=== PATIENT | female | born 1985 | race Caucasian/White ===

== ENCOUNTER → 2021-10-26 | Outpatient (CLI) | payer OTHER, MEDICAID, SELFPAY ==
[2021-10-26 18:27] LABS: T4 Free Direct 1.04 ng/dL (0.76-1.46); Thyroid Stim Hormone (TSH) 1.01 uIU/mL (0.358-3.74)
[2021-10-28 10:44] LABS: Thyroid Peroxidase AB < 8 IU/mL (0-34)
== END | disposition home or self-care (01) ==
LOC: BIMLAB 15:58
PROVIDERS: Referring Provider Internal Medicine Endocrinology, Diabetes & Metabolism; Visit Provider Internal Medicine Endocrinology, Diabetes & Metabolism
DX: E04.9 Nontoxic goiter, unspecified (principal)
CPT/HCPCS: 36415; 84439; 84443; 86376

== ENCOUNTER 2022-05-10 08:11 | Day surgery (SDC) | payer OTHER, MEDICAID, SELFPAY ==
[2022-05-10] VITALS (8 sets, daily range): BP systolic 113–160; BP diastolic 64–98; PULSE 49–72; RESP 16; TEMP 36.1–36.6; O2SAT 95–100; BMI 34.2
[2022-05-10] MEDS: Lactated Ringers 1,000 ML 15 ML IV (08:45)
--- NOTE | 2022-05-10 09:50 | TUR_PTH ---
PATIENT: KONG COURTNEY LOC: [facility] U#:[id number] AGE/SX: 36/F ROOM: RE05/10/[address]: Dr. Dev Mesa MD : [id number] BED: DIS: 05/10/2022 SPEC #: [id number] RECD: 05/10/22 11:09 STATUS: JELLY ALONSO #: [id number] LAUREN: 05/10/22 09:[address]: Dev Mesa DEPT: SURGICAL PATHOLOGY RECD BY: Elaine Lara ENTERED: 05/10/22 11:28 SP TYPE: TURBINATES OTHR DR: No Primary Care Phys Tissues: Nasal turbinate, NOS Procedures: Decalcification bone/plaque Surgery Specimen Level IV HEADER OPERATION: Septoplasty, partial resection inferior turbinates PRE-OP DIAGNOSIS: Nasal congestion, hypertrophy nasal turbinates, deviated nasal septum TISSUE SUBMITTED: Bone, cartilage, turbinates MICROSCOPIC DIAGNOSIS Bone, cartilage and turbinate: Fragments of benign respiratory mucosa, blood and mucus. A fragment of benign squamous epithelium. A fragment of cartilage, clinically deviated nasal septum. SJ:isaac 05/13/2022 MICROSCOPIC DESCRIPTION Slides are reviewed. GROSS DESCRIPTION Received in fixative is one container labeled with the patient's name and designated bone and cartilage, turbinates. The specimen consists of multiple irregular fragments of pink-daily soft tissue that in aggregate measure 2.5 x 2 x 0.2 cm. Also present in the specimen container is an irregular fragment of daily-white gritty tissue measuring 1 x 0.2 x 0.2 cm. The specimen is totally submitted in two cassettes as follows: 1??soft tissue, 2 - gritty tissue after decalcification. / AM:isaac 05/10/2022 TC:[address] [facility]: [id number], [id number]
--- NOTE | 2022-05-10 09:52 | PCM.DC.SUM ---
Providers Primary Care Physician: No Primary Care Phys Reason For Visit: SEPTOPLASTY,PARTIAL RESECTION INFERIOR TURBINATES Medications at Discharge Home Medications loratadine 10 mg tablet (Claritin) 10 mg PO DAILY PRN PRN Allergy Symptoms 10/26/21 cyanocobalamin (B12)-cobamamide 5,000 mcg-100 mcg sublingual lozenge (B12) 1 duane sublingual DAILY 05/04/22 Weight / BMI Weight Weight: 87.5 kg Body Mass Index (BMI) 34.2 D/C Instructions Discharge Diet: No restrictions Additional Activity Instructions: No nose blowing. Start saline nasal spray on 05/11/22. [place] 3 squirts each nostril 3x/day. Please Follow Up With: Dev Mesa MD When: 8 days Meaningful Use Info Meaningful Use Diagnoses (Choose all that apply): None applicable Discharge Plan Admission Attending Provider: Dev Mesa Primary Care Provider: Care PhysicianLouise Primary Discharge Orders/Prescriptions Prescriptions: No Action loratadine [Claritin] 10 mg tablet 10 mg PO DAILY PRN PRN (Reason: Allergy Symptoms) B12 5,000-100 mcg Lozenge 1 duane SUBLINGUAL DAILY Referrals / Follow Up: Care Physician,No Primary [Primary Care Provider] - Disposition Disposition (needs filled in before D/C Order can be placed): Home, Self Care
[2022-05-10] MEDS: Oxymetazoline 0.05% 1 SPRAY SPRAY.BTL 15 SPRAY (10:02)
[2022-05-10] MEDS: Lidocaine 2% /Epi 1:100 (20ml) 20 ML VIAL OPERA.SITE (10:02)
[2022-05-10] MEDS: Mupirocin Ointment 22gm Tube 1 APPLIC (10:21)
--- NOTE | 2022-05-10 10:40 | PCM.OPRPT ---
Report of Operation Date of Procedure: 05/10/22 Pre-Operative Diagnosis: nasal airway obstruction; deviated septum; inferior turbinate hypertophy Post-Operative Diagnosis: same Surgery/Procedure Performed:: septoplasty bilateral submucous resection inferior turbinates Surgeon: Dev Mesa Type of Anesthesia: General Anesthesiologist: Clifford Gaston Estimated Blood Loss (mL): minimal Description of Procedure: The patient was taken to the operating room on 05/10/2022. He was placed in supine position on the operating table. He was given sufficient general endotracheal anesthesia. The table was elevated 30 degrees. The nose was draped sterilely. 2% lidocaine with epinephrine was injected into the septum nasal floor anterior aspect of the inferior turbinates bilaterally. Nasal hair was trimmed with the scissors and removed. A right hemitransfixion incision was made with a 15 blade. The mucoperichondrium was elevated off of the left-hand side of the septum with a [place] elevator. Dissection was carried back until no cartilage was visualized about midway back. She had clearly had cartilage removed from a previous surgery. I the quadrangular cartilage from the maxillary crest. I then removed deviated portions of the quadrangular cartilage inferiorly. I then scored the remaining cartilage with a 15 blade. Hemostasis was achieved with Afrin pledgets. Next, an incision was placed anterior aspect of the right inferior turbinate at the mucocutaneous junction. A submucous plane established with a caudal elevator. Submucous resection was carried out using a microdebrider where bone and tissue was removed. Afrin pledgets were used for hemostasis. The incision was then closed with 4-0 chromic. Then, an incision was placed at the anterior aspect of the left inferior turbinate at the mucocutaneous junction. A submucous plane established using a caudal elevator. Submucous resection was carried out using a microdebrider where bone and tissue were removed. The incision was then closed with 4-0 chromic. Afrin and Maritza were used for hemostasis. The hemitransfixion incision was closed with 4-0 chromic. Franco nasal splints were applied to each side of the septum and sewn through and through with 3-0 silk. The patient was then awoken and brought to the recovery room in stable condition. Blood loss minimal, replacement none. Sponge, needle count, sponge count, were correct at the end of this procedure.
[2022-05-10] MEDS: HYDROcodone Bitartrate/Apap 5/325 Tablet PO (12:38)
== END 2022-05-10 14:45 | disposition home or self-care (01) ==
LOC: SDC 08:14 → AC 08:17
PROVIDERS: Referring Provider Otolaryngology; Visit Provider Otolaryngology
PROC: (CPT 30520; principal; 2022-05-10 09:35)
DX: J34.2 Deviated nasal septum (principal); J34.89 Other specified disorders of nose and nasal sinuses; R09.81 Nasal congestion; J34.3 Hypertrophy of nasal turbinates; F41.9 Anxiety disorder, unspecified; Z87.891 Personal history of nicotine dependence
CPT/HCPCS: 30520; 30140; 00160; 88304; 88305; 88311; J7120; J2405

== ENCOUNTER → 2022-10-23 | Outpatient (CLI) | payer OTHER, MEDICAID, SELFPAY ==
--- NOTE | 2022-10-23 09:09 | CT_ITS ---
STUDY: CT MAXILLOFACIAL SINUSES REASON FOR EXAM: Female, 36 years old. SINUSITIS RADIATION DOSAGE (If Supplied By Facility): CTDIvol = ( 33.06 ) mGy, DLP = ( 742.94 ) mGycm TECHNIQUE: The patient was scanned in a multi detector CT scanner. High resolution axial imaging was performed without the administration of intravenous contrast material. Sagittal and coronal images were reconstructed. Individualized dose optimization techniques were used for this CT. COMPARISON: None. FINDINGS: FRONTAL SINUSES: Normal aeration, without mucosal inflammatory disease. ETHMOIDAL SINUSES: Normal aeration, without mucosal inflammatory disease. MAXILLARY SINUSES: Mucous retention cysts/polyps in the maxillary sinus bases SPHENOIDAL SINUSES: Normal aeration, without mucosal inflammatory disease. There is patency of the bilateral maxillary infundibuli with normal uncinate processes, ethmoid bullae, and hiatus semilunaris. Normal bilateral middle turbinates. Normal bilateral inferior turbinates. Normal midline nasal septum. There is patency of the bilateral nasal airways. The visualized osseous structures are normal. The visualized bilateral orbital contents are normal. CT/Sinus/Facial Bone IMPRESSION: Mucous retention cysts/polyps in the bases of both maxillary sinuses. Ostiomeatal complexes are widely patent No demonstrated fracture or suspicious osseous lesion Electronically Signed: Donovan Santillan MD at 13:56 EDT ,
== END | disposition home or self-care (01) ==
LOC: CT 09:07
PROVIDERS: PCP Registered Nurse; Visit Provider Otolaryngology
DX: J32.8 Other chronic sinusitis (principal)
CPT/HCPCS: 70486

== ENCOUNTER 2025-01-12 10:01 | Emergency (ER) | payer MEDICAID, SELFPAY ==
[2025-01-12 10:02] VITALS: BP 119/75; PULSE 58; RESP 16; TEMP 37; O2SAT 99; BMI 35.9
--- NOTE | 2025-01-12 10:26 | EKG12_ITS ---
Test Reason : CP/ABD PAIN Blood Pressure : */* mmHG Vent. Rate : 49 BPM Atrial Rate : 49 BPM P-R Int : 156 ms QRS Dur : 80 ms QT Int : 472 ms P-R-T Axes : 27 27 5 degrees QTcB Int : 426 ms Sinus bradycardia Otherwise normal ECG Confirmed by JILL BOYCE, HIRA ([id number]), editor school photograph RICHARD CERVANTES ([id number]) on 01/14/2025 11:30:37 AM Referred By: Confirmed By: HIRA MELCHOR MD
--- NOTE | 2025-01-12 10:27 | EX.ED.DYSGE1 ---
HPI History of Present Illness Chief Complaint: Chest Pain Detail of Chief Complaint: Chest and abdomen pain Informant: patient Narrative Narrative: Patient presents with chest and abdomen pain. She states she has been having abdominal pain for about a week. She was seen in the emergency department at [facility] 5 days ago and had an ultrasound of the gallbladder. She was called 2 days ago and told she had a gallstone in her bile duct. Patient has had prior cholecystectomy. She complains of upper abdomen pain that radiates to her right chest and into her back. Also complains of some inflammation in her throat. Today she was doing some gardening and developed some discomfort in her left chest. She does have history of anxiety. Currently rates her pain a 6 out of 10. She has had nausea. Vomited twice this week. Pain in her abdomen made worse by eating at times. [facility] Medical History (Updated 01/12/25 @ 12:[address] Jas Brown, ) FHx: cholecystectomy History of thyroid nodule Anxiety Migraine headache Heartburn Gastric reflux Former smoker History of edema Weight gain Nodular goiter Carpal tunnel syndrome Cholecystectomy planned Tonsillectomy planned Leaky heart valve GERD (gastroesophageal reflux disease) Pneumonia Headache Gastrointestinal problem Gallstone H/O emotional problems Carpal tunnel syndrome UTI (urinary tract infection) Asthma Anemia Home Medications ?Medication ?Instructions ?Recorded ?Last Taken ?Type cholecalciferol (vitamin D3) 25 25 mcg PO DAILY 01/12/25 Unknown History mcg (1,000 unit) capsule fluticasone propionate 50 1 - 2 spray intranasal DAILY 01/12/25 Unknown History mcg/actuation nasal spray,suspension hydrocodone-acetaminophen 5-325mg 1 tab PO Q4H PRN PRN Pain 2 days 01/12/25 Unknown Rx 5mg-325mg #10 TABLETS omeprazole 40 mg capsule,delayed 40 mg PO DAILY 01/12/25 01/12/25 History release ondansetron 4 mg disintegrating 4 mg PO Q8H 01/12/25 Unknown History tablet ondansetron 4 mg disintegrating 4 mg PO Q8H PRN PRN Nausea #10 tabs 01/12/25 Unknown Rx tablet Allergy/AdvReac Type Severity Reaction Status Date / Time bee venom protein (honey Allergy Swelling Verified 01/12/25 10:02 bee) (bees) morphine AdvReac Severe swelling Verified 01/12/25 10:02 Family History Other Alcohol abuse Anxiety Depression Hypertension Surgical History H/O rhinoplasty H/O total hysterectomy Previous section Social History Smoking Status: Former smoker alcohol intake: current alcohol intake frequency: holidays/special occasions only substance use type: does not use ROS ROS ED Review of Systems ROS Unobtainable: other Constitutional Constitutional ED: Reports lethargy; Denies chills, fever(s), sweats or weight loss Eyes Eyes: Denies blurry vision, change in vision or diplopia ENT ENT ED: Denies rhinorrhea or sore throat Cardiovascular Cardiovascular: Reports chest pain; Denies orthopnea or racing heartbeat Respiratory/Chest Respiratory/Chest: Reports dyspnea and dyspnea on exertion; Denies cough, orthopnea or sputum Gastrointestinal Gastrointestinal: Reports abdominal pain, nausea and vomiting; Denies diarrhea Genitourinary Genitourinary ED: Denies dysuria, hematuria or urinary frequency Musculoskeletal Musculoskeletal: Denies arthralgias, back pain, myalgias or neck pain Integumentary Denies abscess, Abrasions or rash Neurologic Neurologic: Denies headache(s) or weakness Psychiatric Psychiatric: Denies anxiety, depression or suicidal thoughts Endocrine Endocrinology: Denies polydipsia, polyphagia or polyuria Hematologic/Lymphatic Hematologic/Lymphatic: Denies easy bleeding, easy bruising or lymphadenopathy Allergic/Immunologic Allergic/Immunologic ED: Denies mouth swelling, tongue swelling or urticaria EXAM Physical Exam Const Vital Signs: 01/12/25 10:02 01/12/25 10:10 01/12/25 12:01 Temperature 98.6 F Temperature Source Oral Pulse Rate 58 L 44 L Respiratory Rate 16 18 Respiratory Effort Normal Blood Pressure 119/75 105/65 Blood Pressure Mean 89 78 Pulse Ox 99 100 Oxygen Delivery Method Room Air Room Air 01/12/25 12:23 Temperature 98.6 F Temperature Source Pulse Rate 44 L Respiratory Rate 18 Respiratory Effort Blood Pressure 105/65 Blood Pressure Mean 78 Pulse Ox 100 Oxygen Delivery Method Positive well nourished and well developed General Appearance ED: well developed and NAD HEENT Reports TM's clear and moist mucous membranes normocephalic and atraumatic; Negative for trauma or tenderness Tympanic Membrane ED: Yes TM's clear Eyes PERRL and EOMs intact bilaterally General Eye ED: Negative for pale conjunctiva or scleral icterus Neck no lymphadenopathy, supple and no JVD General: Negative for tenderness Chest Wall inspection of chest normal and palpation of chest normal Chest: Negative for tenderness Resp normal respiratory effort and clear to auscultation bilaterally Effort and Inspection: Negative for respiratory distress or pain with movement Auscultation: Negative for rhonchi, wheezes or diminished lung sounds Cardio regular rate, regular rhythm, S1 normal heart sound, S2 normal heart sound and no murmurs Peripheral Pulses: pulses 2+ throughout GI normal to inspection, nondistended, normoactive bowel sounds, soft to palpation, non-distended and no masses GI Narrative: Tenderness palpation over the right upper quadrant and epigastric region with some guarding. There is no rebound, rigidity, peritoneal signs. No mass palpated Back/Spine no CVA tenderness and no thoracic nor lumbar tenderness Extremity normal to inspection General Extremety ED: Negative for edema General Extremity: Negative for edema Neuro oriented x3, CN's II-XII intact bilaterally, no sensory deficits noted and gait normal Sensorium / Orientation: awake, alert, oriented to person, oriented to place and oriented to time Motor Exam: strength 5/5 throughout and strength abnormal Psych mental status grossly normal Skin no rashes or lesions noted and no wounds MDM MDM MDM Narrative Medical decision making narrative: Patient presents with abdominal pain for a week. Pain in the right upper abdomen and epigastric region. Had an ultrasound 5 days ago that showed possibility of a retained stone within the common bile duct that she has had prior cholecystectomy. Clinically she looks well on arrival. IV line established. She was medicated with Dilaudid and Zofran. CBC with differential white count 5.3 with hemoglobin 12.8 and platelet count of 233. Chemistries unremarkable. LFTs were normal. Lactate less than 1. EKG obtained on arrival showed sinus bradycardia with a rate of 49 bpm with no acute ST segment changes. Troponin was normal at less than 6. Lipase normal at 31. I did obtain a CT scan of the abdomen pelvis with IV contrast that showed no acute disease process. I was able to obtain results of ultrasound from [facility] which showed common bile duct measuring 6.5 mm which is considered normal postcholecystectomy. An echo genic density measuring 1.2 x 0.8 x 0.6 cm is visualized within the common bile duct which may represent a stone. Discussed case with general surgeon on-call Dr. Zhang. He felt patient could follow-up as an outpatient with GI versus transfer to another facility where they have GI coverage as he does not do ERCPs currently. I had conversation with patient and she does not want to be transferred at this time. She would like to go home and try to manage her diet. Will write her prescription for Zofran and hydrocodone for pain. Will refer to GI to follow-up as an outpatient as she may need EGD and possibly ERCP. Patient advised return if worsening pain, fever, vomiting, or condition should worsen in any way. Lab Data Attestation: I reviewed the patient's lab results. Labs: Laboratory Results - last 24 hr 01/12/25 01/12/25 10:18 10:35 WBC 5.3 RBC 4.35 Hgb 12.9 Hct 37.7 MCV 86.7 MCH 29.7 MCHC 34.2 RDW Std Deviation 40.4 RDW Coeff of Gay 13.0 Plt Count 233 MPV 10.3 Immature Gran % (Auto) 0.200 Neut % (Auto) 56.2 Lymph % (Auto) 29.8 Barry % (Auto) 9.4 Eos % (Auto) 3.8 Baso % (Auto) 0.6 Absolute Neuts (auto) 3.0 Absolute Lymphs (auto) 1.58 Nucleated RBC % 0 Sodium 137 Potassium 4.2 Chloride 104 Carbon Dioxide 22.7 Anion Gap 11 BUN 18 Creatinine 0.78 Estim Creat Clear Calc 102.30 Est GFR (MDRD) Non-Af 97 BUN/Creatinine Ratio 22.7 H Glucose 91 Lactic Acid < 1.0 Calcium 9.3 Total Bilirubin 0.30 AST 23 ALT 21 Alkaline Phosphatase 69 Troponin T High Sens < 6 Total Protein 7.2 Albumin 4.4 Globulin 2.8 Albumin/Globulin Ratio 1.6 Lipase 31 Radiography Diagnostic Testing: Clinical Impression(s) from Imaging Studies Abdomen/Pelvis CT 01/12/25 11:00 IMPRESSION: Unremarkable CT abdomen pelvis. Reading Location: [id number] EKG Initial EKG: Attestation: I personally reviewed and interpreted this EKG as follows: Comments: Sinus rhythm with ventricular rate of 49 bpm with no acute ST segment change Discharge Plan Triage Chief Complaint: Chest Pain ED Provider: Jas Brown Dx/Rx/DC Orders Clinical Impression: Abdominal pain Instructions: ED Abdominal Pain Unkn Cause Fem Prescriptions: New hydrocodone-acetaminophen 5-325 mg tablet 1 tab PO Q4H PRN PRN (Reason: Pain) 2 Days Qty: 10 0RF ondansetron 4 mg tablet,disintegrating 4 mg PO Q8H PRN PRN (Reason: Nausea) Qty: 10 0RF No Action fluticasone propionate 50 mcg/actuation spray,suspension 1 - 2 spray INTRANASAL DAILY omeprazole 40 mg capsule,delayed release(DR/EC) 40 mg PO DAILY ondansetron 4 mg tablet,disintegrating 4 mg PO Q8H cholecalciferol (vitamin D3) 25 mcg (1,000 unit) capsule 25 mcg PO DAILY Primary Care Provider: Anisa Vee NP Referrals: Lamin Herrera DO [Med Staff - Active Staff] - 3-5 Days Anisa Vee NP, DISPOSITION CLERK-C [Primary Care Provider] - Print Language: Estonian Disposition Disposition: Home, Self Care
[2025-01-12] MEDS: 0.9% Normal Saline (1000mL) 1,000 ML 125 ML IV (10:36)
[2025-01-12 10:43] LABS: Hematocrit 37.7 % (37-47); Hemoglobin 12.9 g/dL (12.0-15.0); Immature Granulocytes Count 0.010 X10^3/uL (0.0-0.0); Mean Corp Hgb Conc 34.2 g/dL (32-36); Mean Corpuscular Volume 86.7 fL (81-99); Mean Platelet Vol. 10.3 fl (6.2-12.0); NRBC Flagged by Analyzer 0 % (0-5); Platelet Count 233 K/mm3 (150-450); RBC Distribution Width CV 13.0 % (11.6-14.6); RBC Distribution Width SD 40.4 fl (35.1-43.9); Red Blood Count 4.35 M/mm3 (4.2-5.4); White Blood Count 5.3 K/mm3 (4.4-11.0)
[2025-01-12 10:57] LABS: AST(SGOT) 23 U/L (<=31); Alanine Aminotransfer ALT/SGPT 21 U/L (<=34); Albumin, Serum 4.4 g/dL (3.5-5.0); Alkaline Phosphatase 69 U/L (35-104); Anion Gap 11 (5-15); BUN 18 mg/dL (4-19); BUN/Creat Ratio 22.7 RATIO (10-20); Calcium,Total 9.3 mg/dL (7.6-11.0); Carbon Dioxide 22.7 mmol/L (21.0-32.0); Chloride 104 mmol/L (98-108); Estimated Creatinine Clearance 102.30 ml/min (50-250); Globulin 2.8 g/dL (2.2-4.2); Glucose 91 mg/dL (70-99); Lipase 31 U/L (13-75); Potassium 4.2 mmol/L (3.3-5.1)
[2025-01-12 10:58] LABS: Troponin T High Sensitivity < 6 ng/L (<=14)
--- NOTE | 2025-01-12 11:00 | CT_ITS ---
PROCEDURE: ABDOMEN/PELVIS W IV CONT ONLY 01/12/2025 REASON FOR EXAM: ABDOMINAL PAIN TECHNIQUE: ABDOMEN/PELVIS W IV CONT ONLY Coronal and Sagittal reconstruction series were provided. CONTRAST: Isovue 370 VOLUME: 100 mL One or more dose reduction techniques were used (e.g., Automated exposure control, adjustment of the mA and/or kV according to patient size, use of iterative reconstruction technique. RADIATION DOSE SUMMARY: DLP: 1200 mGycm COMPARISON: None. FINDINGS: Lung bases: Bibasilar atelectasis. Liver: The liver is normal in size without suspicious hepatic mass. The major portal veins are patent. Minimal biliary ductal dilation. Gallbladder: Surgically absent. Spleen: Normal in size. Pancreas: Unremarkable. Adrenals: No adrenal mass. Kidneys: No hydronephrosis or nephrolithiasis. Bladder: Distended and unremarkable. Reproductive Organs: Prior hysterectomy. Bowel: The bowel loops are nondilated. No ascites or pneumoperitoneum. Normal appendix. Lymph nodes: No suspicious lymph node enlargement. Vasculature: The abdominal aorta and IVC are normal. Bones: Unremarkable. CT/Abdomen/Pelvis W IV Cont ONLY IMPRESSION: Unremarkable CT abdomen pelvis. Reading Location: [id number]
--- OUTSIDE RECORDS SUMMARY | 2025-01-12 11:16 | XMS RPT_ITS | CCD ---
Author Organization [facility] Care Team Providers Care Construction Supervisor/Carpenter Name Role Phone MARILIN BOYCE, TEJAS Batista Primary Care Physician Dr. Conrad Jenkins Attending Provider [phone] JANESSA COLEMAN-MORIS, ANISA Stroud Primary Care Physi vivian Care Physician, No Primary Primary Care Unava ilable Dev Mesa Referring Unavailable Dev Mesa Attending Unavailable Conrad Jenkins Attending Unavailable Conrad Jenkins Referring Unavailable [place] Germain Attending Unavailalexa e Anisa Riddle Primary Care Unavailable Conrad Jenkins Attending Unavailable ANISA RIDDLE Primary Care Unavailable SUPPAN DPM, LEEROY Najera Attending Unavailable SUPPAN DPM, LEEROY Najera Attending Unavailable ANISA RIDDLE Primary Care Unavailable JANESSA, ANISA Primary Care Unavailable SUPPAN DPM, LEEROY Najera Attending Unavailable DONNIE RIDDLEBETH Primary Care Unavailable SUPPAN DPM, LEEROY Najera Attending Unavailable JANESSA, ANISA Primary Care Unavailable CELINE YEBOAH Attending Unavailable ANISA RIDDLE Primary Care Unavailable CELINE YEBOAH Attending Unavailable JANESSA COLEMAN-MORIS, ANISA Stroud Primary Care Un available VANESSA AVITIA DO Attending Unavailable VANESSA AVITIA DO Attending Unavailable ANISA PINA Primary Care Un available LY PAETL Attending Unava ilable JANESSA COLEMAN-MORIS, ANISA A Primary Care Un available Allergies Allergy Classification Reported Allergen(s) Allergy Type Date of Onset Reaction(s) Facility (14 sources) Bee/Wasp/Ant venom Allergy to substance Swelling [facility] (9 sources) Morphine; Translations: [morphine] Drug Allergy 2 Edema (finding) [facility] Comment on above: swelling of face and hands (1 source) Morphine Drug Allergy 2 [facility] Repository Medications Current Medications Medication Drug Class(es) Dates Sig (Normalized) Sig (Original) acetaminophen 650 mg oral tablet (3 sources) Start: 12-22-2020 Tylenol 8 Hour 650 mg oral tablet, extended release Dose : 1,300 mg = 2 tab(s), Oral, q8h, PRN as needed for pain, # 24 tab(s), 0 Refill(s) Start Date: 12/22/20 Status: Ordered albuterol 0.83 mg/ml inhalation solution (5 sources) beta2-Adrenergic Agonist Start: 05-10-2023 take 1 dose by inhalation every four hours as needed albuterol 2.5 mg/3 mL (0.083%) inhalation solution Dose : 2.5 mg = 3 mL, Inhalation, q4h, PRN for wheezing, # 60 EA, 0 Refill(s), Pharmacy: [facility] #[id number], Asthma, 159, cm, 05/10/23 13:16:00 EST, Height, kg, 05/10/23 13:16:00 EST, Dosing Weight Start Date: 05/10/23 Status: Ordered Quantity: 60.0 Unit: EA Repeat number: 1 Indications: Unspecified asthma, uncomplicated; albuterol MDI (90 mcg/inh) CFC free inhalation aerosol (7 sources) Start: 03-08-2024 take 1 puff(s) by inhalation every four hours as needed for wheezing albuterol MDI (90 mcg/inh) CFC free inhalation aerosol 1 puff(s), Inhalation, q4h, PRN as needed for wheezing, # 18 gram(s), 0 Refill(s), Pharmacy: [facility]/pharmacy #[id number], 162.6, cm, 03/08/24 9:58:00 EDT, Height, kg, 03/08/24 9:58:00 EDT, Dosing Weight Start Date: 03/08/24 Status: Ordered Quantity: 18.0 Unit: g Repeat number: 1 Start: 03-08-2024 take 1 puff(s) by in halation every four hours as needed for wheezing albuterol MDI (90 mcg/inh) CFC free inhalation aerosol 1 puff(s), Inhalation, q4h, PRN as needed for wheezing, # 18 gram(s), 0 Refill(s), Pharmacy: [facility]/pharmacy #[id number], 162.6, cm, 03/08/24 9:58:00 EDT, Height, kg, 03/08/24 9:58:00 EDT, Dosing Weight Start Date: 03/08/24 Status: Ordered Start: 01-25-2023 take 1 puff(s) by in halation every four hours as needed for wheezing albuterol MDI (90 mcg/inh) CFC free inhalation aerosol 1 puff(s), Inhalation, q4h, PRN as needed for wheezing, # 18 gram(s), 0 Refill(s), Pharmacy: [facility] #[id number], 163, cm, 01/25/23 15:58:00 EDT, Height, kg, 01/25/23 15:58:00 EDT, Dosing Weight Start Date: 01/25/23 Status: Ordered CLA (1 source) Start: 10-26-2021 CLA Active PO October 26, 2021 3:08pm cobamamide 0.1 mg / vitamin b12 5 mg sublingual tablet (1 source) Vitamin B12 Start: 05-04-2022 Cyanocobalamin-Cob amamide (B12) 5,000-100 mcg Lozenge Active 1 LOZENGE SL DAILY May 03, 2022 11:00pm diphenhydrAMINE hydrochloride 25 mg oral capsule (2 sources) Histamine-1 Receptor Antagonist Start: 06-05-2021 Benadryl 25 mg oral capsule Dose : 25 mg = 1 cap(s), Oral, qDay, PRN for allergy symptoms, 0 Refill(s) Start Date: 06/05/21 Status: Ordered esomeprazole 20 mg oral tablet (1 source) Proton Pump Inhibitor Start: 10-26-2021 take 20 mg by mouth once daily Esomeprazole Magnesium Active 20 MG PO DAILY October 26, 2021 3:06pm herbal/nutritional product (4 sources) Start: 02-16-2024 take 3 capsules by mouth twice daily herbal/nutritional product 3 cap, Oral, BID, 0 Refill(s) Start Date: 02/16/24 Status: Ordered Repeat number: 1 Start: 02-16-2024 take 3 capsules by m outh twice daily herbal/nutritional product 3 cap, Oral, BID, 0 Refill(s) Start Date: 02/16/24 Status: Ordered ibuprofen 200 mg oral tablet (3 sources) Nonsteroidal Anti-inflammatory Drug Start: 03-08-2024 take 1 mg by mouth every six hours as needed for pain ibuprofen 200 mg oral tablet mg = tab(s), Oral, q6hr, PRN as needed for pain, 0 Refill(s) Start Date: 03/08/24 Status: Ordered Repeat number: 1 loratadine 10 mg oral tablet (5 sources) Start: 10-26-2021 take 1 tablet by mouth once daily Loratadine (Claritin) 10 mg tablet Active 10 MG PO DAILY October 26, 2021 3:08pm Start: 06-02-2021 Claritin 10 mg oral tablet Dose : 10 mg = 1 tab(s), Oral, qDay, # 90 tab(s), 0 Refill(s) Start Date: 06/02/21 Status: Ordered Multivitamin preparation (1 source) Start: 10-09-2021 take 1 tablet by mouth once daily Multivitamin Dose = 1 tab(s), Oral, Daily, 0 Refill(s) Start Date: 10/09/21 Status: Ordered nitrofurantoin, macrocrystals 25 mg / nitrofurantoin, monohydrate 75 mg oral capsule (1 source) Nitrofuran Antibacterial Start: 10-24-2023 End: 10-31-2023 nitrofurantoin macrocrystals-monoh ydrate 100 mg oral capsule Dose : 100 mg = 1 cap(s), Oral, BID, Take with food, X 7 day(s), # 14 cap(s), 0 Refill(s), 10/31/23 11:24:00 AM EDT, Pharmacy: [facility] #[id number], UTI symptoms, 159, cm, 10/24/23 11:01:00 EDT, Height, 79.1, kg, 10/24/23 11:01:00 EDT, Dosing Weight Start Date: 10/24/23 Stop Date: 10/31/23 Status: Ordered omeprazole 40 mg delayed release oral capsule (7 sources) Proton Pump Inhibitor Start: 01-07-2025 omeprazole 40 mg oral delayed release capsule Dose : 40 mg = 1 cap(s), Oral, qDay, # 90 cap(s), 3 Refill(s), [id number], GERD (gastroesophageal reflux disease), 162.6, cm, 03/08/24 9:58:00 EDT, Height, kg, 01/07/25 9:50:00 EDT, Dosing Weight Start Date: 01/07/25 Status: Ordered Quantity: 90.0 Unit: cap(s) Repeat number: 4 Indications: Gastro-esophageal reflux disease without esophagitis; Start: 03-08-2024 omeprazole 20 mg oral delayed release capsule Dose : 20 mg = 1 cap(s), Oral, qDay, # 90 cap(s), 0 Refill(s), Pharmacy: [facility]/pharmacy #[id number], 162.6, cm, 03/08/24 9:58:00 EDT, Height, kg, 03/08/24 9:58:00 EDT, Dosing Weight Start Date: 03/08/24 Status: Ordered Start: 01-25-2023 omeprazole 40 mg oral delayed release capsule Dose : 40 mg = 1 cap(s), Oral, qDay, # 30 cap(s), 0 Refill(s), Pharmacy: [facility] #[id number], 163, cm, 01/25/23 15:58:00 EDT, Height, kg, 01/25/23 15:58:00 EDT, Dosing Weight Start Date: 01/25/23 Status: Ordered Start: 09-21-2022 omeprazole 40 mg oral delayed release capsule Dose : 40 mg = 1 cap(s), Oral, qDay, # 30 cap(s), 0 Refill(s), Pharmacy: [facility] #[id number], Dysphagia Chronic GERD, 162, cm, 09/21/22 9:34:00 EDT, Height Start Date: 09/21/22 Status: Ordered ondansetron 4 mg disintegrating oral tablet (2 sources) Serotonin-3 Receptor Antagonist Start: 01-07-2025 End: 01-17-2025 ondansetron 4 mg oral tablet, disintegrating Dose : 4 mg = 1 tab(s), Oral, q6h, X 10 day(s), # 30 tab(s), 0 Refill(s), 01/17/25 10:40:00 AM EDT, Pharmacy: [facility]/pharmacy #[id number], RUQ pain GERD (gastroesophageal reflux disease), 162.6, cm, 03/08/24 9:58:00 EDT, Height, kg, 01/07/25 9:50:00 EDT, Dosing Weight Start Date: 01/07/25 Stop Date: 01/17/25 Status: Ordered Quantity: 30.0 Unit: tab(s) Repeat number: 1 Indications: Gastro-esophageal reflux disease without esophagitis; Right upper quadrant pain; pantoprazole 40 mg delayed release oral tablet (1 source) Proton Pump Inhibitor Start: 10-09-2021 pantoprazole 40 mg o ral enteric coated tablet Dose : 40 mg = 1 tab(s), Oral, qDayAC, # 30 tab(s), 4 Refill(s), Pharmacy: [facility] 162.6, cm, 10/09/21 11:30:00 EDT, Height Start Date: 10/09/21 Status: Ordered Probiotic (3 sources) Start: 03-08-2024 Probiotic 0 Re fill(s) Start Date: 03/08/24 Status: Ordered Repeat number: 1 Start: 03-08-2024 Probiotic 0 Re fill(s) Start Date: 03/08/24 Status: Ordered sulfamethoxazole 800 mg / trimethoprim 160 mg oral tablet (1 source) Dihydrofolate Reductase Inhibitor Antibacterial, Sulfonamide Antimicrobial Start: 09-06-2022 End: 09-13-2022 take 1 tablet by mouth twice daily sulfamethoxazole-trimethoprim 800 mg-160 mg oral tablet Dose = 1 tab(s), Oral, BID, X 7 day(s), # 14 tab(s), 0 Refill(s), Pharmacy: [facility] #[id number], 162.5, cm, 09/06/22 9:50:00 EST, Height, 88.5 Start Date: 09/06/22 Stop Date: 09/13/22 Status: Ordered VITAMIN D HIGH POTENCY 25 MCG (1000 UT) CAPS (1 source) Start: 08-11-2023 VITAMIN D HIGH POTENCY 25 MC G (1000 UT) CAPS VITAMIN D HIGH POTENCY 25 MCG (1000 UT) CAPS, 0 Refill(s), 82.6 Start Date: 08/11/23 Status: Ordered Vitamin D3 25 mcg (1000 intl units) oral capsule (3 sources) Start: 03-08-2024 End: 03-03-2025 Vitamin D3 25 mcg (1000 intl units) oral capsule Dose : 25 mcg = 1 cap(s), Oral, qDay, # 90 cap(s), 3 Refill(s), [id number], 162.6, cm, 03/08/24 9:58:00 EDT, Height, kg, 03/08/24 9:58:00 EDT, Dosing Weight Start Date: 03/08/24 Stop Date: 03/03/25 Status: Ordered Quantity: 90.0 Unit: cap(s) Repeat number: 4 Start: 03-08-2024 End: 03-03-2025 Vitamin D3 25 mcg (1000 intl units) oral capsule Dose : 25 mcg = 1 cap(s), Oral, qDay, # 90 cap(s), 3 Refill(s), [id number], 162.6, cm, 03/08/24 9:58:00 EDT, Height, kg, 03/08/24 9:58:00 EDT, Dosing Weight Start Date: 03/08/24 Stop Date: 03/03/25 Status: Ordered Problems Active Problems Problem Classification Problem Date Documented Da te Episodic/Chronic Abdominal pain (4 sources) Epigastric pain; Translations: [Epigastric pain] Episodic Anxiety disorders (14 sources) Anxiety 04-23-2019 Chronic Asthma (14 sources) Asthma 02-12-2014 Chronic Esophageal disorders (20 sources) Gastroesophageal reflux disease 02-12-2014 Chronic Comment on above: with spicy foods Mood disorders (14 sources) Depressive disorder 04-23-2019 Chronic Other circulatory disease (9 sources) Easy bruising 09-21-2022 Episodic Other female genital disorders (4 sources) Vaginal irritation 01-25-2023 Episodic Other gastrointestinal disorders (3 sources) Irritable bowel syndrome 03-08-2024 Chronic Other gastrointestinal disorders (10 sources) Dysphagia 11-21-2020 Episodic Other gastrointestinal disorders (4 sources) Diarrhea; Translations: [Diarrhea, unspecified] Episodic Other gastrointestinal disorders (1 source) Constipation, unspecified; Translations: [Constipation, unspecified] Episodic Other gastrointestinal disorders (3 sources) Constipation 03-08-2024 Episodic Other nutritional; endocrine; and metabolic disorders (14 sources) Obesity 01-02-2021 Chronic Other nutritional; endocrine; and metabolic disorders (2 sources) Weight gain; Translations: [Abnormal weight gain] Episodic Other nutritional; endocrine; and metabolic disorders (1 source) Abnormal weight gain; Translations: [Abnormal weight gain] Episodic Other upper respiratory infections (11 sources) Acute upper respiratory infection; Translations: [Sore throat symptom] 09-06-2022 Episodic Thyroid disorders (16 sources) Goiter; Translations: [Nodular goiter ] Onset: 11-21-2020 Chronic Unclassified (14 sources) Exposure to 2018 novel coronavirus 06-04-2020 Unclassified (7 sources) Patient encounter status 01-25-2023 Past or Other Problems Problem Classification Problem Date Documented Date Episodic/Chronic Genitourinary symptoms and ill-defined conditions (9 sources) Increased frequency of urination; Translations: [Unspecified symptoms and signs involving the genitourinary system] Onset: 10-24-2023 09-06-2022 Episodic Other upper respiratory disease (1 source) Deviated nasal septum; Translations: [Deviated nasal septum] Onset: 05-18-2022 Episodic Results Test Name Value Interpretation Reference Range Facility US ABDOMEN LIMITED 025 US ABDOMEN LIMITED ORIGINAL EXAMINATION: RIGHT UPPER QUADRANT ULTRASOUND 01/09/2025 7:33 am TECHNIQUE: This report is based on interpretation of permanently recorded ultrasound images. COMPARISON: None. HISTORY: ORDERING SYSTEM PROVIDED HISTORY: Reason for Exam: RUQ abdominal pain, diarrhea FINDINGS: LIVER: The liver demonstrates normal echogenicity with a smooth contour without evidence of intrahepatic biliary ductal dilatation. Portal vein demonstrates antegrade flow. BILIARY SYSTEM: Gallbladder has been surgically removed. Common bile duct is measuring 6.5 mm which is considered normal post-cholecystectomy . An echogenic density measuring 1.2 x 0.8 x 0.6 cm is visualized within the common bile duct which may represent a stone. RIGHT KIDNEY: The right kidney is grossly unremarkable measuring 10.2 x 5.6 x 4.2 cm without evidence of hydronephrosis. PANCREAS: Visualized pancreas shows no focal lesion or mass. AORTA AND IVC: The portions visualized of the aorta and IVC are patent. Visualization is compromised due to obstructing gas. OTHER: No evidence of right upper quadrant ascites. IMPRESSION: Common bile duct measuring 6.5 mm which is considered normal post-cholecystectomy . Suspect common duct stone, consider MRCP or ERCP.. I have personally reviewed the images of this examination and agree with the resident's findings and interpretation. Interpreted by: Angela Napier MD Preliminary Report By: Sofie Sánchez Electronically signed By Angela Napier MD Dictated Date: 01/09/2025 9:03:45 AM Prelim Date: 01/09/2025 10:48:26 AM Sign Date: 01/09/2025 10:48:26 AM Ordering Provider: VANESSA AVITIA Interpreted by: Angela Napier MD Preliminary Report By: Sofie Sánchez Electronically signed By Angela Napier MD Dictated Date: 01/09/2025 9:03:45 AM Prelim Date: 01/09/2025 10:48:26 AM Sign Date: 01/09/2025 10:48:26 AM Ordering Provider: VANESSA AVITIA Normal [facility] .Auto Diffon 01-07-2025 Basophil, Absolute 0.0 10 3/mcL Normal 0.0-0.3 [facility] Comment on above: Performed By: #### C BC, ADIFF, ANEU, CMP, GFR, TSHR, LIP #### [address] [address] Basophils/100 WBC (Bld) 0.8 % Normal 0.0-2.5 [facility] Comment on above: Performed By: #### C BC, ADIFF, ANEU, CMP, GFR, TSHR, LIP #### [address] [address] Eosinophil, Absolute 0.3 10 3/mcL Normal 0.0-0.7 [facility] Comment on above: Performed By: #### C BC, ADIFF, ANEU, CMP, GFR, TSHR, LIP #### [address] [address] Eosinophils/100 WBC (Bld) 6.0 % Normal 0.0-6.0 [facility] Comment on above: Performed By: #### C BC, ADIFF, ANEU, CMP, GFR, TSHR, LIP #### [address] [address] Lymphocyte, Absolute 2.0 10 3/mcL Normal 0.9-4.3 [facility] Comment on above: Performed By: #### C BC, ADIFF, ANEU, CMP, GFR, TSHR, LIP #### [address] [address] Lymphocytes/100 WBC (Bld) 33.9 % Normal 20.0-40.0 [facility] Comment on above: Performed By: #### C BC, ADIFF, ANEU, CMP, GFR, TSHR, LIP #### [address] [address] Monocyte, Absolute 0.5 10 3/mcL Normal 0.1-1.4 [facility] Comment on above: Performed By: #### C BC, ADIFF, ANEU, CMP, GFR, TSHR, LIP #### [address] [address] Monocytes/100 WBC (Bld) 8.4 % Normal 2.0-13.0 [facility] Comment on above: Performed By: #### C BC, ADIFF, ANEU, CMP, GFR, TSHR, LIP #### [address] [address] Neutrophils/100 WBC (Bld) 50.9 % Normal 50.0-75.0 [facility] Comment on above: Performed By: #### C BC, ADIFF, ANEU, CMP, GFR, TSHR, LIP #### [address] [address] .GFRon 01-07-2025 Estimated Glomerular Filtration Rate 95 ml/min/1.73sqm Normal [facility] Comment on above: Result Comment: Stages of Chronic Kidney Disease (CKD) Stage Description eGFR(ml/min/1.73 sq.m.) CKD 1 Normal kidney function or >=90 normal kindney function with possible kidney damage (ex. Proteinuria) CKD 2 Kidney damage with mild loss 60-89 of kidney function CKD 3a Mild to moderate loss of kidney 45-59 function CKD 3b Moderate to severe loss of 30-44 of kindey function CKD 4 Severe loss of kidney function 15-29 CKD 5 Kidney failure <15 Note: (go live 2024) the eGFR calculation was updated to the 2020 CKD-EPI creatinine equation without a race factor to calculate the eGFR results. Performed By: #### C BC, ADIFF, ANEU, CMP, GFR, TSHR, LIP #### [place] [address] .NEUABSon 01-07-2025 Neutrophil, Absolute 3.0 10 3/mcL Normal 2.3-8.1 [facility] Comment on above: Performed By: #### C BC, ADIFF, ANEU, CMP, GFR, TSHR, LIP #### [place] [address] CBCon 01-07-2025 Erythrocyte distribution width (RBC) [Ratio] 13.5 % Normal 11.5-15.5 [facility] Comment on above: Performed By: #### C BC, ADIFF, ANEU, CMP, GFR, TSHR, LIP #### [place] [address] Hematocrit (Bld) [Volume fraction] 38.0 % Normal 34.0-46.0 [facility] Comment on above: Performed By: #### C BC, ADIFF, ANEU, CMP, GFR, TSHR, LIP #### [place] [address] Hgb 12.8 G/dL Normal 12.0-16.0 [facility] Comment on above: Performed By: #### C BC, ADIFF, ANEU, CMP, GFR, TSHR, LIP #### [place] [address] MCH (RBC) [Entitic mass] 29.7 pg Normal 27.0-33.0 [facility] Comment on above: Performed By: #### C BC, ADIFF, ANEU, CMP, GFR, TSHR, LIP #### [place] [address] MCHC 33.7 G/dL Normal 32.0-36.0 [facility] Comment on above: Performed By: #### C BC, ADIFF, ANEU, CMP, GFR, TSHR, LIP #### [place] [address] MCV (RBC) [Entitic vol] 88.1 fL Normal 80.0-99.0 [facility] Comment on above: Performed By: #### C BC, ADIFF, ANEU, CMP, GFR, TSHR, LIP #### [place] [address] Platelet 213 10 3/mcL Normal 150-450 [facility] Comment on above: Performed By: #### C BC, ADIFF, ANEU, CMP, GFR, TSHR, LIP #### [place] [address] Platelet mean volume (Bld) [Entitic vol] 8.4 fL Normal 6.6-10.5 [facility] Comment on above: Performed By: #### C BC, ADIFF, ANEU, CMP, GFR, TSHR, LIP #### [place] [address] RBC 4.31 10 6/mcL Normal 4.10-5.30 [facility] Comment on above: Performed By: #### C BC, ADIFF, ANEU, CMP, GFR, TSHR, LIP #### [place] [address] WBC 5.8 10 3/mcL Normal 4.5-10.8 [facility] Comment on above: Performed By: #### C BC, ADIFF, ANEU, CMP, GFR, TSHR, LIP #### [place] [address] CMPon 01-07-2025 Albumin Level 3.5 G/dL Normal 3.5-5.0 [facility] Comment on above: Performed By: #### C BC, ADIFF, ANEU, CMP, GFR, TSHR, LIP #### [place] [id number] Albumin/Globulin [Mass ratio] 1.0 {ratio} Low 1.1-2.5 [facility] Comment on above: Performed By: #### C BC, ADIFF, ANEU, CMP, GFR, TSHR, LIP #### [place] [address] ALP [Catalytic activity/Vol] 69 U/L Normal 40-135 [facility] Comment on above: Performed By: #### C BC, ADIFF, ANEU, CMP, GFR, TSHR, LIP #### [place] [address] ALT [Catalytic activity/Vol] 24 U/L Normal 14-59 [facility] Comment on above: Performed By: #### C BC, ADIFF, ANEU, CMP, GFR, TSHR, LIP #### [place] [address] AST [Catalytic activity/Vol] 15 U/L Normal 10-40 [facility] Comment on above: Performed By: #### C BC, ADIFF, ANEU, CMP, GFR, TSHR, LIP #### [place] [address] Bili Total 0.3 mg/dL Normal 0.2-1.0 [facility] Comment on above: Result Comment: Use of this assay is not recommended for patients undergoing treatment with eltrombopag due to the potential for falsely elevated results. Performed By: #### C BC, ADIFF, ANEU, CMP, GFR, TSHR, LIP #### [place] [address] BUN/Creatinine Ratio 20 ratio Normal 7-27 [facility] Comment on above: Performed By: #### C BC, ADIFF, ANEU, CMP, GFR, TSHR, LIP #### [place] [id number] Calcium [Mass/Vol] 8.9 mg/dL Normal 8.4-10.2 [facility] Comment on above: Performed By: #### C BC, ADIFF, ANEU, CMP, GFR, TSHR, LIP #### [place] [address] Chloride [Moles/Vol] 106 mmol/L Normal 98-107 [facility] Comment on above: Performed By: #### C BC, ADIFF, ANEU, CMP, GFR, TSHR, LIP #### [place] [address] CO2 [Moles/Vol] 27 mmol/L Normal 22-29 [facility] Comment on above: Performed By: #### C BC, ADIFF, ANEU, CMP, GFR, TSHR, LIP #### [place] [address] Creatinine [Mass/Vol] 0.80 mg/dL Normal 0.51-0.95 [facility] Comment on above: Performed By: #### C BC, ADIFF, ANEU, CMP, GFR, TSHR, LIP #### [place] [address] Electrolyte Balance 8.0 mEq/L Normal 4.0-15.0 [facility] Comment on above: Performed By: #### C BC, ADIFF, ANEU, CMP, GFR, TSHR, LIP #### [place] [address] Globulin 3.6 G/dL Normal 2.7-4.4 [facility] Comment on above: Performed By: #### C BC, ADIFF, ANEU, CMP, GFR, TSHR, LIP #### [place] [address] Glucose [Mass/Vol] 96 mg/dL Normal 70-105 [facility] Comment on above: Performed By: #### C BC, ADIFF, ANEU, CMP, GFR, TSHR, LIP #### [place] [address] Potassium [Moles/Vol] 4.2 mmol/L Normal 3.5-5.1 [facility] Comment on above: Performed By: #### C BC, ADIFF, ANEU, CMP, GFR, TSHR, LIP #### [place] [id number] [place], [place] [address] Sodium [Moles/Vol] 141 mmol/L Normal 136-145 [facility] Comment on above: Performed By: #### C BC, ADIFF, ANEU, CMP, GFR, TSHR, LIP #### [place] [id number] [place], [place] [address] Total Protein 7.1 G/dL Normal 6.4-8.2 [facility] Comment on above: Performed By: #### C BC, ADIFF, ANEU, CMP, GFR, TSHR, LIP #### [place] [id number] [place], [place] [address] Urea nitrogen [Mass/Vol] 16 mg/dL Normal 7-18 [facility] Comment on above: Performed By: #### C BC, ADIFF, ANEU, CMP, GFR, TSHR, LIP #### [place] [id number] [place], [place] [address] LABORATORYOrdered By: SYSTEM SYSTEM on 01-07-2025 Albumin BCP dye [Mass/Vol] 3.5 G/dL Normal 3.5 - 5.0 G/dL AO ADM SS Albumin/Globulin [Mass ratio] 1.0 {ratio} Low 1.1 - 2.5 ratio AO ADM SS ALP [Catalytic activity/Vol] 69 U/L Normal 40 - 135 U/L AO ADM SS ALT With P-5'-P [Catalytic activity/Vol] 24 U/L Normal 14 - 59 U/L AO ADM SS AST With P-5'-P [Catalytic activity/Vol] 15 U/L Normal 10 - 40 U/L AO ADM SS Basophils (Bld) [#/Vol] 0.0 103/mcL Normal 0.0 - 0.3 10^3/mcL AO Workflow SS Basophils/100 WBC (Bld) 0.8 % Normal 0.0 - 2.5 % AO Workflow SS Bilirubin [Mass/Vol] 0.3 mg/dL Normal 0.2 - 1 .0 mg/dL AO ADM SS Comment on above: Interpretive Data: U se of this assay is not recommended for patients undergoing treatment with eltrombopag due to the potential for falsely elevated results. Calcium [Mass/Vol] 8.9 mg/dL Normal 8.4 - 10. 2 mg/dL AO ADM SS Chloride [Moles/Vol] 106 mmol/L Normal 98 - 10 7 mmol/L AO ADM SS CO2 [Moles/Vol] 27 mmol/L Normal 22 - 29 mmol/L AO ADM SS Creatinine [Mass/Vol] 0.80 mg/dL Normal 0.51 - 0.95 mg/dL AO ADM SS Electrolyte Balance 8.0 mEq/L Normal 4.0 - 15 .0 mEq/L AO ADM SS Eosinophil, Absolute 0.3 103/mcL Normal 0.0 - 0 .7 10^3/mcL AO Workflow SS Eosinophils/100 WBC (Bld) 6.0 % Normal 0.0 - 6.0 % AO Workflow SS Erythrocyte distribution width (RBC) [Ratio] 13.5 % Normal 11.5 - 15.5 % AO Workflow SS Estimated Glomerular Filtration Rate 95 ml/min/1.73sqm Invalid Interpretation Code AO Chemistry S Comment on above: Interpretive Data: Stages of Chronic Kidney Disease (CKD) Stage Description eGFR(ml/min/1.73 sq.m.) CKD 1 Normal kidney function or >=90 normal kindney function with possible kidney damage (ex. Proteinuria) CKD 2 Kidney damage with mild loss 60-89 of kidney function CKD 3a Mild to moderate loss of kidney 45-59 function CKD 3b Moderate to severe loss of 30-44 of kindey function CKD 4 Severe loss of kidney function 15-29 CKD 5 Kidney failure <15 Note: (go live 2024) the eGFR calculation was updated to the 2020 CKD-EPI creatinine equation without a race factor to calculate the eGFR results. Globulin 3.6 G/dL Normal 2.7 - 4.4 G/dL AO ADM SS Glucose [Mass/Vol] 96 mg/dL Normal 70 - 105 mg/dL AO ADM SS Hematocrit (Bld) [Volume fraction] 38.0 % Normal 34.0 - 46.0 % AO Workflow SS Hemoglobin (Bld) [Mass/Vol] 12.8 G/dL Normal 12.0 - 16.0 G/dL AO Workflow SS Lipase [Catalytic activity/Vol] 31 U/L Normal 16 - 77 U/L AO ADM SS Lymphocytes (Bld) [#/Vol] 2.0 103/mcL Normal 0.9 - 4.3 10^3/mcL AO Workflow SS Lymphocytes/100 WBC (Bld) 33.9 % Normal 20.0 - 40.0 % AO Workflow SS MCH (RBC) [Entitic mass] 29.7 pg Normal 27.0 - 33.0 pg AO Workflow SS MCHC 33.7 G/dL Normal 32.0 - 36.0 G/dL AO Workflow SS MCV (RBC) [Entitic vol] 88.1 fL Normal 80.0 - 99.0 fL AO Workflow SS Monocytes (Bld) [#/Vol] 0.5 103/mcL Normal 0.1 - 1.4 10^3/mcL AO Workflow SS Monocytes/100 WBC (Bld) 8.4 % Normal 2.0 - 13.0 % AO Workflow SS Neutrophils (Bld) [#/Vol] 3.0 103/mcL Normal 2.3 - 8.1 10^3/mcL AO Workflow SS Neutrophils/100 WBC (Bld) 50.9 % Normal 50.0 - 75.0 % AO Workflow SS Platelet mean volume (Bld) [Entitic vol] 8.4 fL Normal 6.6 - 10.5 fL AO Workflow SS Platelets (Bld) [#/Vol] 213 103/mcL Normal 150 - 450 10^3/mcL AO Workflow SS Potassium [Moles/Vol] 4.2 mmol/L Normal 3.5 - 5.1 mmol/L AO ADM SS Protein [Mass/Vol] 7.1 G/dL Normal 6.4 - 8.2 G/dL AO ADM SS RBC (Bld) [#/Vol] 4.31 106/mcL Normal 4.10 - 5.3 0 10^6/mcL AO Workflow SS Sodium [Moles/Vol] 141 mmol/L Normal 136 - 145 mmol/L AO ADM SS TSH Qn 1.13 m[IU]/L Normal 0.36 - 3.74 mcIU/mL AO ADM SS Urea nitrogen [Mass/Vol] 16 mg/dL Normal 7 - 18 mg/dL AO ADM SS Urea nitrogen/Creatinine [Mass ratio] 20 ratio Normal 7 - 27 ratio AO ADM SS WBC (Bld) [#/Vol] 5.8 103/mcL Normal 4.5 - 10.8 10^3/mcL AO Workflow SS LIPon 01-07-2025 Lipase Level 31 U/L Normal 16-77 [facility] Comment on above: Performed By: #### C BC, ADIFF, ANEU, CMP, GFR, TSHR, LIP #### [place] [address] TSHRon 01-07-2025 TSH Qn 1.13 m[IU]/L Normal 0.36-3.74 [facility] Comment on above: Performed By: #### C BC, ADIFF, ANEU, CMP, GFR, TSHR, LIP #### [place] [address] CELPNLon 03-09-2024 Deam Gliad IgA Abs 12 units Normal 0-19 [facility] Comment on above: Result Comment: Nega tive 0 - 19 Weak Positive 20 - 30 Moderate to Strong Positive >30 Performed By: #### 1 [id number] #### [place] [address] Deam Gliad IgG Abs 11 units Normal 0-19 [facility] Comment on above: Result Comment: Nega tive 0 - 19 Weak Positive 20 - 30 Moderate to Strong Positive >30 Performed By: #### 1 [id number] #### [place] [address] Endomysial IgA Ab Negative Normal Negative [facility] Comment on above: Performed By: #### 1 [id number] #### [place] [address] IgA [Mass/Vol] 206 mg/dL Normal 87-352 [facility] Comment on above: Result Comment: Perf ormed At: [facility] [address] [id number] Luis Manuel Brink PhD Ph:[phone] Performed By: #### 1 [id number] #### [place] [address] tTG IgA <2 Normal 0-3 [facility] Comment on above: Result Comment: Nega tive 0 - 3 Weak Positive 4 - 10 Positive >10 Tissue Transglutaminase (tTG) has been identified as the endomysial antigen. Studies have demonstr- ated that endomysial IgA antibodies have over 99% specificity for gluten sensitive enteropathy. Performed By: #### 1 [id number] #### [place] [address] tTG IgG 4 units/ml Normal 0-5 [facility] Comment on above: Result Comment: Nega tive 0 - 5 Weak Positive 6 - 9 Positive >9 Performed By: #### 1 [id number] #### [place] [address] .Auto Diffon 03-08-2024 Basophil, Absolute 0.0 10 3/mcL Normal 0.0-0.2 [facility] ([place]) Comment on above: Performed By: #### T SH, ANEU, CBC, VIDH, GFR, CMP, ADIFF, LIPID #### [place] [address] #### WAQAS #### [address] [address] Basophils/100 WBC (Bld) 0.7 % Normal 0.0-2.5 [facility] ([place]) Comment on above: Performed By: #### T SH, ANEU, CBC, VIDH, GFR, CMP, ADIFF, LIPID #### [place] [address] #### WAQAS #### [address] [address] Eosinophil, Absolute 0.1 10 3/mcL Normal 0.0-0.4 [facility] ([place]) Comment on above: Performed By: #### T SH, ANEU, CBC, VIDH, GFR, CMP, ADIFF, LIPID #### [place] [address] #### WAQAS #### [address] [address] Eosinophils/100 WBC (Bld) 2.5 % Normal 0.0-7.0 [facility] ([place]) Comment on above: Performed By: #### T SH, ANEU, CBC, VIDH, GFR, CMP, ADIFF, LIPID #### [place] [address] #### WAQAS #### [address] [address] Lymphocyte, Absolute 1.8 10 3/mcL Normal 0.8-3.9 [facility] ([place]) Comment on above: Performed By: #### T SH, ANEU, CBC, VIDH, GFR, CMP, ADIFF, LIPID #### [address] [address] #### WAQAS #### [address] [address] Lymphocytes/100 WBC (Bld) 29.7 % Normal 10.0-50.0 [facility] ([place]) Comment on above: Performed By: #### T SH, ANEU, CBC, VIDH, GFR, CMP, ADIFF, LIPID #### [address] [address] #### WAQAS #### [address] [address] Monocyte, Absolute 0.5 10 3/mcL Normal 0.2-1.0 [facility] ([place]) Comment on above: Performed By: #### T SH, ANEU, CBC, VIDH, GFR, CMP, ADIFF, LIPID #### [address] [address] #### WAQAS #### [address] [address] Monocytes/100 WBC (Bld) 7.6 % Normal 1.7-13.0 [facility] ([place]) Comment on above: Performed By: #### T SH, ANEU, CBC, VIDH, GFR, CMP, ADIFF, LIPID #### [address] [address] #### WAQAS #### [address] [address] Neutrophils/100 WBC (Bld) 59.5 % Normal 37.0-80.0 [facility] ([place]) Comment on above: Performed By: #### T SH, ANEU, CBC, VIDH, GFR, CMP, ADIFF, LIPID #### [address] [address] #### WAQAS #### [place] [address] .NEUABSon 03-08-2024 Neutrophil, Absolute 3.6 10 3/mcL Normal 2.9-6.2 [facility] ([place]) Comment on above: Performed By: #### T SH, ANEU, CBC, VIDH, GFR, CMP, ADIFF, LIPID #### [place] [address] #### WAQAS #### [place] [address] CBCon 03-08-2024 Erythrocyte distribution width (RBC) [Ratio] 13.0 % Normal 11.5-14.5 [facility] ([place]) Comment on above: Performed By: #### T SH, ANEU, CBC, VIDH, GFR, CMP, ADIFF, LIPID #### [place] [address] #### WAQAS #### [place] [address] Hematocrit (Bld) [Volume fraction] 40.0 % Normal 37.0-47.0 [facility] ([place]) Comment on above: Performed By: #### T SH, ANEU, CBC, VIDH, GFR, CMP, ADIFF, LIPID #### [place] [address] #### WAQAS #### [place] [address] Hgb 13.6 G/dL Normal 12.0-16.0 [facility] ([place]) Comment on above: Performed By: #### T SH, ANEU, CBC, VIDH, GFR, CMP, ADIFF, LIPID #### [place] [address] #### WAQAS #### [place] [address] MCH (RBC) [Entitic mass] 31.1 pg Normal 27.0-31.2 [facility] ([place]) Comment on above: Performed By: #### T SH, ANEU, CBC, VIDH, GFR, CMP, ADIFF, LIPID #### [place] [address] #### WAQAS #### [place] [address] MCHC 34.1 G/dL Normal 33.0-37.0 [facility] ([place]) Comment on above: Performed By: #### T SH, ANEU, CBC, VIDH, GFR, CMP, ADIFF, LIPID #### [place] [address] #### WAQAS #### [place] [address] MCV (RBC) [Entitic vol] 91.3 fL Normal 80.0-94.0 [facility] ([place]) Comment on above: Performed By: #### T SH, ANEU, CBC, VIDH, GFR, CMP, ADIFF, LIPID #### [place] [address] #### WAQAS #### [place] [address] Platelet 240 10 3/mcL Normal 130-400 [facility] ([place]) Comment on above: Performed By: #### T SH, ANEU, CBC, VIDH, GFR, CMP, ADIFF, LIPID #### [place] [address] #### WAQAS #### [place] [address] Platelet mean volume (Bld) [Entitic vol] 8.6 fL Normal 7.4-10.4 [facility] ([place]) Comment on above: Performed By: #### T SH, ANEU, CBC, VIDH, GFR, CMP, ADIFF, LIPID #### [place] [address] #### WAQAS #### [place] [address] RBC 4.38 10 6/mcL Normal 4.20-5.40 [facility] ([place]) Comment on above: Performed By: #### T SH, ANEU, CBC, VIDH, GFR, CMP, ADIFF, LIPID #### [address] [address] #### WAQAS #### [address] [address] WBC 6.0 10 3/mcL Normal 4.6-10.8 [facility] ([place]) Comment on above: Performed By: #### T SH, ANEU, CBC, VIDH, GFR, CMP, ADIFF, LIPID #### [address] [address] #### WAQAS #### [address] [address] LABORATORYOrdered By: SYSTEM SYSTEM on 03-08-2024 Basophils (Bld) [#/Vol] 0.0 103/mcL Normal 0.0 - 0.2 10^3/mcL AO Workflow SS Basophils/100 WBC (Bld) 0.7 % Normal 0.0 - 2.5 % AO Workflow SS Eosinophil, Absolute 0.1 103/mcL Normal 0.0 - 0 .4 10^3/mcL AO Workflow SS Eosinophils/100 WBC (Bld) 2.5 % Normal 0.0 - 7.0 % AO Workflow SS Erythrocyte distribution width (RBC) [Ratio] 13.0 % Normal 11.5 - 14.5 % AO Workflow SS Hematocrit (Bld) [Volume fraction] 40.0 % Normal 37.0 - 47.0 % AO Workflow SS Hemoglobin (Bld) [Mass/Vol] 13.6 G/dL Normal 12.0 - 16.0 G/dL AO Workflow SS Lymphocytes (Bld) [#/Vol] 1.8 103/mcL Normal 0.8 - 3.9 10^3/mcL AO Workflow SS Lymphocytes/100 WBC (Bld) 29.7 % Normal 10.0 - 50.0 % AO Workflow SS MCH (RBC) [Entitic mass] 31.1 pg Normal 27.0 - 31.2 pg AO Workflow SS MCHC 34.1 G/dL Normal 33.0 - 37.0 G/dL AO Workflow SS MCV (RBC) [Entitic vol] 91.3 fL Normal 80.0 - 94.0 fL AO Workflow SS Monocytes (Bld) [#/Vol] 0.5 103/mcL Normal 0.2 - 1.0 10^3/mcL AO Workflow SS Monocytes/100 WBC (Bld) 7.6 % Normal 1.7 - 13.0 % AO Workflow SS Neutrophils (Bld) [#/Vol] 3.6 103/mcL Normal 2.9 - 6.2 10^3/mcL AO Workflow SS Neutrophils/100 WBC (Bld) 59.5 % Normal 37.0 - 80.0 % AO Workflow SS Platelet mean volume (Bld) [Entitic vol] 8.6 fL Normal 7.4 - 10.4 fL AO Workflow SS Platelets (Bld) [#/Vol] 240 103/mcL Normal 130 - 400 10^3/mcL AO Workflow SS RBC (Bld) [#/Vol] 4.38 106/mcL Normal 4.20 - 5.4 0 10^6/mcL AO Workflow SS TSH Qn 1.33 m[IU]/L Normal 0.36 - 3.74 mcIU/mL AO ADM SS WBC (Bld) [#/Vol] 6.0 103/mcL Normal 4.6 - 10.8 10^3/mcL AO Workflow SS TSHon 03-08-2024 TSH Qn 1.33 m[IU]/L Normal 0.36-3.74 [facility] Comment on above: Performed By: #### T SH #### [address] [address] No Panel Informationon 10-23 Culture Urine >100,000 cfu/ml Multiple bacterial morphotypes present. Probable Contamination. Suggest recollection if clinically indicated. [facility] .Auto Diffon 08-12-2023 Basophil, Absolute 0.0 10 3/mcL Normal 0.0-0.2 [facility] ([place]) Comment on above: Performed By: #### T SH, ANEU, CBC, VIDH, GFR, CMP, ADIFF, LIPID #### [place] [id number] [place], [place] [address] #### WAQAS #### [facility] [address] [place] [address] Basophils/100 WBC (Bld) 0.8 % Normal 0.0-2.5 [facility] ([place]) Comment on above: Performed By: #### T SH, ANEU, CBC, VIDH, GFR, CMP, ADIFF, LIPID #### [address] [address] #### WAQAS #### [address] [address] Eosinophil, Absolute 0.2 10 3/mcL Normal 0.0-0.4 [facility] ([place]) Comment on above: Performed By: #### T SH, ANEU, CBC, VIDH, GFR, CMP, ADIFF, LIPID #### [address] [address] #### WAQAS #### [address] [address] Eosinophils/100 WBC (Bld) 2.8 % Normal 0.0-7.0 [facility] ([place]) Comment on above: Performed By: #### T SH, ANEU, CBC, VIDH, GFR, CMP, ADIFF, LIPID #### [address] [address] #### WAQAS #### [address] [address] Lymphocyte, Absolute 1.8 10 3/mcL Normal 0.8-3.9 [facility] ([place]) Comment on above: Performed By: #### T SH, ANEU, CBC, VIDH, GFR, CMP, ADIFF, LIPID #### [address] [address] #### WAQAS #### [address] [address] Lymphocytes/100 WBC (Bld) 31.6 % Normal 10.0-50.0 [facility] ([place]) Comment on above: Performed By: #### T SH, ANEU, CBC, VIDH, GFR, CMP, ADIFF, LIPID #### [address] [address] #### WAQAS #### [address] [address] Monocyte, Absolute 0.5 10 3/mcL Normal 0.2-1.0 [facility] ([place]) Comment on above: Performed By: #### T SH, ANEU, CBC, VIDH, GFR, CMP, ADIFF, LIPID #### [address] [address] #### WAQAS #### [address] [address] Monocytes/100 WBC (Bld) 7.9 % Normal 1.7-13.0 [facility] ([place]) Comment on above: Performed By: #### T SH, ANEU, CBC, VIDH, GFR, CMP, ADIFF, LIPID #### [address] [address] #### WAQAS #### [address] [address] Neutrophils/100 WBC (Bld) 56.9 % Normal 37.0-80.0 [facility] ([place]) Comment on above: Performed By: #### T SH, ANEU, CBC, VIDH, GFR, CMP, ADIFF, LIPID #### [address] [address] #### WAQAS #### [address] [address] .GFRon 08-12-2023 GFR 94 ml/min/1.73sqm Normal [facility] ([place]) Comment on above: Result Comment: GFR Population mean for , Non- Americans Ages 20-29 = 116 mL/min/1.73 sq.m. Ages 30-39 = 107 mL/min/1.73 sq.m. Ages 40-49 = 99 mL/min/1.73 sq.m. Ages 50-59 = 93 mL/min/1.73 sq.m. Ages 60-69 = 85 mL/min/1.73 sq.m. Ages 70+ = 75 mL/min/1.73 sq.m. Chronic Kidney Disease: Less than 60 mL/min/1.73 square meters End Stage Renal Disease: Less than 15 mL/min/1.73 square meters Performed By: #### T SH, ANEU, CBC, VIDH, GFR, CMP, ADIFF, LIPID #### [address] [address] #### WAQAS #### [address] [address] GFR Non- 78 ml/min/1.73sqm Normal [facility] ([place]) Comment on above: Result Comment: GFR Population mean for , Non- Americans Ages 20-29 = 116 mL/min/1.73 sq.m. Ages 30-39 = 107 mL/min/1.73 sq.m. Ages 40-49 = 99 mL/min/1.73 sq.m. Ages 50-59 = 93 mL/min/1.73 sq.m. Ages 60-69 = 85 mL/min/1.73 sq.m. Ages 70+ = 75 mL/min/1.73 sq.m. Chronic Kidney Disease: Less than 60 mL/min/1.73 square meters End Stage Renal Disease: Less than 15 mL/min/1.73 square meters Performed By: #### T SH, ANEU, CBC, VIDH, GFR, CMP, ADIFF, LIPID #### [place] [address] #### WAQAS #### [address] [address] .NEUABSon 08-12-2023 Neutrophil, Absolute 3.3 10 3/mcL Normal 2.9-6.2 [facility] ([place]) Comment on above: Performed By: #### T SH, ANEU, CBC, VIDH, GFR, CMP, ADIFF, LIPID #### [place] [address] #### WAQAS #### [address] [address] CBCon 08-12-2023 Erythrocyte distribution width (RBC) [Ratio] 13.2 % Normal 11.5-14.5 [facility] ([place]) Comment on above: Performed By: #### T SH, ANEU, CBC, VIDH, GFR, CMP, ADIFF, LIPID #### [place] [address] #### WAQAS #### [address] [address] Hematocrit (Bld) [Volume fraction] 37.6 % Normal 37.0-47.0 [facility] ([place]) Comment on above: Performed By: #### T SH, ANEU, CBC, VIDH, GFR, CMP, ADIFF, LIPID #### [place] [address] #### WAQAS #### [place] [address] Hgb 12.9 G/dL Normal 12.0-16.0 [facility] ([place]) Comment on above: Performed By: #### T SH, ANEU, CBC, VIDH, GFR, CMP, ADIFF, LIPID #### [place] [address] #### WAQAS #### [place] [address] MCH (RBC) [Entitic mass] 30.8 pg Normal 27.0-31.2 [facility] ([place]) Comment on above: Performed By: #### T SH, ANEU, CBC, VIDH, GFR, CMP, ADIFF, LIPID #### [place] [address] #### WAQAS #### [place] [address] MCHC 34.4 G/dL Normal 33.0-37.0 [facility] ([place]) Comment on above: Performed By: #### T SH, ANEU, CBC, VIDH, GFR, CMP, ADIFF, LIPID #### [place] [address] #### WAQAS #### [place] [address] MCV (RBC) [Entitic vol] 89.6 fL Normal 80.0-94.0 [facility] ([place]) Comment on above: Performed By: #### T SH, ANEU, CBC, VIDH, GFR, CMP, ADIFF, LIPID #### [place] [address] #### WAQAS #### [place] [address] Platelet 235 10 3/mcL Normal 130-400 [facility] ([place]) Comment on above: Performed By: #### T SH, ANEU, CBC, VIDH, GFR, CMP, ADIFF, LIPID #### [address] [address] #### WAQAS #### [place] [address] Platelet mean volume (Bld) [Entitic vol] 8.5 fL Normal 7.4-10.4 [facility] ([place]) Comment on above: Performed By: #### T SH, ANEU, CBC, VIDH, GFR, CMP, ADIFF, LIPID #### [place] [address] #### WAQAS #### [place] [address] RBC 4.20 10 6/mcL Normal 4.20-5.40 [facility] ([place]) Comment on above: Performed By: #### T SH, ANEU, CBC, VIDH, GFR, CMP, ADIFF, LIPID #### [place] [address] #### WAQAS #### [place] [address] WBC 5.8 10 3/mcL Normal 4.6-10.8 [facility] ([place]) Comment on above: Performed By: #### T SH, ANEU, CBC, VIDH, GFR, CMP, ADIFF, LIPID #### [place] [address] #### WAQAS #### [place] [address] CMPon 08-12-2023 Albumin Level 3.9 G/dL Normal 3.5-5.0 [facility] ([place]) Comment on above: Performed By: #### T SH, ANEU, CBC, VIDH, GFR, CMP, ADIFF, LIPID #### [place] [address] #### WAQAS #### [place] [address] Albumin/Globulin [Mass ratio] 1.3 {ratio} Normal 1.1-2.5 [facility] ([place]) Comment on above: Performed By: #### T SH, ANEU, CBC, VIDH, GFR, CMP, ADIFF, LIPID #### [place] [address] #### WAQAS #### [place] [address] ALP [Catalytic activity/Vol] 64 U/L Normal 40-135 [facility] ([place]) Comment on above: Performed By: #### T SH, ANEU, CBC, VIDH, GFR, CMP, ADIFF, LIPID #### [place] [address] #### WAQAS #### [place] [address] ALT [Catalytic activity/Vol] 26 U/L Normal 14-59 [facility] ([place]) Comment on above: Performed By: #### T SH, ANEU, CBC, VIDH, GFR, CMP, ADIFF, LIPID #### [place] [address] #### WAQAS #### [place] [address] AST [Catalytic activity/Vol] 16 U/L Normal 10-40 [facility] ([place]) Comment on above: Performed By: #### T SH, ANEU, CBC, VIDH, GFR, CMP, ADIFF, LIPID #### [place] [address] #### WAQAS #### [place] [address] Bili Total 0.3 mg/dL Normal 0.2-1.0 [facility] ([place]) Comment on above: Result Comment: Use of this assay is not recommended for patients undergoing treatment with eltrombopag due to the potential for falsely elevated results. Performed By: #### T SH, ANEU, CBC, VIDH, GFR, CMP, ADIFF, LIPID #### [place] [address] #### WAQAS #### [address] [address] BUN/Creatinine Ratio 23 ratio Normal 7-27 [facility] ([place]) Comment on above: Performed By: #### T SH, ANEU, CBC, VIDH, GFR, CMP, ADIFF, LIPID #### [address] [address] #### WAQAS #### [address] [address] Calcium [Mass/Vol] 9.0 mg/dL Normal 8.4-10.2 [facility] ([place]) Comment on above: Performed By: #### T SH, ANEU, CBC, VIDH, GFR, CMP, ADIFF, LIPID #### [address] [address] #### WAQAS #### [address] [address] Chloride [Moles/Vol] 105 mmol/L Normal 98-107 [facility] ([place]) Comment on above: Performed By: #### T SH, ANEU, CBC, VIDH, GFR, CMP, ADIFF, LIPID #### [address] [address] #### WAQAS #### [address] [address] CO2 [Moles/Vol] 26 mmol/L Normal 22-29 [facility] ([place]) Comment on above: Performed By: #### T SH, ANEU, CBC, VIDH, GFR, CMP, ADIFF, LIPID #### [address] [address] #### WAQAS #### [address] [address] Creatinine [Mass/Vol] 0.82 mg/dL Normal 0.55-1.02 [facility] ([place]) Comment on above: Performed By: #### T SH, ANEU, CBC, VIDH, GFR, CMP, ADIFF, LIPID #### [address] [address] #### WAQAS #### [address] [address] Electrolyte Balance 10.0 mEq/L Normal 4.0-15.0 [facility] ([place]) Comment on above: Performed By: #### T SH, ANEU, CBC, VIDH, GFR, CMP, ADIFF, LIPID #### [address] [address] #### WAQAS #### [address] [address] Globulin 3.0 G/dL Normal [facility] ([place]) Comment on above: Performed By: #### T SH, ANEU, CBC, VIDH, GFR, CMP, ADIFF, LIPID #### [address] [address] #### WAQAS #### [address] [address] Glucose [Mass/Vol] 91 mg/dL Normal 70-105 [facility] ([place]) Comment on above: Performed By: #### T SH, ANEU, CBC, VIDH, GFR, CMP, ADIFF, LIPID #### [address] [address] #### WAQAS #### [address] [address] Potassium [Moles/Vol] 4.5 mmol/L Normal 3.5-5.1 [facility] ([place]) Comment on above: Performed By: #### T SH, ANEU, CBC, VIDH, GFR, CMP, ADIFF, LIPID #### [address] [address] #### WAQAS #### [address] [address] Sodium [Moles/Vol] 141 mmol/L Normal 136-145 [facility] ([place]) Comment on above: Performed By: #### T SH, ANEU, CBC, VIDH, GFR, CMP, ADIFF, LIPID #### [address] [address] #### WAQAS #### [address] [address] Total Protein 6.9 G/dL Normal 6.4-8.2 [facility] ([place]) Comment on above: Performed By: #### T SH, ANEU, CBC, VIDH, GFR, CMP, ADIFF, LIPID #### [address] [address] #### WAQAS #### [address] [address] Urea nitrogen [Mass/Vol] 19 mg/dL High 7-18 [facility] ([place]) Comment on above: Performed By: #### T SH, ANEU, CBC, VIDH, GFR, CMP, ADIFF, LIPID #### [address] [address] #### WAQAS #### [address] [address] CORTon 08-12-2023 Cortisol Level 13.0 mcg/dL Normal [facility] ([place]) Comment on above: Result Comment: Waqas isol AM Reference Range 6.5-26.0 mcg/dL Cortisol PM Reference Range 3.5-15.0 mcg/dL Performed By: #### T SH, ANEU, CBC, VIDH, GFR, CMP, ADIFF, LIPID #### [address] [address] #### WAQAS #### [address] [address] LIPIDon 08-12-2023 Cholesterol [Mass/Vol] 199 mg/dL Normal 0-200 [facility] ([place]) Comment on above: Result Comment: Chol esterol Reference Interval: Less than 200 Desirable 200-239 Borderline high risk 240 and above High risk Performed By: #### T SH, ANEU, CBC, VIDH, GFR, CMP, ADIFF, LIPID #### [address] [address] #### WAQAS #### [address] [address] Cholesterol in HDL [Mass/Vol] 79 mg/dL High 40-60 [facility] ([place]) Comment on above: Performed By: #### T SH, ANEU, CBC, VIDH, GFR, CMP, ADIFF, LIPID #### [address] [address] #### WAQAS #### [address] [address] Cholesterol in LDL [Mass/Vol] 109 mg/dL Normal 0-130 [facility] ([place]) Comment on above: Performed By: #### T SH, ANEU, CBC, VIDH, GFR, CMP, ADIFF, LIPID #### [place] [address] #### WAQAS #### [place] [address] Triglyceride [Mass/Vol] 53 mg/dL Normal 0-150 [facility] ([place]) Comment on above: Result Comment: Trig lyceride Reference Interval: Less than 150 Normal 150-199 Borderline high risk 200-499 High risk 500 or higher Very high risk Performed By: #### T SH, ANEU, CBC, VIDH, GFR, CMP, ADIFF, LIPID #### [place] [id number] #### WAQAS #### [place] [address] TSHon 08-12-2023 TSH Qn 0.64 m[IU]/L Normal 0.36-3.74 [facility] ([place]) Comment on above: Performed By: #### T SH, ANEU, CBC, VIDH, GFR, CMP, ADIFF, LIPID #### [place] [id number] #### WAQAS #### [place] [address] VIDHon 08-12-2023 Vit. D 25-Hydroxy 30.7 ng/mL Normal [facility] ([place]) Comment on above: Result Comment: Inte rpretive Values Based on Total 25(OH) Vitamin D: Deficient <20 ng/mL Insufficient 20 - <30 ng/mL Sufficient 30-100 ng/mL Performed By: #### T SH, ANEU, CBC, VIDH, GFR, CMP, ADIFF, LIPID #### [address] [place], [place] [address] #### WAQAS #### [facility] [address] [place] [id number] LABORATORYOrdered By: SYSTEM SYSTEM on 02-16-2023 Follitropin Qn 5.0 m[IU]/mL Invalid Interpretation Code AH ADM SS Comment on above: Interpretive Data: A dult Female FSH Reference Ranges (05/27/99): Follicular phase 2.5 - 10.2 mIU/mL Midcycle phase 3.4 - 33.4 mIU/mL Luteal phase 1.5 - 9.1 mIU/mL Post menopausal 23.0 -116.3 mIU/mL Adult Male: 1.4 - 18.1 mIU/mL No Panel InformationOrdered By: Rosy Garcia on 02-16-2023 Affirm Pathogens DNA Direct Probe Gardnerella vaginalis DNA Probe Negative Trichomonas vaginalis DNA Probe Negative Velvet species DNA Probe Negative [facility] Sinus/Facial Boneon 10-24-19 Sinus/Facial [facility] Imaging Services [address] [place] [id number] Sinus/Facial Bone MR#: [id number] Acct: [id number] Name: KONG COURTNEY Rep #: [id number] : 1985 F 36 From: Loy Santillan MD PCP: SHAISTA Wagoner Status: REG CLI Study: Sinus/Facial Bone Date of Exam: 10/23/22 Exam# [id number] Ordering Dr: Cleveland Germain MD STUDY: CT MAXILLOFACIAL SINUSES REASON FOR EXAM: Female, 36 years old. SINUSITIS RADIATION DOSAGE (If Supplied By Facility): CTDIvol = ( 33.06 ) mGy, DLP = ( 742.94 ) mGycm TECHNIQUE: The patient was scanned in a multi detector CT scanner. High resolution axial imaging was performed without the administration of intravenous contrast material. Sagittal and coronal images were reconstructed. Individualized dose optimization techniques were used for this CT. COMPARISON: None. FINDINGS: FRONTAL SINUSES: Normal aeration, without mucosal inflammatory disease. ETHMOIDAL SINUSES: Normal aeration, without mucosal inflammatory disease. MAXILLARY SINUSES: Mucous retention cysts/polyps in the maxillary sinus bases SPHENOIDAL SINUSES: Normal aeration, without mucosal inflammatory disease. There is patency of the bilateral maxillary infundibuli with normal uncinate processes, ethmoid bullae, and hiatus semilunaris. Normal bilateral middle turbinates. Normal bilateral inferior turbinates. Normal midline nasal septum. There is patency of the bilateral nasal airways. The visualized osseous structures are normal. The visualized bilateral orbital contents are normal. CT/Sinus/Facial Bone IMPRESSION: Mucous retention cysts/polyps in the bases of both maxillary sinuses. Ostiomeatal complexes are widely patent No demonstrated fracture or suspicious osseous lesion Electronically Signed: Donovan Santillan MD at 13:56 EDT , CC: SHAISTA Riddle; Dr. Cleveland Germain MD Teletypesetter Operator: Signed [facility] LABORATORYOrdered By: Selin Feliz on 09-21-2022 Basophil, Absolute 0.0 103/mcL Invalid Interpretation Code 0.0 - 0.2 10^3/mcL AO Workflow SS Basophils/100 WBC (Bld) 0.6 % Invalid Interpretation Code 0.0 - 2.5 % AO Workflow SS Eosinophil, Absolute 0.1 103/mcL Invalid Interpretation Code 0.0 - 0.4 10^3/mcL AO Workflow SS Eosinophils/100 WBC (Bld) 2.0 % Invalid Interpretation Code 0.0 - 7.0 % AO Workflow SS Erythrocyte distribution width (RBC) [Ratio] 13.1 % Invalid Interpretation Code 11.5 - 14.5 % AO Workflow SS Hematocrit (Bld) [Volume fraction] 40.0 % Invalid Interpretation Code 37.0 - 47.0 % AO Workflow SS Hemoglobin (Bld) [Mass/Vol] 13.6 G/dL Invalid Interpretation Code 12.0 - 16.0 G/dL AO Workflow SS Lymphocyte, Absolute 1.2 103/mcL Invalid Interpretation Code 0.8 - 3.9 10^3/mcL AO Workflow SS Lymphocytes/100 WBC (Bld) 19.8 % Invalid Interpretation Code 10.0 - 50.0 % AO Workflow SS MCH (RBC) [Entitic mass] 30.2 pg Invalid Interpretation Code 27.0 - 31.2 pg AO Workflow SS MCHC 34.2 G/dL Invalid Interpretation Code 33.0 - 37.0 G/dL AO Workflow SS MCV (RBC) [Entitic vol] 88.6 fL Invalid Interpretation Code 80.0 - 94.0 fL AO Workflow SS Monocyte, Absolute 0.5 103/mcL Invalid Interpretation Code 0.2 - 1.0 10^3/mcL AO Workflow SS Monocytes/100 WBC (Bld) 8.3 % Invalid Interpretation Code 1.7 - 13.0 % AO Workflow SS Neutrophil, Absolute 4.1 103/mcL Invalid Interpretation Code 2.9 - 6.2 10^3/mcL AO Workflow SS Neutrophils/100 WBC (Bld) 69.3 % Invalid Interpretation Code 37.0 - 80.0 % AO Workflow SS Platelet mean volume (Bld) [Entitic vol] 8.4 fL Invalid Interpretation Code 7.4 - 10.4 fL AO Workflow SS Platelets (Bld) [#/Vol] 247 103/mcL Invalid Interpretation Code 130 - 400 10^3/mcL AO Workflow SS RBC (Bld) [#/Vol] 4.51 106/mcL Invalid Interpretation Code 4.20 - 5.40 10^6/mcL AO Workflow SS WBC (Bld) [#/Vol] 5.9 103/mcL Invalid Interpretation Code 4.6 - 10.8 10^3/mcL AO Workflow SS LABORATORYOrdered By: SYSTEM SYSTEM on 09-21-2022 Free T3 [Mass/Vol] 2.97 pg/mL Invalid Interpretation Code 2.30 - 4.00 pg/mL AO ADM SS Free T4 [Mass/Vol] 0.92 ng/dL Invalid Interpretation Code 0.76 - 1.46 ng/dL AO ADM SS TSH Qn 0.77 m[IU]/L Invalid Interpretation Code 0.36 - 3.74 mcIU/mL AO ADM SS No Panel Informationon 09-06 Culture Urine 50,000 - 100,000 cfu/ml Multiple bacterial morphotypes present. Probable Contamination. Suggest recollection if clinically indicated. [facility] Decalcification bone/plaqueo n 05-10-2022 Decalcification bone/plaque Patient Age/Sex Location Account Attending Physician KONG OCURTNEY 36/F [facility] [id number] Dr. Dev Mesa MD Specimen: [id number] Received: 05/10/22 Status: JELLY Garcia Num: [id number] Spec Type: TURBINATES Subm Dr: Dr. Dev Mesa MD HEADER OPERATION: Septoplasty, partial resection inferior turbinates PRE-OP DIAGNOSIS: Nasal congestion, hypertrophy nasal turbinates, deviated nasal septum TISSUE SUBMITTED: Bone, cartilage, turbinates MICROSCOPIC DIAGNOSIS Bone, cartilage and turbinate: Fragments of benign respiratory mucosa, blood and mucus. A fragment of benign squamous epithelium. A fragment of cartilage, clinically deviated nasal septum. SJ:isaac 05/13/2022 MICROSCOPIC DESCRIPTION Slides are reviewed. GROSS DESCRIPTION Received in fixative is one container labeled with the patient's name and designated bone and cartilage, turbinates. The specimen consists of multiple irregular fragments of pink-daily soft tissue that in aggregate measure 2.5 x 2 x 0.2 cm. Also present in the specimen container is an irregular fragment of daily-white gritty tissue measuring 1 x 0.2 x 0.2 cm. The specimen is totally submitted in two cassettes as follows: 1?soft tissue, 2 - gritty tissue after decalcification. / AM:isaac 05/10/2022 TC:5 CPT: 02802, 93522 Patient Age/Sex Location Account Attending Physician KONG COURNTEY 36/F [facility] [id number] Dr. Dev Mesa MD Signed (signature on file) Dr. Torrey Rush MD 05/13/22 1147 Normal [facility] Comment on above: Performed By: #### P DEC #### [facility] [address] [facility] [place], [address] Operative Reporton 2 Operative Report [facility] Medical Records Department [address] [place] [address] Operative Report 05/10/22 1040 MR#: [id number] Acct: [id number] Name: KONG COURTNEY Rep #: [id number] : 1985 36 From: Dev Mesa MD PCP: Care Physician,No Primary Status:[facility] Location: [place] [address] Report of Operation Date of Procedure: 05/10/22 Pre-Operative Diagnosis: nasal airway obstruction; deviated septum; inferior turbinate hypertophy Post-Operative Diagnosis: same Surgery/Procedure Performed:: septoplasty bilateral submucous resection inferior turbinates Surgeon: Dev Mesa Type of Anesthesia: General Anesthesiologist: Clifford Gaston Estimated Blood Loss (mL): minimal Description of Procedure: The patient was taken to the operating room on 05/10/2022. He was placed in supine position on the operating table. He was given sufficient general endotracheal anesthesia. The table was elevated 30 degrees. The nose was draped sterilely. 2% lidocaine with epinephrine was injected into the septum nasal floor anterior aspect of the inferior turbinates bilaterally. Nasal hair was trimmed with the scissors and removed. A right hemitransfixion incision was made with a 15 blade. The mucoperichondrium was elevated off of the left-hand side of the septum with a [place] elevator. Dissection was carried back until no cartilage was visualized about midway back. She had clearly had cartilage removed from a previous surgery. I the quadrangular cartilage from the maxillary crest. I then removed deviated portions of the quadrangular cartilage inferiorly. I then scored the remaining cartilage with a 15 blade. Hemostasis was achieved with Afrin pledgets. Next, an incision was placed anterior aspect of the right inferior turbinate at the mucocutaneous junction. A submucous plane established with a caudal elevator. Submucous resection was carried out using a microdebrider where bone and tissue was removed. Afrin pledgets were used for hemostasis. The incision was then closed with 4-0 chromic. Then, an incision was placed at the anterior aspect of the left inferior turbinate at the mucocutaneous junction. A submucous plane established using a caudal elevator. Submucous resection was carried out using a microdebrider where bone and tissue were removed. The incision was then closed with 4-0 chromic. Afrin and Maritza were used for hemostasis. The hemitransfixion incision was closed with 4-0 chromic. Franco nasal splints were applied to each side of the septum and sewn through and through with 3-0 silk. The patient was then awoken and brought to the recovery room in stable condition. Blood loss minimal, replacement none. Sponge, needle count, sponge count, were correct at the end of this procedure. 05/10/22 1044 Cosigner Signature (if applicable): CC: Dr. Dev Mesa MD; No Primary Care Physician Signed Normal [facility] Thyroid Peroxidase ABon 04-2 THYR PEROX AB < 8 Normal 0-34 [facility] Comment on above: Result Comment: Perf ormed at: CB - [facility] [address] [id number] Loader Technician: Cuba Issa PhD, Phone: [phone] Performed By: #### L 345.5404, K706.5766, D2923.6956 #### [facility] [address] [place], [address] Endocrinology Visit Reporton 10-26-2021 Endocrinology Visit Report [facility] 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 Conrad Jenkins MD) Anemia Asthma Carpal tunnel syndrome Carpal tunnel syndrome Cholecystectomy planned Gallstone Gastrointestinal problem GERD (gastroesophageal reflux disease) H/O emotional problems Headache Leaky heart valve Nodular goiter Pneumonia Tonsillectomy planned UTI (urinary tract infection) Weight gain Surgical History H/O rhinoplasty H/O total hysterectomy Previous section Family History Other Alcohol abuse Anxiety Depression Hypertension Social History Smoking Status: Former smoker alcohol intake: current alcohol intake frequency: holidays/special occasions only substance use type: does not use HPI HPI Details: KONG COURTNEY, is a 35 F who presents to the office today for evaluation and management of nodular goiter. The patient presented in the summer of 2020 with an enlarged thyroid. Thyroid ultrasound was done: RIGHT: 57 x 16 x 16 mm NODULE 1: right lower lobe 13 x 9 x 8 mm exophytic points TR5 LEFT: 48 x 14 x 16 mm NODULE 2: Left mid 10 x 9 x 6 mm TR3 Several other subcm, nonsuspicious nodules. She had FNA performed and cytology was benign nodule. TSH Nov, 2020 - 0.84 She is here today because she has gained weight and she is wondering if it is from her thyroid. Exam Const General: cooperative, healthy appearing, comfortable, no acute distress, well developed and not cushingoid Nutritional Appearance: well nourished Orientation: alert, awake and oriented x3 HENMT Head: normal to inspection Ears: hearing grossly normal bilaterally Nose: external nose normal Mouth: oral mucosae normal Eyes General: appearance normal, both eyes and all related structures Alignment and Position: alignment normal Periorbital: periorbital findings normal Eyelids: eyelids normal Conjunctivae: conjunctivae normal Neck Neck: normal visual inspection Neck mass: No Thyroid: diffusely enlarged Carotids: no bruits Lymphatic: no lymphadenopathy noted Chest Chest palpation inspection: normal inspection of the chest Resp Effort Inspection: normal respiratory effort, able to speak in complete sentences, symmetric chest movement, no audible wheezes and no cough Auscultation: Bilateral: Clear to Auscultation Cardio Rate: regular rate Rhythm: regular rhythm GI Inspection: normal to inspection Palpation: soft Skin General: no rashes or lesions noted Neuro General: patient alert, patient awake and patient oriented x3 Cranial Nerves: CN's II-XI intact bilaterally Cognition: normal cognition Speech: speech normal Gait: normal gait Motor: muscle tone normal throughout Extrem General: no edema Psych Appearance: grossly normal Mental Status: mental status grossly normal Mood: congruent mood Affect: normal affect Speech and Movement: speech and movement normal Attitude: cooperative Thought Process: normal Thought Content: normal Judgment: judgment good Coding Level of Care Code Off vis,new,level 4 Diagnoses Nodular goiter E04.9 Weight gain R63.5 Assessment and Plan Assessment and Plan (1) Nodular goiter: Status: Acute Orders: Orders: T4 Free Direct Today Thyroid Stim Hormone (TSH) Today Thyroid Peroxidase AB Today Plan - Dr. Conrad Jenkins MD: Recheck labs today. I suggest repeating ultrasound to check for growth in nodule 1 and stability of nodule 2. She wants to do this in [facility] through PCP, I will interpret. Check thyroid antibodies. Check yearly TSH. (2) Weight gain: Status: Acute Plan - Dr. Conrad Jenkins MD: WEight is unlikely to be related to her thyroid condition. I suggested reading Bright Line Eating by Joyce Alvares for information regarding food choices with low glycemic index and for w (more content not included)... Normal [facility] - Chemistry and C hemistry - challengeon 10-26-2021 Free T4 [Mass/Vol] 1.04 ng/dL 0.76-1.46 [facility] Work Phone: No Panel Informationon 10-26 Thyroid Stimulating Hormone (TSH) 1.01 uIU/mL 0.358-3.74 [facility] Work Phone: Serum or plasma thyroperoxid ase antibody assay (units/volume)on 10-26-2021 TPO Ab Qn [IU]/mL [facility] Work Phone: Comment on above: Performed at: [address] [id number] Director: Cuba Issa PhD, Phone: [phone] T4 Free Directon 10-26-2021 T4 FREE DIRECT 1.04 ng/dL Normal 0.76-1.46 [facility] Comment on above: Performed By: #### L 506.0400, L501.9520, L3621.8150 #### [facility] [address] [facility] [place], [address] Thyroid Stim Hormone (TSH)on 10-26-2021 TSH 1.01 uIU/mL Normal 0.358-3.74 [facility] Comment on above: Performed By: #### L 506.0400, L501.9520, L3300.6900 #### [facility] [address] [facility] [place], [address] LABORATORYOrdered By: Michelle Brown on 06-02-2021 Basophil, Absolute 0.10 103/mcL Invalid Interpretation Code 0.00 - 0.19 10^3/mcL AO Auto Heme SS Basophils/100 WBC (Bld) 0.9 % Invalid Interpretation Code 0.0 - 2.5 % AO Auto Heme SS Eosinophil, Absolute 0.60 103/mcL Invalid Interpretation Code 0.00 - 0.40 10^3/mcL AO Auto Heme SS Eosinophils/100 WBC (Bld) 8.3 % Invalid Interpretation Code 0.0 - 7.0 % AO Auto Heme SS Erythrocyte distribution width (RBC) [Ratio] 12.9 % Invalid Interpretation Code 11.5 - 14.5 % AO Auto Heme SS Hematocrit (Bld) [Volume fraction] 37.5 % Invalid Interpretation Code 37.0 - 47.0 % AO Auto Heme SS Hemoglobin (Bld) [Mass/Vol] 12.9 G/dL Invalid Interpretation Code 12.0 - 16.0 G/dL AO Auto Heme SS Lymphocyte, Absolute 1.70 103/mcL Invalid Interpretation Code 0.77 - 3.85 10^3/mcL AO Auto Heme SS Lymphocytes/100 WBC (Bld) 24.6 % Invalid Interpretation Code 10.0 - 50.0 % AO Auto Heme SS MCH (RBC) [Entitic mass] 30.7 pg Invalid Interpretation Code 27.0 - 31.2 pg AO Auto Heme SS MCHC (RBC) [Mass/Vol] 34.5 G/dL Invalid Interpretation Code 33.0 - 37.0 G/dL AO Auto Heme SS MCV (RBC) [Entitic vol] 89.1 fL Invalid Interpretation Code 80.0 - 94.0 fL AO Auto Heme SS Monocyte, Absolute 0.40 103/mcL Invalid Interpretation Code 0.15 - 1.00 10^3/mcL AO Auto Heme SS Monocytes/100 WBC (Bld) 5.6 % Invalid Interpretation Code 1.7 - 13.0 % AO Auto Heme SS Neutrophil, Absolute 4.30 103/mcL Invalid Interpretation Code 2.85 - 6.16 10^3/mcL AO Auto Heme SS Neutrophils/100 WBC (Bld) 60.6 % Invalid Interpretation Code 37.0 - 80.0 % AO Auto Heme SS Platelet mean volume (Bld) [Entitic vol] 8.0 fL Invalid Interpretation Code 7.4 - 10.4 fL AO Auto Heme SS Platelets (Bld) [#/Vol] 237 103/mcL Invalid Interpretation Code 130 - 400 10^3/mcL AO Auto Heme SS RBC (Bld) [#/Vol] 4.21 106/mcL Invalid Interpretation Code 4.20 - 5.40 10^6/mcL AO Auto Heme SS WBC (Bld) [#/Vol] 7.10 103/mcL Invalid Interpretation Code 4.60 - 10.80 10^3/mcL AO Auto Heme SS LABORATORYOrdered By: Heather Cruz on 06-02-2021 Calcium [Mass/Vol] 8.8 mg/dL Invalid Interpretation Code 8.4 - 10.2 mg/dL AO ADM SS Chloride [Moles/Vol] 104 mmol/L Invalid Interpretation Code 98 - 107 mmol/L AO ADM SS CO2 [Moles/Vol] 26 mmol/L Invalid Interpretation Code 22 - 29 mmol/L AO ADM SS Creatinine [Mass/Vol] 0.72 mg/dL Invalid Interpretation Code 0.55 - 1.02 mg/dL AO ADM SS Electrolyte Balance 10.0 mEq/L Invalid Interpretation Code AO ADM SS Glucose [Mass/Vol] 94 mg/dL Invalid Interpretation Code 70 - 105 mg/dL AO ADM SS Potassium [Moles/Vol] 4.5 mmol/L Invalid Interpretation Code 3.5 - 5.1 mmol/L AO ADM SS Sodium [Moles/Vol] 140 mmol/L Invalid Interpretation Code 136 - 145 mmol/L AO ADM SS Urea nitrogen [Mass/Vol] 13 mg/dL Invalid Interpretation Code 7 - 18 mg/dL AO ADM SS Urea nitrogen/Creatinine [Mass ratio] 18 ratio Invalid Interpretation Code 7 - 27 ratio AO ADM SS LABORATORYOrdered By: SYSTEM SYSTEM on 06-02-2021 GFR 110 ml/min/1.73sqm Invalid Interpretation Code AO Chemistry S GFR Non- 91 ml/min/1.73sqm Invalid Interpretation Code AO Chemistry S Vital Signs Date Time Vital Sign Value Performing Clinician Facility 02-24-2024 09:40-0400 Diastolic Blood Pressure Non-Invasive 62 mm[Hg] LEEROY CELESTE DPM [facility] 02-24-2024 09:40-0400 Heart rate 46 /min LEEROY CELESTE DPM [facility] 02-24-2024 09:40-0400 Systolic Blood Pressure Non-Invasive 105 mm[Hg] LEEROY CELESTE DPM [facility] 02-24-2024 09:34-0400 Diastolic Blood Pressure Non-Invasive 62 mm[Hg] LEEROY CELESTE DPM [facility] 02-24-2024 09:34-0400 Heart rate 50 /min LEEROY SUPPAN DPM [facility] 02-24-2024 09:34-0400 Systolic Blood Pressure Non-Invasive 112 mm[Hg] LEEROY SUPPAN DPM [facility] 02-24-2024 09:24-0400 Diastolic Blood Pressure Non-Invasive 59 mm[Hg] LEEROY SUPPAN DPM [facility] 02-24-2024 09:24-0400 Heart rate 52 /min LEEROY SUPPAN DPM [facility] 02-24-2024 09:24-0400 Systolic Blood Pressure Non-Invasive 89 mm[Hg] LEEROY SUPPAN DPM [facility] 02-24-2024 09:18-0400 Body temperature 96.98 [degF] LEEROY SUPPAN DPM [facility] 02-24-2024 09:18-0400 Respiratory rate 14 /min LEEROY SUPPAN DPM [facility] 02-24-2024 09:15-0400 Respiratory Rate - Anes 12 br/min LEEROY SUPPAN DPM [facility] 02-24-2024 09:10-0400 Respiratory Rate - Anes 11 br/min LEEROY SUPPAN DPM [facility] 02-24-2024 09:05-0400 Respiratory Rate - Anes 10 br/min LEEROY SUPPAN DPM [facility] 02-24-2024 08:05-0400 Body height 163 cm LEEROY SUPPAN DPM [facility] 02-24-2024 08:05-0400 Body weight 79.5 kg LEREOY CELESTE DPM [facility] 02-24-2024 08:00-0400 Body temperature 97.52 [degF] LEEROY CELESTE DPM [facility] 05-10-2022 14:38-0500 Body temperature 98 [degF] [facility] Work Phone: 05-10-2022 14:38-0500 Diastolic blood pressure 68 mm[Hg] [facility] Work Phone: 05-10-2022 14:38-0500 Heart rate 72 /min [facility] Work Phone: 05-10-2022 14:38-0500 Respiratory rate 16 /min [facility] Work Phone: 05-10-2022 14:38-0500 SaO2% (BldA) [Mass fraction] 97 % [facility] Work Phone: 05-10-2022 14:38-0500 Systolic blood pressure 129 mm[Hg] [facility] Work Phone: 05-10-2022 11:00-0500 Inhaled oxygen flow rate 4 L/min [facility] Work Phone: 05-10-2022 08:40-0500 Body height 160.02 cm [facility] Work Phone: 05-10-2022 08:40-0500 Body mass index (BMI) [Ratio] 34.2 kg/m2 [facility] Work Phone: 05-10-2022 08:40-0500 Body weight 87.5 kg [facility] Work Phone: 10-26-2021 15:09-0400 Body height 161.[address] Conrad Jenkins Work Phone: [facility] Work Phone: 10-26-2021 15:09-0400 Body mass index (BMI) [Ratio] 35.1 kg/m2 Dr. Conrad Jenkins Work Phone: [facility] Work Phone: 10-26-2021 15:09-0400 Body temperature 97.1 [degF] Dr. Conrad Jenkins Work Phone: [facility] Work Phone: 10-26-2021 15:09-0400 Body weight 91.[address] Conrad Jenkins Work Phone: [facility] Work Phone: 10-26-2021 15:09-0400 Diastolic blood pressure 80 mm[Hg] Dr. Conrad Jenkins Work Phone: [facility] Work Phone: 10-26-2021 15:09-0400 Heart rate 70 /min Dr. Conrad Jenkins Work Phone: [facility] Work Phone: 10-26-2021 15:09-0400 Respiratory rate 18 /min Dr. Conrad Jenkins Work Phone: [facility] Work Phone: 10-26-2021 15:09-0400 SaO2% (BldA) [Mass fraction] 100 % Dr. oCnrad Jenkins Work Phone: [facility] Work Phone: 10-26-2021 15:09-0400 Systolic blood pressure 120 mm[Hg] Dr. Conrad Jenkins Work Phone: [facility] Work Phone: 06-09-2021 17:52-0500 Body height 162.6 cm LUIS STEPHEN MD [facility] 06-09-2021 17:52-0500 Body temperature 98.24 [degF] LUIS STEPHEN MD [facility] 06-09-2021 17:52-0500 Body weight 86.5 kg LUIS STEPHEN MD [facility] 06-09-2021 17:52-0500 Diastolic blood pressure 85 mm[Hg] LUIS STEPHEN MD [facility] 06-09-2021 17:52-0500 Heart rate 67 /min LUIS STEPHEN MD [facility] 06-09-2021 17:52-0500 Systolic blood pressure 136 mm[Hg] LUIS STEPHEN MD [facility] 06-05-2021 13:45-0500 Diastolic Blood Pressure NBP [address] TORO MONTEMAYOR MD [facility] 06-05-2021 13:45-0500 Heart rate 66 /min DR TORO MONTEMAYOR MD [facility] 06-05-2021 13:45-0500 Systolic Blood Pressure NBP [address] TORO MONTEMAYOR MD [facility] 06-05-2021 13:27-0500 Diastolic Blood Pressure NBP [address] TORO MONTEMAYOR MD [facility] 06-05-2021 13:27-0500 Heart rate 65 /min DR TORO MONTEMAYOR MD [facility] 06-05-2021 13:27-0500 Systolic Blood Pressure NBP [address] TORO MONTEMAYOR MD [facility] 06-05-2021 12:53-0500 Diastolic Blood Pressure NBP [address] TORO MONTEMAYOR MD [facility] 06-05-2021 12:53-0500 Heart rate 64 /min DR TORO MONTEMAYOR MD [facility] 06-05-2021 12:53-0500 Systolic Blood Pressure NBP [address] TORO MONTEMAYOR MD [facility] 06-05-2021 11:15-0500 Respiratory rate 17 /min DR TORO MONTEMAYOR MD [facility] 06-05-2021 11:08-0500 Respiratory rate 16 /min DR TORO MONTEMAYOR MD [facility] 06-05-2021 10:59-0500 Respiratory rate 14 /min DR TORO MONTEMAYOR MD [facility] 06-05-2021 09:53-0500 Body temperature 96.62 [degF] DR TORO MONTEMAYOR MD [facility] 06-05-2021 08:01-0500 Body height [address] TORO MONTEMAYOR MD [facility] 06-05-2021 08:01-0500 Body temperature 98.42 [degF] DR TORO MONTEMAYOR MD [facility] 06-05-2021 08:01-0500 Body weight 86.[address] TORO MONTEMAYOR MD [facility] 06-05-2021 08:01-0500 Heart rate 70 /min DR TORO MONTEMAYOR MD [facility] 06-02-2021 10:16-0500 Body height [address] TORO MONTEMAYOR MD [facility] 06-02-2021 10:16-0500 Body weight 86.[address] TORO MONTEMAYOR MD [facility] 06-02-2021 10:16-0500 Body weight 33.75 kg/m2 DR TORO MONTEMAYOR MD [facility] 06-02-2021 10:16-0500 diastolic 82 mm[Hg] DR TORO MONTEMAYOR MD [facility] 06-02-2021 10:16-0500 Heart rate 71 /min DR TORO MONTEMAYOR MD [facility] 06-02-2021 10:16-0500 Respiratory rate 20 /min DR TORO MONTEMAYOR MD [facility] 06-02-2021 10:16-0500 systolic 122 mm[Hg] DR TORO MONTEMAYOR MD [facility] Encounters Encounter Date Encounter Type Care Provider Facility Start: 01-09-2025 End: 01-09-2025 ambulatory ANISA RIDDLE USED CAR MANAGER-ATTORNEY RECRUITER Facility:[facility] Start: 01-09-2025 End: 01-09-2025 Patient encounter procedure VANESSA Neva AVITIA DO [facility] Start: 01-07-2025 End: 01-07-2025 ambulatory VANESSA AVITIA DO Facility:[facility] Start: 01-07-2025 End: 01-07-2025 Patient encounter procedure VANESSA Neva AVITIA DO [facility] Start: 03-08-2024 End: 03-08-2024 ambulatory LY SERRANO USED CAR MANAGER-ATTORNEY RECRUITER Facility:[facility] Start: 03-08-2024 End: 03-08-2024 Patient encounter procedure LY SERRANO USED CAR MANAGER-ATTORNEY RECRUITER [facility] Start: 02-24-2024 End: 02-24-2024 ambulatory ANISA RIDDLE Facility:[facility] Start: 02-24-2024 End: 02-24-2024 SAME DAY STAY LEEROY CELESTE DPM [facility] Start: 02-16-2024 End: 02-16-2024 ambulatory LEEROY CELESTE DPM Facility:[facility] Start: 01-13-2024 ambulatory ANISA RIDDLE Facil ity:[facility] Start: 10-24-2023 End: 10-28-2023 ambulatory ANISA RIDDLE [facility] Start: 10-24-2023 End: 10-28-2023 Outreach Lab CEILNE Martinez YEBOAH USED CAR MANAGER-ATTORNEY RECRUITER [facility] Start: 08-12-2023 End: 08-12-2023 ambulatory ANISA RIDDLE [facility] Start: 02-16-2023 End: 02-20-2023 Outreach Lab LY RUBIN USED CAR MANAGER-CNM [facility] Start: 02-16-2023 End: 02-16-2023 Patient encounter procedure LY Zhang JONGJAVADCALLIE USED CAR MANAGER-CNM [facility] Start: 12-22-2022 End: 12-22-2022 Patient encounter procedure MARIEL MAST USED CAR MANAGER-ATTORNEY RECRUITER [facility] Start: 10-23-2022 [facility] Start: 09-21-2022 End: 09-21-2022 Patient encounter procedure MARIEL MAST USED CAR MANAGER-ATTORNEY RECRUITER [facility] Start: 09-06-2022 End: 09-10-2022 Outreach Lab TEJAS GASTON MD [facility] Start: 05-10-2022 End: 05-10-2022 ambulatory No Primary Care Physician Facility:[facility] Start: 05-10-2022 End: 05-10-2022 Admission to same day surgery center [facility] Start: 05-10-2022 End: 05-10-2022 ambulatory [facility] Work Phone: Start: 12-18-2021 End: 12-18-2021 Patient encounter procedure NICOLAS FU DO [facility] Start: 10-26-2021 End: 10-26-[address] Conrad Jenkins Work Phone: [facility] Start: 10-26-2021 End: 10-26-[address] Conrad Jenkins Work Phone: [facility] Start: 10-26-2021 End: 10-26-2021 ambulatory Conradrohith Jenkins Facility:[facility] Start: 06-09-2021 End: 06-09-2021 Emergency department patient visit LUIS STEPHEN MD [facility] Start: 06-05-2021 End: 06-05-[address] TORO MONTEMAYOR MD [facility] Start: 06-02-2021 End: 06-02-[address] TORO MONTEMAYOR MD [facility] Procedures Date Procedure Procedure Detail Performing Clinician Start: 02-02-2024 Foot structure (body structure) LY SERRANO USED CAR MANAGER-ATTORNEY RECRUITER Comment on above: left, Dr Celeste Start: 05-10-2022 Nasal septoplasty Start: 01-20-2021 Decompression of med luna nerve DR TORO MONTEMAYOR MD Comment on above: RIGHT Start: 01-20-2021 Transposition of uln ar nerve at elbow DR TORO MONTEMAYOR MD Comment on above: RIGHT Start: 07-04-[address] TORO MONTEMAYOR MD Start: 07-04-[address] PAULINE MONTEMAYOR MD section DR TORO LAMB MD Comment on above: x7 Decompression of med luna nerve LEEROY MICHOACANO DPM Comment on above: bilateral Fractured nasal sept um (disorder) LEEROY SUPPAN DPM H/O: hysterectomy History of hysterectomy LY RUBIN USED CAR MANAGER-CNM Nasal septoplasty DR TORO MONTEMAYOR MD Vaginal hysterectomy DR PAULINE MONTEMAYOR MD Plan of Treatment Date Care Activity Detail Author Start: 05-10-2022 Ambulation without limitation [facility] Work Phone: Start: 05-10-2022 Elevation of head of bed [facility] Work Phone: Start: 05-10-2022 Medical regimen orde rs management [facility] Work Phone: Start: 05-10-2022 Patient discharge [facility] Work Phone: Start: 05-10-2022 Procedure discontinued [facility] Work Phone: Start: 05-10-2022 Taking patient vital signs [facility] Work Phone: Start: 05-10-2022 Vital signs measurements [facility] Work Phone: Start: 05-10-2022 Medication education [facility] Work Phone: Patient referral [facility] Work Phone: Immunizations Immunization Date Immunization Notes Care Provider Amanda dickson 03-17-2015 influenza virus vacc ine, unspecified formulation NICOLAS FU DO [facility] 07-30-2014 influenza, seasonal, injectable DR TORO MONTEMAYOR MD [facility] 07-30-2014 pneumococcal polysaccharide vaccine, [address] TORO MONTEMAYOR MD [facility] 04-02-2013 influenza virus vacc ine, unspecified formulation NICOLAS FU DO [facility] 04-02-2013 tetanus toxoid, redu grace diphtheria toxoid, and acellular pertussis vaccine, adsorbed NICOLAS FU DO [facility] 07-25-2010 tetanus toxoid, redu grace diphtheria toxoid, and acellular pertussis vaccine, adsorbed DR TORO MONTEMAYOR MD [facility] Payers Date Payer Category Payer Unknown [id number] 2021 Unknown [id number] 2020 Self-pay [id number] 2020 Medicaid [id number] 1985 Unknown [id number] 2.16.8 [id number] 1983 Unknown [id number] 2.16.8 [id number] 1983 Unknown [id number] 2.16.8 [id number] 1983 Unknown [id number] 2.16.8 [id number] 1983 Unknown [id number] 2.16.8 [id number] 1983 Unknown [id number] 2.16.8 [id number] 1983 Unknown [id number] 2.16. [id number] 1983 Unknown [id number] 2.16. [id number] 1983 Unknown [id number] 2.16.8 [id number] Unknown [id number] 2.16.8 [id number] Unknown [id number] 2.16.8 [id number] Unknown [id number] 2.16.8 [id number] Unknown [id number] 2.16.8 [id number] Social History Date Type Detail Facility Start: 06-02-2021 End: 02-16-2024 Ex-smoker (finding) [facility] Start: 1985 Sex Assigned At Female A [facility] Start: 10-26-2021 End: 05-04-2022 Tobacco smoking status KSIS Unknown if ever smoked [facility] Work Phone: [facility] Start: 12-27-2018 Sex Female (finding) [facility] Goals Date Patient Goal Desired Activity /State Functional Status Date Assessment Result Facility 02-24-2024 Functional Status ice chips and sips take n [facility] 02-24-2024 Functional Status [facility] Status Date Assessment Result Facility 02-24-2024 Mental Status Orientation Oriented x 4 [facility] 02-24-2024 Mental Status [facility] 05-10-2022 Cognitive function Voice/Name [facility] Work Phone: 05-10-2022 Cognitive function Patient Kamila montgomery Person;Place;Time [facility] Work Phone: Clinical Notes 06-05-2021 to 01-09-2025 Note Date & Type Note Facility 01-09-2025 Note Exam Date Time Procedure Performing Provider Status 01/09/25 7:28 AM US Abdomen Limited ANGELA NAPIER MD; Au th (Verified) [id number] ORIGINAL EXAMINATION: RIGHT UPPER QUADRANT ULTRASOUND 01/09/2025 7:33 am TECHNIQUE: This report is based on interpretation of permanently recorded ultrasound images. COMPARISON: None. HISTORY: ORDERING SYSTEM PROVIDED HISTORY: Reason for Exam: RUQ abdominal pain, diarrhea FINDINGS: LIVER: The liver demonstrates normal echogenicity with a smooth contour without evidence of intrahepatic biliary ductal dilatation. Portal vein demonstrates antegrade flow. BILIARY SYSTEM: Gallbladder has been surgically removed. Common bile duct is measuring 6.5 mm which is considered normal post-cholecystectomy. An echogenic density measuring 1.2 x 0.8 x 0.6 cm is visualized within the common bile duct which may represent a stone. RIGHT KIDNEY: The right kidney is grossly unremarkable measuring 10.2 x 5.6 x 4.2 cm without evidence of hydronephrosis. PANCREAS: Visualized pancreas shows no focal lesion or mass. AORTA AND IVC: The portions visualized of the aorta and IVC are patent. Visualization is compromised due to obstructing gas. OTHER: No evidence of right upper quadrant ascites. IMPRESSION: Common bile duct measuring 6.5 mm which is considered normal post-cholecystectomy. Suspect common duct stone, consider MRCP or ERCP.. I have personally reviewed the images of this examination and agree with the resident's findings and interpretation. Interpreted by: Angela Napier MD Preliminary Report By: Sofie Sánchez Electronically signed By Angela Napier MD Dictated Date: 01/09/2025 9:03:45 AM Prelim Date: 01/09/2025 10:48:26 AM Sign Date: 01/09/2025 10:48:26 AM Ordering Provider: VANESSA AVITIA Interpreted by: Angela Napier MD Preliminary Report By: Sofie Sánchez Electronically signed By Angela Napier MD Dictated Date: 01/09/2025 9:03:45 AM Prelim Date: 01/09/2025 10:48:26 AM Sign Date: 01/09/2025 10:48:26 AM Ordering Provider: VANESSA AVITIA [facility] Evaluation + Plan note Diagnostic Tests Pending * Celiac Disease Comprehensive 03/08/24 Future Scheduled Tests Laboratory* H. pylori Stool Ag, EIA 03/08/24 * Calprotectin, Fecal 03/08/24 [facility] 09-05-2024 Evaluation + Plan note Future Scheduled Tests Laboratory* H. pylori Stool Ag, EIA 03/08/24 * Calprotectin, Fecal 03/08/24 Radiology* US Abdomen Limited 01/07/25 [facility] 09-05-2024 Evaluation + Plan note Future Scheduled Tests Laboratory* H. pylori Stool Ag, EIA 03/08/24 * Calprotectin, Fecal 03/08/24 [facility] 08-23-2024 Hospital Discharge instructions Patient Education 02/24/2024 09:24:44 Moderate Conscious Sedation, Adult, Care After Moderate Conscious Sedation, Adult, Care After These instructions provide you with information about caring for yourself after your procedure. Your health care provider may also give you more specific instructions. Your treatment has been plannedaccording to current medical practices, but problems sometimes occur. Call your health care provider if you have any problems or questions after your procedure. What can I expect after the procedure? After your procedure, it is common: To feel sleepy for several hours. To feel clumsy and have poor balance for several hours. To have poor judgment for several hours. To vomit if you eat too soon. Follow these instructions at home: For at least 24 hours after the procedure: Do not: ?Participate in activities where you could fall or become injured. ?Drive. ?Use heavy machinery. ?Drink alcohol. ?Take sleeping pills or medicines that cause drowsiness. ?Make important decisions or sign legal documents. ?Take care of children on your own. Rest. Eating and drinking Follow the diet recommended by your health care provider. If you vomit: ?Drink water, juice, or soup when you can drink without vomiting. ?Make sure you have little or no nausea before eating solid foods. General instructions Have a responsible adult stay with you until you are awake and alert. Take drqr-oby-humqjzc and prescription medicines only as told by your health care provider. If you smoke, do not smoke without supervision. Keep all follow-up visits as told by your health care provider. This is important. Contact a health care provider if: You keep feeling nauseous or you keep vomiting. You feel light-headed. You develop a rash. You have a fever. Get help right away if: You have trouble breathing. This information is not intended to replace advice given to you by your health care provider. Make sure you discuss any questions you have with your health care provider. Document Released: 04/10/2014 Document Revised: 06/02/2018 Document Reviewed: 10/09/2016 [employer] Patient Education 2020 [employer]. 02/24/2024 09:24:44 Endoscopic Plantar Fasciotomy, Care After Endoscopic Plantar Fasciotomy, Care After This sheet gives you information about how to care for yourself after your procedure. Your health care provider may also give you more specific instructions. If you have problems or questions, contact your health care provider. What can I expect after the procedure? After the procedure, it is common to have: Foot pain and stiffness. Swelling in the incision area. Follow these instructions at home: If you have a boot or protective shoe: Wear it as told by your health care provider. Remove it only as told by your health care provider. Loosen it if your toes tingle, become numb, or turn cold and blue. Keep it clean. If it is not waterproof: ?Do not let it get wet. ?Cover it with a watertight covering when you take a bath or shower. Bathing Do not take baths, swim, or use a hot tub until your health care provider approves. Ask your healthcare provider if you may take showers. You may only be allowed to take sponge baths. Keep the dressing dry until your health care provider says it can be removed. Incision care Follow instructions from your health care provider about how to take care of your incision. Make sure you: ?Wash your hands with soap and water before and after you change your bandage (dressing). If soap and water are not available, use hand newspaper illustrator. ?Change your dressing as told by your health care provider. ?Leave stitches (sutures), skin glue, or adhesive strips in place. These skin closures may need to stay in place for 2 weeks or longer. If adhesive strip edges start to loosen and curl up, you may trim the loose edges. Do not remove adhesive strips completely unless your health care provider tells you to do that. Check your incision area every day for signs of infection. Check for: ?More swelling or pain. ?Redness. ?Warmth. ?Fluid or blood. ?Pus or a bad smell. Managing pain, stiffness, and swelling If directed, put ice on the affected area. ?Put ice in a plastic bag. ?Place a towel between your skin and the bag. ?Leave the ice on for 20 minutes, 2 3 times a day. Move your toes often to reduce stiffness and swelling. Raise (elevate) the affected area above the level of your heart while you are sitting or lying down. Driving Do not drive for 24 hours if you were given a sedative during your procedure. Ask your health care provider: ?If the medicine prescribed to you requires you to avoid driving or using heavy machinery. ?When it is safe to drive if you have been given a boot or protective shoe to wear on your foot. Activity Do not use the affected foot to support (bear) your body weight until your health care provider says that you can. Use crutches as told by your health care provider. Return to your normal activities as told by your health care provider. Ask your health care provider what activities are safe for you. General instructions Take jfwf-ser-qoilpke and prescription medicines only as told by your health care provider. Keep all follow-up visits as told by your health care provider. This is important. Contact a health care provider if: You have a loss of feeling (numbness) in your foot. You have more swelling or pain at the site of your incision. You have redness at the site of your incision. Your incision feels warm to the touch. You have fluid or blood coming from your incision. You have pus or a bad smell coming from your incision. You have a fever or chills. The dressing is too tight. Get help right away if: You have difficulty moving your foot. You have swelling in your leg or calf. Summary After the procedure, it is common to have foot pain and stiffness. If directed, put ice on the affected area 2 3 times a day. If you have crutches, use them to keep weight off your foot as told by your health care provider. Keep all follow-up visits as told by your health care provider. This is important. This information is not intended to replace advice given to you by your health care provider. Make sure you discuss any questions you have with your health care provider. Document Released: 05/31/2016 Document Revised: 10/11/2019 Document Reviewed: 06/18/2019 [employer] Patient Education 2020 [employer]. Follow Up Care 02/08/2024 09:49:18 With:LEEROY CELESTE Address: Real Castellanos, Ethel [address] [facility] [place] [address]- Business (1) When:03/01/2024 16:00:00 Comments:Follow-up as scheduled [facility] 08-23-2024 Summary of episode note Discharge Instructions Thank you for allowing [facility] to assist you with your healthcare needs. The following is importantdischarge information regarding your hospital visit. Your Care Team ANISA RIDDLE APRN-MORIS What to do next Follow Up Appointments Follow Up with LEEROY CELESTE When:03/01/2024 04:00 PM EDT [facility] [address] [facility] [place] [address]- Business (1) Additional Information: Follow-up as scheduled The Following Activity and Diet Have Been Ordered for You Discharge Activity - Ordered -- Other, Follow the post-operative/post-procedure activity instructions provided by your physician's office., 02/24/24 9:22:00 EDT No qualifying data available. The Following Equipment Has Been Ordered for You Discharge Home Equipment Discharge Home Equipment - Ordered -- Crutches, 99 month(s), 02/24/24 9:46:00 EDT Discharge Wound Care - Ordered -- Follow the post-operative/post-procedure wound care instructions provided by your physician's office., 02/24/24 9:22:00 EDT The Following Treatments Have Been Ordered for You Discharge Labs No qualifying data available. Discharge Radiology No qualifying data available. Other Therapies No qualifying data available. Post Acute Orders No qualifying data available. Someone Will Contact You Regarding These Home Health Referrals No home referrals have been ordered for you. No one will call you. Allergies Bee Stings Swelling morphine Edema Medications Please ask your primary doctor or pharmacist before taking any other medication not listed, including over the counter drugs, herbal medications, vitamins and or supplements as they may interact withyour home medications. What How Much When Why Instructions Last Dose Unchanged albuterol (albuterol MDI (90 mcg/ inh) CFC free inhalation aerosol) 1 puff(s) by inhalation Every 4 hours as needed for as needed for wheezing Unchanged albuterol (albuterol 2.5 mg/ 3 mL (0.083%) inhalation solution) 3 Milliliter by inhalation Every 4 hours as needed for for wheezing Asthma Unchanged herbal/ nutritional product 3 cap by mouth Two (2) times a day Please take this list to your next doctor s visit. Bring all medications you take, including over the counter medications, herbals and other supplements with you to your doctor s visit. Patients and families are reminded to discard old lists and to update any records with all medication providers or retail pharmacies. Medication Leaflets acetaminophen and oxycodone (a SEET a MIN oh fen and OX i KOE done) Endocet 10/325, Endocet 2.5/325, Endocet 5/325, Endocet 7.5/325, Nalocet, Percocet, Prolate What is the most important information I should know about acetaminophen and oxycodone? MISUSE OF OPIOID MEDICINE CAN CAUSE ADDICTION, OVERDOSE, OR . Keep the medication in a place where others cannot get to it. Taking opioid medicine during may cause life-threatening withdrawal symptoms in the . Fatal side effects can occur if you use opioid medicine with alcohol, or with other drugs that cause drowsiness or slow your breathing. Stop taking this medicine and call your doctor right away if you have skin redness or a rash that spreads and causes blistering and peeling. What is acetaminophen and oxycodone? Acetaminophen and oxycodone is a combination medicine used to relieve moderate to severe pain. Acetaminophen and oxycodone contains an opioide medicine and may be habit-forming. Acetaminophen and oxycodone may also be used for purposes not listed in this medication guide. What should I discuss with my healthcare provider before taking acetaminophen and oxycodone? You should not use this medicine if you are allergic to acetaminophen or oxycodone, or if you have: severe asthma or breathing problems; or a blockage in your stomach or intestines. Tell your doctor if you have ever had: breathing problems, sleep apnea; liver disease; a drug or alcohol addiction; kidney disease; a head injury or seizures; urination problems; or problems with your thyroid, pancreas, or gallbladder. If you use opioid medicine while you are , your baby could become dependent on the drug. This can cause life-threatening withdrawal symptoms in the baby after it is born. Babies born dependent on opioids may need medical treatment for several weeks. Ask a doctor before using opioid medicine if you are . Tell your doctor if you notice severe drowsiness or slow breathing in the nursing baby. How should I take acetaminophen and oxycodone? Follow all directions on your prescription label. Never take this medicine in larger amounts, or for longer than prescribed. An overdose can damage your liver or cause . Tell your doctor if you feel an increased urge to use more of this medicine. Never share opioid medicine with another person, especially someone with a history of drug abuse oraddiction. MISUSE CAN CAUSE ADDICTION, OVERDOSE, OR . Keep the medicine in a place where others cannot get to it. Selling or giving away opioid medicine is against the law. Measure liquid medicine carefully. Use the dosing syringe provided, or use a medicine dose-measuring device (not a kitchen spoon). If you need surgery or medical tests, tell the doctor ahead of time that you are using this medicine. You should not stop using this medicine suddenly. Follow your doctor's instructions about tapering your dose. Store at room temperature away from moisture and heat. Keep track of your medicine. You should be aware if anyone is using it improperly or without a prescription. Do not keep leftover opioid medication. Just one dose can cause in someone using this medicine accidentally or improperly. Ask your pharmacist where to locate a drug take-back disposal program.If there is no take-back program, flush the unused medicine down the toilet. What happens if I miss a dose? Since this medicine is used for pain, you are not likely to miss a dose. Skip any missed dose if itis almost time for your next dose. Do not use two doses at one time. What happens if I overdose? Seek emergency medical attention or call the Poison Help line at . An overdose of this medicine can be fatal, especially in a child or other person using the medicine without a prescription. Overdose symptoms may include nausea, vomiting, sweating, severe drowsiness, pinpoint pupils, slow breathing, or no breathing. Your doctor may recommend you get naloxone (a medicine to reverse an opioid overdose) and keep it with you at all times. A person caring for you can give the naloxone if you stop breathing or don't wake up. Your caregiver must still get emergency medical help and may need to perform CPR (cardiopulmonary resuscitation) on you while waiting for help to arrive. Anyone can buy naloxone from a pharmacy or local health department. Make sure any person caring foryou knows where you keep naloxone and how to use it. What should I avoid while taking acetaminophen and oxycodone? Avoid driving or operating machinery until you know how this medicine will affect you. Dizziness ordrowsiness can cause falls, accidents, or severe injuries. Do not drink alcohol. Dangerous side effects or could occur. Ask a doctor or pharmacist before using any other medicine that may contain acetaminophen (sometimes abbreviated as APAP). Taking certain medications together can lead to a fatal overdose. What are the possible side effects of acetaminophen and oxycodone? Get emergency medical help if you have signs of an allergic reaction: hives; difficulty breathing; swelling of your face, lips, tongue, or throat. Opioid medicine can slow or stop your breathing, and may occur. A person caring for you should give naloxone and/or seek emergency medical attention if you have slow breathing with long pauses,blue colored lips, or if you are hard to wake up. In rare cases, acetaminophen may cause a severe skin reaction that can be fatal. This could occur even if you have taken acetaminophen in the past and had no reaction. Stop taking this medicine and call your doctor right away if you have skin redness or a rash that spreads and causes blistering andpeeling. Call your doctor at once if you have: noisy breathing, sighing, shallow breathing, breathing that stops; a light-headed feeling, like you might pass out; weakness, tiredness, fever, unusual bruising or bleeding; confusion, unusual thoughts or behavior; problems with urination; liver problems--nausea, upper stomach pain, tiredness, loss of appetite, dark urine, tiffany-colored stools, jaundice (yellowing of the skin or eyes); low cortisol levels-- nausea, vomiting, loss of appetite, dizziness, worsening tiredness or weakness; or high levels of serotonin in the body--agitation, hallucinations, fever, sweating, shivering, fast heart rate, muscle stiffness, twitching, loss of coordination, nausea, vomiting, diarrhea. Serious breathing problems may be more likely in older adults and in those who are debilitated or have wasting syndrome or chronic breathing disorders. Common side effects include: dizziness, drowsiness, feeling tired; feelings of extreme happiness or sadness; nausea, vomiting, stomach pain; constipation; or headache. This is not a complete list of side effects and others may occur. Call your doctor for medical advice about side effects. You may report side effects to FDA at 3-163-XFQ-7594. What other drugs will affect acetaminophen and oxycodone? You may have breathing problems or withdrawal symptoms if you start or stop taking certain other medicines. Tell your doctor if you also use an antibiotic, antifungal medication, heart or blood pressure medication, seizure medication, or medicine to treat HIV or hepatitis C. Opioid medication can interact with many other drugs and cause dangerous side effects or . Be sure your doctor knows if you also use: cold or allergy medicines, bronchodilator asthma/COPD medication, or a diuretic ('water pill'); medicines for motion sickness, irritable bowel syndrome, or overactive bladder; other opioids--opioid pain medicine or prescription cough medicine; a sedative like Valium--diazepam, alprazolam, lorazepam, Xanax, Klonopin, Versed, and others; drugs that make you sleepy or slow your breathing--a sleeping pill, muscle relaxer, medicine to treat mood disorders or mental illness; drugs that affect serotonin levels in your body--a stimulant, or medicine for depression, Parkinson's disease, migraine headaches, serious infections, or nausea and vomiting. This list is not complete. Other drugs may affect acetaminophen and oxycodone, including prescription and kfyz-kyg-mdhmdvu medicines, vitamins, and herbal products. Not all possible interactions are listed here. Where can I get more information? Your doctor or pharmacist can provide more information about acetaminophen and oxycodone. Remember, keep this and all other medicines out of the reach of children, never share your medicines with others, and use this medication only for the indication prescribed. Every effort has been made to ensure that the information provided by [employer]. ('[employer]') is accurate, up-to-date, and complete, but no guarantee is made to that effect. Drug information contained herein may be time sensitive. [employer] information has been compiled for use by healthcare practitioners and consumers in the [place] and therefore [employer] does not warrant that uses outside of the [place] are appropriate, unless specifically indicated otherwise. [employer] drug information does not endorse drugs, diagnose patients or recommend therapy. [employer] drug information isan informational resource designed to assist licensed healthcare practitioners in caring for their p atients and/or to serve consumers viewing this service as a supplement to, and not a substitute for, the expertise, skill, knowledge and judgment of healthcare practitioners. The absence of a warningfor a given drug or drug combination in no way should be construed to indicate that the drug or drug combination is safe, effective or appropriate for any given patient. [employer] does not assume any responsibility for any aspect of healthcare administered with the aid of information [employer] provides. The information contained herein is not intended to cover all possible uses, directions, precautions, warnings, drug interactions, allergic reactions, or adverse effects. If you have questions about the drugs you are taking, check with your doctor, nurse or pharmacist. Copyright 1085-6677 [employer]. Version: 22.. Revision Date: 02/03/2023. Education Materials Moderate Conscious Sedation, Adult, Care After These instructions provide you with information about caring for yourself after your procedure. Your health care provider may also give you more specific instructions. Your treatment has been plannedaccording to current medical practices, but problems sometimes occur. Call your health care provider if you have any problems or questions after your procedure. What can I expect after the procedure? After your procedure, it is common: To feel sleepy for several hours. To feel clumsy and have poor balance for several hours. To have poor judgment for several hours. To vomit if you eat too soon. Follow these instructions at home: For at least 24 hours after the procedure: Do not: ? Participate in activities where you could fall or become injured. ? Drive. ? Use heavy machinery. ? Drink alcohol. ? Take sleeping pills or medicines that cause drowsiness. ? Make important decisions or sign legal documents. ? Take care of children on your own. Rest. Eating and drinking Follow the diet recommended by your health care provider. If you vomit: ? Drink water, juice, or soup when you can drink without vomiting. ? Make sure you have little or no nausea before eating solid foods. General instructions Have a responsible adult stay with you until you are awake and alert. Take suzm-lzv-rxajmrr and prescription medicines only as told by your health care provider. If you smoke, do not smoke without supervision. Keep all follow-up visits as told by your health care provider. This is important. Contact a health care provider if: You keep feeling nauseous or you keep vomiting. You feel light-headed. You develop a rash. You have a fever. Get help right away if: You have trouble breathing. This information is not intended to replace advice given to you by your health care provider. Make sure you discuss any questions you have with your health care provider. Document Released: 04/10/2014 Document Revised: 06/02/2018 Document Reviewed: 10/09/2016 [employer] Patient Education 2020 [employer] Endoscopic Plantar Fasciotomy, Care After This sheet gives you information about how to care for yourself after your procedure. Your health care provider may also give you more specific instructions. If you have problems or questions, contact your health care provider. What can I expect after the procedure? After the procedure, it is common to have: Foot pain and stiffness. Swelling in the incision area. Follow these instructions at home: If you have a boot or protective shoe: Wear it as told by your health care provider. Remove it only as told by your health care provider. Loosen it if your toes tingle, become numb, or turn cold and blue. Keep it clean. If it is not waterproof: ? Do not let it get wet. ? Cover it with a watertight covering when you take a bath or shower. Bathing Do not take baths, swim, or use a hot tub until your health care provider approves. Ask your healthcare provider if you may take showers. You may only be allowed to take sponge baths. Keep the dressing dry until your health care provider says it can be removed. Incision care Follow instructions from your health care provider about how to take care of your incision. Make sure you: ? Wash your hands with soap and water before and after you change your bandage (dressing). If soap and water are not available, use hand newspaper illustrator. ? Change your dressing as told by your health care provider. ? Leave stitches (sutures), skin glue, or adhesive strips in place. These skin closures may need to stay in place for 2 weeks or longer. If adhesive strip edges start to loosen and curl up, you may trim the loose edges. Do not remove adhesive strips completely unless your health care provider tells you to do that. Check your incision area every day for signs of infection. Check for: ? More swelling or pain. ? Redness. ? Warmth. ? Fluid or blood. ? Pus or a bad smell. Managing pain, stiffness, and swelling If directed, put ice on the affected area. ? Put ice in a plastic bag. ? Place a towel between your skin and the bag. ? Leave the ice on for 20 minutes, 2 3 times a day. Move your toes often to reduce stiffness and swelling. Raise (elevate) the affected area above the level of your heart while you are sitting or lying down. Driving Do not drive for 24 hours if you were given a sedative during your procedure. Ask your health care provider: ? If the medicine prescribed to you requires you to avoid driving or using heavy machinery. ? When it is safe to drive if you have been given a boot or protective shoe to wear on your foot. Activity Do not use the affected foot to support (bear) your body weight until your health care provider says that you can. Use crutches as told by your health care provider. Return to your normal activities as told by your health care provider. Ask your health care provider what activities are safe for you. General instructions Take kaqk-cfn-pktymxy and prescription medicines only as told by your health care provider. Keep all follow-up visits as told by your health care provider. This is important. Contact a health care provider if: You have a loss of feeling (numbness) in your foot. You have more swelling or pain at the site of your incision. You have redness at the site of your incision. Your incision feels warm to the touch. You have fluid or blood coming from your incision. You have pus or a bad smell coming from your incision. You have a fever or chills. The dressing is too tight. Get help right away if: You have difficulty moving your foot. You have swelling in your leg or calf. Summary After the procedure, it is common to have foot pain and stiffness. If directed, put ice on the affected area 2 3 times a day. If you have crutches, use them to keep weight off your foot as told by your health care provider. Keep all follow-up visits as told by your health care provider. This is important. This information is not intended to replace advice given to you by your health care provider. Make sure you discuss any questions you have with your health care provider. Document Released: 05/31/2016 Document Revised: 10/11/2019 Document Reviewed: 06/18/2019 [employer] Patient Education 2020 [employer]. Additional Information VACCINATE! IT SAVES LIVES! Members of the community who have not yet received the COVID-19 vaccine and would like to receive it can visit one of [facility] vaccine clinics. There are many vaccine clinic locations within the [facility]. For locations and available times, please visit [email or web address].[place].gov/. It is important to note that some COVID mobile vaccine clinics are held outdoors and may be canceled in rainy or stormy conditions. To learn more about pediatric vaccinations (ages 5-11), we invite you to visit the [facility] webpage. [email or web address]/[email or web address] learn more about the COVID-19 vaccine, we invite you to visit the CDC website for a list of frequently asked questions.https://www.cdc.gov/coronavirus/2019-ncov/vaccines/faq.html [facility] Patient Portal Access Instructions: Stay connected with your healthcare team and access your personal medical information anytime with the [facility] Patient Portal. Please follow the directions below to create your [facility] account: 1.Access the email account you provided upon registration to the hospital/physician office.2.Look for an invitation email from [facility].3.Open the email and access the invitation link: [facility] to [facility].4.Fill in the required bundy to create your account. To access your account, visit [email or web address]. Click the blue button labeled Access Patient Portal and then log in with the username and password that you created in the steps above. You will be able to view your test results, lab results, a summary of your visits, upcoming appointments and more. There is also a convenient messaging option where you can send secure messages to your p rovider. In addition, you will have the ability to download any documents or summaries to your computer and/or send the information securely to a physician. Remember that your healthcare information is confidential, so carefully consider who you will allowto register on the [facility] [employer] Patient Portal for access to your information. You can also access the [facility] [employer] [facility] Patient Portal on the [facility] g[facility]ella. Simply click on Patient Portal and then log into your account. If you would like to receive a full copy of your medical records, please contact the [facility] Medical Records Department by calling [phone], Tuesday through Tuesday between 8 a.m. and 4:30 p.m. HOW TO SAFELY DISPOSE OF PRESCRIPTION MEDICATIONS Please use one of the following methods to safely dispose of your unused medications. 1.Use a drug disposal kit: the drug disposal pouch allows you to safely discard your old and unuseddrugs. Ask your nurse to give you one when you are discharged.2.Visit a local take-back location: Many local pharmacies and police departments have programs that collect old and unwanted prescriptiondrugs. Call your local pharmacy or go to http://bit.ly/7V7Pw0a to find one close to you.3.Make use of household items: Use cat litter or old coffee grounds to dispose medications if other options arenot available. Mix your drugs with these household products, seal them in an airtight container andthrow it into the garbage. Call [facility]: [phone] to be sure your drugs can be disposed of in this way. Some medicines may require a different approach.4.Never flush your medications down the toilet. IF YOU HAVE BEEN PRESCRIBED AN OPIOID FOR PAIN If you have been prescribed an opioid (such as hydrocodone, oxycodone or morphine), it is critical to understand the possible side effects and risks of opioid pain medications. Even when taken as directed, opioids can have several side effects including: Tolerance, meaning you might need to take more of a medication for the same pain relief. Nausea, vomiting and/or constipation. Sleepiness, dizziness, dry mouth, confusion, depression or itching. Physical dependence, meaning you have withdrawal symptoms when a medication is stopped, can develop within a few days. KNOW YOUR RESPONSIBILITIES It is important to know exactly how much and how often to take the opioid pain medications you are prescribed. Never take opioids in higher amounts or more often than prescribed. Do not combine opioids with alcohol or other drugs that cause drowsiness, such as benzodiazepines, also known as benzos, including diazepam and alprazolam, muscle relaxants or sleep aids. Never sell or share prescription opioids. This is illegal. Store opioids in a secure place and out of reach of others (including children, family, friends and visitors). The last page of this document has been signed and retained as a CHART COPY. Signatures Patient Education Materials Moderate Conscious Sedation, Adult, Care After Endoscopic Plantar Fasciotomy, Care After Medication Leaflets Percocet 5 mg-325 mg oral tablet My discharge plan and instructions have been reviewed and explained to me and ISHERWIN AMY M understand my current condition and have read and understand these discharge instructions. I have received a written copy of the plan/instructions. If I have questions, I am aware that I should contact my doctor. Patient/Diploma Pharmacy Technician Signature: Date/Time: Relationship to Patient: Witness Name/Signature: Date/Time: [facility]08-23-2024 Anesthesiology Consult note Patient: KONG COURTNEY Age: 38 years Sex: Female : 1985 Associated Diagnoses: None Author: LOBO BENTON Preoperative Information Anesthesia history Patient's history: negative. Family's history: negative. Health Status Allergies: Allergic Reactions (Selected) Severity Not Documented Bee Stings- Swelling. Morphine- Edema., Allergies (2) ActiveSeverityReaction morphineEdema Bee StingsSwelling Current medications: (Selected) Inpatient Medications Ordered LR 1000 mL: 125 mL/hr, Intravenous Prescriptions Prescribed albuterol MDI (90 mcg/inh) CFC free inhalation aerosol: 1 puff(s), Inhalation, q4h, PRN: as needed for wheezing, 18 gram(s), 0 Refill(s) albuterol 2.5 mg/3 mL (0.083%) inhalation solution: 2.5 mg, 3 mL, Inhalation, q4h, PRN: for wheezing, 60 EA, 0 Refill(s) Documented Medications Documented herbal/nutritional product: 3 cap, Oral, BID, 0 Refill(s), Medications (1) Active Scheduled: (0) Continuous: (1) Lactated Ringers Infusion 1000 mL 1,000 mL, Intravenous, 125 mL/hr PRN: (0) Problem list: Medical Acid reflux / SNOMED CT 534317942 / Confirmed Acute URI / SNOMED CT 77195278 / Confirmed Anxiety / SNOMED CT 48615382 / Confirmed Asthma / SNOMED CT [id number] / Confirmed Depressive disorder / SNOMED CT 42490562 / Confirmed Easy bruising / SNOMED CT 4553882099 / Confirmed Exposure to COVID-19 virus / SNOMED CT 7234203707 / Confirmed Chronic GERD / SNOMED CT 940886496 / Confirmed History of hysterectomy / SNOMED CT 362431050 / Confirmed Urinary frequency / SNOMED CT 639200244 / Confirmed Obesity / SNOMED CT 3702758886 / Confirmed Screening for STD (sexually transmitted disease) / SNOMED CT 768554577 / Confirmed Sore throat / SNOMED CT 479713794 / Confirmed Thyroid nodule / SNOMED CT 683002692 / Confirmed Vaginal irritation / SNOMED CT 709093041 / Confirmed, Active Problems (16) Acid reflux Acute URI Anxiety Asthma Carpal tunnel syndrome Chronic GERD Depressive disorder Easy bruising Exposure to COVID-19 virus History of hysterectomy Obesity Screening for STD (sexually transmitted disease) Sore throat Thyroid nodule Urinary frequency Vaginal irritation Histories Past Medical History: Active Asthma ([id number]) Acid reflux ([id number]) Comments: 02/12/2014 EDT 14:29 Lorraine Mckinney RN with spicy foods Family History: Thyroid disease Grandparent Asthma Daughter (Humble Olsen) Son (Vinicius Olsen) Hypertension Father (Zhen Lyle) Carcinoma of brain Grandparent Procedure history: Transposition of ulnar nerve at elbow (1283735) on 01/20/2021 at 35 Years. Comments: 01/20/2021 11:41 CONNIE - Beena Hill RN RIGHT Tonsillectomy ([id number]) in 2001 at 16 Years. Cholecystectomy (38119409) in 2000 at 15 Years. section (04741573). Comments: 02/12/2014 14:29 LISA MCKINNEY x7 Vaginal hysterectomy (603063084). Nasal septoplasty (10659437). Fractured nasal septum (046460065). CTR - carpal tunnel release (1308563688). Comments: 02/16/2024 14:11 Lorraine Mckinney RN bilateral Social History: Social & Psychosocial Habits Alcohol 02/16/2024 Use: Current Frequency: 1-2 times per month Employment/School 10/24/2023 Status: Employed Description: Trying to get hired in at [employer] Substance Abuse 02/16/2024 Use: Never Tobacco 02/16/2024 Tobacco Use: Former smoker, quit more Type: Cigarettes Number of years: 5 Stopped at age: 21 Years Exposure to Tobacco Smoke Lives in non-smoking home Exercise 10/24/2023 Times per week: 5-6 times/week Home/Environment 02/16/2024 Living situation: Home/Independent Domestic Concerns None 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 lives with 4 of her children and one granddaughter Current Home Treatments Nebulizer treatments Special Services and Community Resources None Nutrition/Health 02/16/2024 Type of diet: Regular Appetite Good Eating Difficulties None Caffeine intake amount: Tea- occasional Physical Examination Vital Signs 02/24/2024 8:00 EDT Temperature Temporal Artery 36.4 DegC Peripheral Pulse Rate 50 bpm LOW Respiratory Rate 14 br/min Systolic Blood Pressure Non-Invasive 109 mmHg Diastolic Blood Pressure Non-Invasive 55 mmHg LOW Vital Signs (last 24 hrs) Last Charted Temp Enlnjxgo06.4 DegC (FEB 23 08:00) DQK993 mmHg (FEB 23 08:00) DBPL 55 mmHg (FEB 23 08:) Measurements from flowsheet : Measurements 02/24/2024 8:05 EDT Height 163 cm Admission Weight 79.5 kg [place] Body Weight 55.10 kg Admission Body Mass Index 29.92 m2 Pain assessment: Pain Assessment 02/24/2024 8:00 EDT Primary Pain Location Foot Primary Pain Laterality Left Primary Pain Intensity 3 Pain Scale Type 0-10 Pain scale . General: Alert and oriented. Airway: Normal temporomandibular joint mobility. Mallampati classification: II (soft palate, fauces, uvula visible). Dentition Evaluation: Denies loose/chipped teeth. Respiratory: Lungs are clear to auscultation, Respirations are non-labored. Cardiovascular: Normal rate, Regular rhythm. Neurologic: Alert, Oriented. Review / Management Results review: No qualifying data available , Lab results 02/24/2024 8:10 EDT Lactated Ringers Injection Begin Bag 1,000 mL mL 02/24/2024 8:05 EDT Height 163 cm Admission Weight 79.5 kg [place] Body Weight 55.10 kg Admission Body Mass Index 29.92 m2 Dorsalis Pedis Pulse, Left 2+ Normal Dorsalis Pedis Pulse, Right 2+ Normal Respirations Unlabored Respiratory Pattern Regular Abdomen Description Non-distended, Soft Bowel Sounds All Quadrants Hypoactive Urinary Elimination Voiding, no difficulties Temperature All Extremities Warm Skin Description Normal for ethnicity Characteristics of Speech Clear Level of Consciousness Alert Affect/Behavior Appropriate, Calm, Cooperative Orientation Oriented x 4 Standard Safety ID band on, Safety level maintained, Non-Slip footwear 02/24/2024 8:04 EDT SN - SP - Prep Agents Chloraprep SN - SP - HR - Method N/A 02/24/2024 8:03 EDT SN - Proc - Anesthesia Type MAC SN - Proc - Actual Procedure ENDOSCOPIC PLANTAR FASCIOTOMY, LEFT 02/24/2024 8:03 EDT SN - PP - Body Position Supine Standard Intra-op 02/24/2024 8:01 EDT SN - [facility] - Anti-thromboembolism Mackenzie Sequential Compression Device (SCD) 02/24/2024 8:01 EDT SN - [place] - Medication MARCAINE BUPIVACAINE 0.5% 30ML 02/24/2024 8:00 EDT SN - GCD - Post-operative Diagnosis PLANTAR FASCIITIS, LEFT SN - GCD - Case Level Level 3 02/24/2024 8:00 EDT Designated Person #1 We May Share PHI Melanie Salamanca [phone] Designated Person #1 Relationship Mother Designated Person #2 We May Share PHI doris - LITHU[employer]AKING Designated Person #2 Relationship Significant other Privacy Restrictions Requested None Temperature Temporal Artery 36.4 DegC Peripheral Pulse Rate 50 bpm LOW Respiratory Rate 14 br/min Systolic Blood Pressure Non-Invasive 109 mmHg Diastolic Blood Pressure Non-Invasive 55 mmHg LOW Primary Pain Location Foot Primary Pain Laterality Left Primary Pain Intensity 3 Pain Scale Type 0-10 Pain scale Heart Rhythm Regular Oxygen Therapy Room air Oxygen Saturation 99 % Status No, per patient Sensory Deficits None Sleep Apnea Snore No Sleep Apnea Tired No Sleep Apnea Obstruction No Sleep Apnea Pressure No Sleep Apnea BMI No Sleep Apnea Age No Sleep Apnea Neck No Sleep Apnea Gender No Sleep Apnea Score 0 Diagnosed With Sleep Apnea No Advanced Directives No - refuses information Infectious Disease Symptoms Patient states no symptoms Infectious Disease Recent Exposure No Alcohol and Drug Use No Employee of Institutional Living No Health Care Employee No History of Exposure to TB No History of Positive Chest X-Ray for TB No History of Positive TB Skin Test No Homeless No Known Immunosuppression No Recent Immigrant No Resident of Institutional Living No Bloody Sputum No Fatigue No Fever No Loss of Appetite No Night Sweats No Persistent Cough > 3 Weeks No Weight Loss No Pre-Op Patient Education NPO after midnight, No makeup, No jewelry, Responsible Republican, Aware of surgery location, Pre-op education done, 1 bottle CHG wash with instructions given, No ordered medications, Instructed to bring home medications, SSI prevention handout given SN - Preprocedure Comments Spoke with patient, Verbalizes/Nonverbally indicates understanding, Other: Bring inhaler Anesthesia Evaluation Date/Time 02/16/2024 14:08 Anesthesia Evaluation Performed By LOBO BENTON Anesthesia Evaluation Result Approved Barriers to Learning None evident Teaching Method Explanation, Printed materials Preferred Spoken Language [place]ese Preferred Written Language [place]ese Teaching Evaluation Verbalizes/Nonverbally indicates understanding Safety Brochure Information Reviewed Unable to complete [facility] Video Viewed No Information Given by Patient Patient's Current Physicians Patient's Current Physicians Discharge To, Anticipated Home independently Prev Test Positive/Diagnosis w/COVID-19 No Current Quarantine/Isolated any Illness No Any Contact with Sick Animals/Birds No Traveled Anywhere in Last 30 Days No Lost Weight Unintentionally Recently No Eat Poorly Due to Decreased Appetite No Total MST Score 0 No Personal Devices, Patient Valuables None Anesthesia/Transfusions Prior anesthesia, Prior anesthesia reaction Type of Anesthesia Reaction NAUSEA AND VOMITING Admission Note-Nursing Same Day Patient History 02/24/2024 7:59 EDT SN - CAt - Case Attendee SN - CAt - Case Attendee SN - CAt - Case Attendee SN - CAt - Case Attendee SN - CAt - Case Attendee SN - CAt - Case Attendee SN - CAt - Case Attendee SN - CAt - Case Attendee SN - CAt - Case Attendee SN - CAt - Case Attendee SN - CAt - Case Attendee SN - CAt - Case Attendee SN - CAt - Role Performed Primary Surgeon SN - CAt - Role Performed Leather Products Supervisor 1 SN - CAt - Role Performed Leather Products Supervisor 2 SN - CAt - Role Performed Scrub 1 SN - CAt - Role Performed Automatic Furnace Operator 1 SN - CAt - Role Performed STATE TESTED NURSING ASSISTANT . Assessment and Plan [place] [employer]esthesiologists (ASA) physical status classification: Class II. Anesthetic Preoperative Plan Anesthetic technique: MAC. Postoperative pain management: Per surgeon. Risks discussed: nausea, vomiting, hypotension, allergic reaction, serious complications. Informed consent: signed by patient. Digitally Signed by LOBO BENTON on 02/24/2024 08:12 AM [facility]04-23-2024 Note. MICRO - Microbiology PROCEDURE: Urine Culture [*1] SOURCE: Urine, Clean Catch BODY SITE: COLLECTED DATE/TIME: 10/24/2023 13:33 EDT RECEIVED DATE/TIME: 10/24/2023 19:28 EDT START DATE/TIME: 10/24/2023 19:28 EDT FREE TEXT SOURCE: FINAL REPORTS Final Report [] Verified Date/Time/Personnel: 10/25/2023 14:04 EDT >100,000 cfu/ml Multiple bacterial morphotypes present. Probable Contamination. Suggest recollection if clinically indicated. Performing Locations *1: This test was performed at: [facility], [address] [place] [address], [phone] , [facility] ([place])02-16-2023 Evaluation + Plan note Diagnostic Tests Pending * Anti Mullerian Hormone 02/16/23 * Inhibin B 02/16/23 [facility] 06-21-2023 Note ORIGINAL HISTORY: Thyroid nodule COMPARISON: 17 January 2022 FINDINGS: Size right lobe: 5.5 x 1.8 x 1.5 cm. Size left lobe: 5.3 x 1.5 x 1.7 cm. Size isthmus: 0.5 cm. Texture: Homogeneous There are multiple nodules: Isthmus nodule 1, 1.0 x 0.6 x 1.1 cm, TI-RADS category 1. Left nodule 1, 1.0 x 0.6 x 0.9 cm, TI-RADS category 4. Mixed cystic and solid, hypoechoic, lobulated margins. Left nodule 2, 0.9 x 0.5 x 0.5 cm, TI-RADS category 4. Mixed cystic and solid, hypoechoic, lobulated margin. Left nodule 3, 0.5 x 0.4 x 0.5 cm, TI-RADS category 4. Solid, isoechoic, punctate calcifications. IMPRESSION: A previously seen right sided nodule which was biopsied is no longer evident. Several small moderately suspicious left-sided nodules. None of these requires follow-up per TI-RADS guidelines due to small size. Interpreted by: Manuel Wall MD Preliminary Report By: Manuel Wall MD Electronically signed By Manuel Wall MD Dictated Date: 12/22/2022 2:08:47 PM Prelim Date: 12/22/2022 2:27:40 PM Sign Date: 12/22/2022 2:27:40 PM Ordering Provider: MARIEL CALDERA [facility]06-21-2023 Note ORIGINAL HISTORY: Thyroid nodule COMPARISON: 17 January 2022 FINDINGS: Size right lobe: 5.5 x 1.8 x 1.5 cm. Size left lobe: 5.3 x 1.5 x 1.7 cm. Size isthmus: 0.5 cm. Texture: Homogeneous There are multiple nodules: Isthmus nodule 1, 1.0 x 0.6 x 1.1 cm, TI-RADS category 1. Left nodule 1, 1.0 x 0.6 x 0.9 cm, TI-RADS category 4. Mixed cystic and solid, hypoechoic, lobulated margins. Left nodule 2, 0.9 x 0.5 x 0.5 cm, TI-RADS category 4. Mixed cystic and solid, hypoechoic, lobulated margin. Left nodule 3, 0.5 x 0.4 x 0.5 cm, TI-RADS category 4. Solid, isoechoic, punctate calcifications. IMPRESSION: A previously seen right sided nodule which was biopsied is no longer evident. Several small moderately suspicious left-sided nodules. None of these requires follow-up per TI-RADS guidelines due to small size. Interpreted by: Manuel Wall MD Preliminary Report By: Manuel Wall MD Electronically signed By Manuel Wall MD Dictated Date: 12/22/2022 2:08:47 PM Prelim Date: 12/22/2022 2:27:40 PM Sign Date: 12/22/2022 2:27:40 PM Ordering Provider: [facility]11-07-2022 Note [facility] Medical Records Department [address] [place] [address] Discharge Summary 05/10/22 0952 MR#: [id number] Acct: [id number] Name: COURTNEYKONG Rep #: [id number] : [id number] From: Dev Mesa MD PCP: Care Physician,No Primary Status:[facility] Location: [place] [address] Providers Primary Care Physician: No Primary Care [facility] Reason For Visit: SEPTOPLASTY,PARTIAL RESECTION INFERIOR TURBINATES Medications at Discharge Home Medications loratadine 10 mg tablet (Claritin) 10 mg PO DAILY PRN PRN Allergy Symptoms 10/26/21 cyanocobalamin (B12)-cobamamide 5,000 mcg-100 mcg sublingual lozenge (B12) 1 duane sublingual DAILY 05/04/22 Weight / BMI Weight Weight: 87.5 kg Body Mass Index (BMI) 34.2 D/C Instructions Discharge Diet: No restrictions Additional Activity Instructions: No nose blowing. Start saline nasal spray on 05/11/22. Fleming 3 squirts each nostril 3x/day. Please Follow Up With: Dev Mesa MD When: 8 days Meaningful Use Info Meaningful Use Diagnoses (Choose all that apply): None applicable Discharge Plan Admission Attending Provider: Dev Mesa Primary Care Provider: Care Physician,Louise Primary Discharge Orders/Prescriptions Prescriptions: No Action loratadine [Claritin] 10 mg tablet 10 mg PO DAILY PRN PRN (Reason: Allergy Symptoms) B12 5,000-100 mcg Lozenge 1 duane SUBLINGUAL DAILY Referrals / Follow Up: Care Physician,Louise Primary [Primary Care Provider] - Disposition Disposition (needs filled in before D/C Order can be placed): Home, Self Care 05/10/22 0953 Cosigner Signature (if applicable): CC: Dr. Dev Mesa MD; No [facility] Discharge instructions Patient Education 06/05/2021 10:28:50 How to Use Cold Therapy, [id number] How to Use Cold Therapy Cold therapy, or cryotherapy, is a treatment that uses cold temperatures to treat an injury or medical condition. It includes using cold packs or ice packs to reduce pain and swelling. Only use cold therapy if your doctor says it is okay. What are the risks? Generally, cold therapy is a safe treatment. However, it is not safe for: People who are not able to say they are in pain. These include small children and people who have memory problems. People who have certain conditions, such as: ?A problem in the vessels that slows blood flow to the fingers and toes (Raynaud's syndrome). ?Feeling very cold easily (cold hypersensitivity). ?Lack of feeling in the area being iced. Cold therapy may not be safe for people who have other conditions. Do not use it without talking toyour doctor if you have: A heart condition. High blood pressure. Open or healing wounds. An infection. Pain and swelling in your joints (rheumatoid arthritis). Poor blood flow in the body. Diabetes. Certain skin conditions. How can I make a cold pack? When using a cold pack at home to reduce pain and swelling, you can use: A silica gel cold pack that has been left in the freezer. You can buy this online or in stores. A sealable plastic bag that has been filled with crushed ice. A washcloth or paper towels soaked in cold (or ice) water. A plastic bag of frozen vegetables. Throw them away when you are finished using them as a cold pack. Supplies needed: A cold pack. A towel. This can be dry or damp, based on what you like. How to use cold therapy 1.Have your cold pack ready. 2.Place a towel between the cold pack and your skin. You may also wrap the cold pack in a towel. 3.Put the cold pack on the affected area. Keep it on for no more than 20 minutes at a time. 4.Check your skin after 5 minutes to make sure that there is no damage to the area. Check for: White spots on your skin. Your skin may look blotchy or mottled. Skin that looks blue or pale. Skin that feels waxy or hard. 5.Repeat these steps as many times each day as told by your doctor. Always use a towel to avoid direct contact with your skin. Contact a doctor if: You start to have white spots on your skin. This may give your skin a blotchy or mottled look. Your skin turns blue or pale. Your skin becomes waxy or hard. Your swelling gets worse. Summary Cold therapy, or cryotherapy, is used to treat an injury or other conditions. It includes using cold packs or ice packs to reduce pain and swelling. Cold therapy is not safe for people who are not able to say they are in pain. When using cold packs or ice packs, always place a towel between the cold source and your skin. Check your skin after 5 minutes of icing it. This is to make sure that there is no skin damage. Contact your doctor if you notice changes in your skin or your swelling gets worse. This information is not intended to replace advice given to you by your health care provider. Make sure you discuss any questions you have with your health care provider. Document Released: 12/06/2008 Document Revised: 03/19/2019 Document Reviewed: 03/19/2019 [employer] Patient Education 2020 [employer] 06/05/2021 10:28:32 Deep Vein Thrombosis Deep Vein Thrombosis Deep vein thrombosis (DVT) is a condition in which a blood clot forms in a deep vein, such as a lower leg, thigh, or arm vein. A clot is blood that has thickened into a gel or solid. This condition is dangerous. It can lead to serious and even life-threatening complications if the clot travels to the lungs and causes a blockage (pulmonary embolism). It can also damage veins in the leg. This can result in leg pain, swelling, discoloration, and sores (post-thrombotic syndrome). What are the causes? This condition may be caused by: A slowdown of blood flow. Damage to a vein. A condition that causes blood to clot more easily, such as an inherited clotting disorder. What increases the risk? The following factors may make you more likely to develop this condition: Being overweight. Being older, especially over age 60. Sitting or lying down for more than four hours. Being in the hospital. Lack of physical activity (sedentary lifestyle). , being in childbirth, or having recently given . Taking medicines that contain estrogen, such as medicines to prevent . Smoking. A history of any of the following: ?Blood clots or a blood clotting disease. ?Peripheral vascular disease. ?Inflammatory bowel disease. ?Cancer. ?Heart disease. ?Genetic conditions that affect how your blood clots, such as Factor V Leiden mutation. ?Neurological diseases that affect your legs (leg paresis). ?A recent injury, such as a car accident. ?Major or lengthy surgery. ?A central line placed inside a large vein. What are the signs or symptoms? Symptoms of this condition include: Swelling, pain, or tenderness in an arm or leg. Warmth, redness, or discoloration in an arm or leg. If the clot is in your leg, symptoms may be more noticeable or worse when you stand or walk. Some people may not develop any symptoms. How is this diagnosed? This condition is diagnosed with: A medical history and physical exam. Tests, such as: ?Blood tests. These are done to check how well your blood clots. ?Ultrasound. This is done to check for clots. ?Venogram. For this test, contrast dye is injected into a vein and X-rays are taken to check for any clots. How is this treated? Treatment for this condition depends on: The cause of your DVT. Your risk for bleeding or developing more clots. Any other medical conditions that you have. Treatment may include: Taking a blood thinner (anticoagulant). This type of medicine prevents clots from forming. It may be taken by mouth, injected under the skin, or injected through an IV (catheter). Injecting clot-dissolving medicines into the affected vein (catheter-directed thrombolysis). Having surgery. Surgery may be done to: ?Remove the clot. ?Place a filter in a large vein to catch blood clots before they reach the lungs. Some treatments may be continued for up to six months. Follow these instructions at home: If you are taking blood thinners: Take the medicine exactly as told by your health care provider. Some blood thinners need to be taken at the same time every day. Do not skip a dose. Talk with your health care provider before you take any medicines that contain aspirin or NSAIDs. These medicines increase your risk for dangerous bleeding. Ask your health care provider about foods and drugs that could change the way the medicine works (may interact). Avoid those things if your health care provider tells you to do so. Blood thinners can cause easy bruising and may make it difficult to stop bleeding. Because of this: ?Be very careful when using knives, scissors, or other sharp objects. ?Use an electric razor instead of a blade. ?Avoid activities that could cause injury or bruising, and follow instructions about how to preventfalls. Wear a medical alert bracelet or carry a card that lists what medicines you take. General instructions Take [id number] and prescription medicines only as told by your health care provider. Return to your normal activities as told by your health care provider. Ask your health care provider what activities are safe for you. Wear compression stockings if recommended by your health care provider. Keep all follow-up visits as told by your health care provider. This is important. How is this prevented? To lower your risk of developing this condition again: For 30 or more minutes every day, do an activity that: ?Involves moving your arms and legs. ?Increases your heart rate. When traveling for longer than four hours: ?Exercise your arms and legs every hour. ?Drink plenty of water. ?Avoid drinking alcohol. Avoid sitting or lying for a long time without moving your legs. If you have surgery or you are hospitalized, ask about ways to prevent blood clots. These may include taking frequent walks or using anticoagulants. Stay at a healthy weight. If you are a woman who is older than age 35, avoid unnecessary use of medicines that contain estrogen, such as some control pills. Do not use any products that contain nicotine or tobacco, such as cigarettes and e-cigarettes. Thisis especially important if you take estrogen medicines. If you need help quitting, ask your health care provider. Contact a health care provider if: You miss a dose of your blood thinner. Your menstrual period is heavier than usual. You have unusual bruising. Get help right away if: You have: ?New or increased pain, swelling, or redness in an arm or leg. ?Numbness or tingling in an arm or leg. ?Shortness of breath. ?Chest pain. ?A rapid or irregular heartbeat. ?A severe headache or confusion. ?A cut that will not stop bleeding. There is blood in your vomit, stool, or urine. You have a serious fall or accident, or you hit your head. You feel light-headed or dizzy. You cough up blood. These symptoms may represent a serious problem that is an emergency. Do not wait to see if the symptoms will go away. Get medical help right away. Call your local emergency services (911 in the [place] Do not drive yourself to the hospital. Summary Deep vein thrombosis (DVT) is a condition in which a blood clot forms in a deep vein, such as a lower leg, thigh, or arm vein. Symptoms can include swelling, warmth, pain, and redness in your leg or arm. This condition may be treated with a blood thinner (anticoagulant medicine), medicine that is injected to dissolve blood clots,compression stockings, or surgery. If you are prescribed blood thinners, take them exactly as told. This information is not intended to replace advice given to you by your health care provider. Make sure you discuss any questions you have with your health care provider. Document Released: 06/20/2006 Document Revised: 06/02/2018 Document Reviewed: 11/18/2017 [employer] Patient Education 2020 [employer] 06/05/2021 10:28:23 How To Use a Sling, [id number] How To Use a Sling A sling is a type of hanging bandage. You wear it around your neck to protect an injured arm, shoulder, or other body part. You may need to wear a sling so that your injured body part does not move (is immobilized) while it heals. Keeping the injured part of your body still can lessen pain and speed up healing. Your doctor may suggest that you use a sling if you have: A broken arm. A broken collarbone. A shoulder injury. Surgery. What are the risks? Wearing a sling is safe. In some cases, wearing a sling the wrong way can: Make your injury worse. Cause stiffness or loss of feeling (numbness). Affect blood flow (circulation) in your arm and hand. This can cause tingling or loss of feeling inyour fingers or hands. How to use a sling Follow instructions from your doctor about how and when to wear your sling. Your doctor will show you or tell you: How to put on the sling. How to adjust the sling. When and how often to wear the sling. How to take off the sling. The way that you use a sling depends on your injury. Follow these instructions (unless your doctor tells you other instructions): Wear the sling so that your elbow bends to the shape of a capital letter L (at a 90-degree angle,also called a right angle). Make sure the sling supports your wrist and your hand. Adjust the sling if your fingers or hand start to tingle or lose feeling. Follow these instructions at home: Try to not move your arm. Do not twist, lift, or move your arm in a way that could make your injury worse. Do not lean on your arm while you have to wear a sling. Do not lift anything while you have to wear a sling. Contact a doctor if: You have: ?Bruising, swelling, or pain that gets worse. ?Pain that does not get better with medicine. ?A fever. Your sling: ?Does not support your arm like it should. ?Gets damaged. Get help right away if: You lose feeling in your fingers. Your fingers: ?Are tingling. ?Turn blue. ?Feel cold to the touch. You cannot control the bleeding from your injury. You have shortness of breath. Summary A sling is a type of hanging bandage. You wear it around your neck to protect an injured arm, shoulder, or other body part. You may need to wear a sling so that your injured body part does not move (is immobilized) while itheals. The way that you use a sling depends on your injury. Follow instructions from your doctor about howand when to wear your sling. In general, you should wear the sling so that your elbow bends to the shape of a capital letter L. This information is not intended to replace advice given to you by your health care provider. Make sure you discuss any questions you have with your health care provider. Document Released: 09/14/2010 Document Revised: 06/02/2018 Document Reviewed: 05/11/2018 [employer] Patient Education 2020 [employer]. 06/05/2021 10:27:58 How to Use an Incentive Spirometer How To Use an Incentive Spirometer An incentive spirometer is a tool that measures how well you are filling your lungs with each breath. Learning to take long, deep breaths using this tool can help you keep your lungs clear and active. This may help to reverse or lessen your chance of developing breathing (pulmonary) problems, especially infection. You may be asked to use a spirometer: After a surgery. If you have a lung problem or a history of smoking. After a long period of time when you have been unable to move or be active. If the spirometer includes an indicator to show the highest number that you have reached, your health care provider or respiratory therapist will help you set a goal. Keep a list (log) of your progress as told by your health care provider. What are the risks? Breathing too quickly may cause dizziness or cause you to pass out. Take your time so you do not get dizzy or light-headed. If you are in pain, you may need to take pain medicine before doing incentive spirometry. It is harder to take a deep breath if you are having pain. How to use your incentive spirometer 1.Sit up on the edge of your bed or on a chair. 2.Hold the incentive spirometer so that it is in an upright position. 3.Before you use the spirometer, breathe out normally. 4.Place the mouthpiece in your mouth. Make sure your lips are closed tightly around it. 5.Breathe in slowly and as deeply as you can through your mouth, causing the piston or the ball to rise toward the top of the chamber. 6.Hold your breath for 3 5 seconds, or for as long as possible. If the spirometer includes a transit coach operator indicator, use this to guide you in breathing. Slow down your breathing if the indicator goes above the marked areas. 7.Remove the mouthpiece from your mouth and breathe out normally. The piston or ball will return tothe bottom of the chamber. 8.Rest for a few seconds, then repeat the steps 10 or more times. Take your time and take a few normal breaths between deep breaths so that you do not get dizzy or light-headed. Do this every 1 2 hours when you are awake. 9.If the spirometer includes a goal marker to show the highest number you have reached (best effort), use this as a goal to work toward during each repetition. 10.After each set of 10 deep breaths, cough a few times. This will help to make sure that your lungs are clear. If you have an incision on your chest or abdomen from surgery, place a pillow or a rolled-up towel firmly against the incision when you cough. This can help to reduce pain from coughing. General tips When you become able to get out of bed, walk around often and continue to cough to help clear your lungs. Keep using the incentive spirometer until your health care provider says it is okay to stop using it. If you have been in the hospital, you may be told to keep using the spirometer at home. Contact a health care provider if: You are having difficulty using the spirometer. You have trouble using the spirometer as often as instructed. Your pain medicine is not giving enough relief for you to use the spirometer as told. You have a fever. You develop shortness of breath. Get help right away if: You develop a cough with bloody mucus from the lungs (bloody sputum). You have fluid or blood coming from an incision site after you cough. Summary An incentive spirometer is a tool that can help you learn to take long, deep breaths to keep your lungs clear and active. You may be asked to use a spirometer after a surgery, if you have a lung problem or a history of smoking, or if you have been inactive for a long period of time. Use your incentive spirometer as instructed every 1 2 hours while you are awake. If you have an incision on your chest or abdomen, place a pillow or a rolled-up towel firmly against your incision when you cough. This will help to reduce pain. This information is not intended to replace advice given to you by your health care provider. Make sure you discuss any questions you have with your health care provider. Document Released: 10/31/2007 Document Revised: 07/13/2018 Document Reviewed: 05/03/2018 [employer] Patient Education 2020 [employer]. 06/05/2021 10:27:49 Open Carpal Tunnel Release, Care After Open Carpal Tunnel Release, Care After This sheet gives you information about how to care for yourself after your procedure. Your health care provider may also give you more specific instructions. If you have problems or questions, contact your health care provider. What can I expect after the procedure? After the procedure, it is common to have: Wrist stiffness. Bruising. Follow these instructions at home: Bathing Do not take baths, swim, or use a hot tub until your health care provider approves. Ask your healthcare provider if you may take showers. Keep your bandage (dressing) dry until your health care provider says it can be removed. If you have a splint or brace: Wear the splint or brace as told by your health care provider. You may need to wear it for 2 3 weeks. Remove it only as told by your health care provider. Loosen the splint or brace if your fingers tingle, become numb, or turn cold and blue. Keep the splint or brace clean. If the splint or brace is not waterproof: ?Do not let it get wet. ?Cover it with a watertight covering when you take a bath or a shower. Incision care Follow instructions from your health care provider about how to take care of your incision. Make sure you: ?Wash your hands with soap and water before you change your dressing. If soap and water are not available, use hand newspaper illustrator. ?Change your dressing as told by your health care provider. ?Leave stitches (sutures), skin glue, or adhesive strips in place. These skin closures may need to stay in place for 2 weeks or longer. If adhesive strip edges start to loosen and curl up, you may trim the loose edges. Do not remove adhesive strips completely unless your health care provider tells you to do that. Check your incision area every day for signs of infection. Check for: ?Redness, swelling, or pain. ?Fluid or blood. ?Warmth. ?Pus or a bad smell. Managing pain, stiffness, and swelling If directed, put ice on the affected area. ?If you have a removable splint or brace, remove it as told by your health care provider. ?Put ice in a plastic bag. ?Place a towel between your skin and the bag. ?Leave the ice on for 20 minutes, 2 3 times a day. Move your fingers often to avoid stiffness and to lessen swelling. Raise (elevate) your wrist above the level of your heart while you are sitting or lying down. Activity Do not drive until your health care provider approves. Do not drive or use heavy machinery while taking prescription pain medicine. Return to your normal activities as told by your health care provider. Avoid activities that cause pain. If physical therapy was prescribed, do exercises as told by your therapist. Physical therapy can help you heal faster and regain movement. General instructions Take hejh-bfs-xxabpga and prescription medicines only as told by your health care provider. If you are taking prescription pain medicine, take actions to prevent or treat constipation. Your health care provider may recommend that you: ?Drink enough fluid to keep your urine pale yellow. ?Eat foods that are high in fiber, such as fresh fruits and vegetables, whole grains, and beans. ?Limit foods that are high in fat and processed sugars, such as fried or sweet foods. ?Take an cebj-coh-xzdyxgp or prescription medicine for constipation. Do not use any products that contain nicotine or tobacco, such as cigarettes and e-cigarettes. If you need help quitting, ask your health care provider. Keep all follow-up visits as told by your health care provider and physical therapist. This is important. Contact a health care provider if: You have redness or swelling around your incision. You have fluid or blood coming from your incision. Your incision feels warm to the touch. You have pus or a bad smell coming from your incision. You have a fever. You have chills. You have pain that does not get better with medicine. Your carpal tunnel symptoms do not go away after 2 months. Your carpal tunnel symptoms go away and then come back. Get help right away if: You have pain or numbness that is getting worse. Your fingers or fingertips become very pale or bluish in color. You are not able to move your fingers. Summary It is common to have wrist stiffness and bruising after a carpal tunnel release. Icing and raising (elevating) your wrist may help to lessen swelling and pain. Call your health care provider if you have a fever or notice any signs of infection in your incision area. This information is not intended to replace advice given to you by your health care provider. Make sure you discuss any questions you have with your health care provider. Document Released: 01/07/2006 Document Revised: 06/02/2018 Document Reviewed: 02/27/2018 [employer] Patient Education 2020 [employer]. 06/05/2021 10:27:27 General Anesthesia, Adult, Care After General Anesthesia, Adult, Care After This sheet gives you information about how to care for yourself after your procedure. Your health care provider may also give you more specific instructions. If you have problems or questions, contact your health care provider. What can I expect after the procedure? After the procedure, the following side effects are common: Pain or discomfort at the IV site. Nausea. Vomiting. Sore throat. Trouble concentrating. Feeling cold or chills. Weak or tired. Sleepiness and fatigue. Soreness and body aches. These side effects can affect parts of the body that were not involved in surgery. Follow these instructions at home: For at least 24 hours after the procedure: Have a responsible adult stay with you. It is important to have someone help care for you until youare awake and alert. Rest as needed. Do not: ?Participate in activities in which you could fall or become injured. ?Drive. ?Use heavy machinery. ?Drink alcohol. ?Take sleeping pills or medicines that cause drowsiness. ?Make important decisions or sign legal documents. ?Take care of children on your own. Eating and drinking Follow any instructions from your health care provider about eating or drinking restrictions. When you feel hungry, start by eating small amounts of foods that are soft and easy to digest (bland), such as toast. Gradually return to your regular diet. Drink enough fluid to keep your urine pale yellow. If you vomit, rehydrate by drinking water, juice, or clear broth. General instructions If you have sleep apnea, surgery and certain medicines can increase your risk for breathing problems. Follow instructions from your health care provider about wearing your sleep device: ?Anytime you are sleeping, including during daytime naps. ?While taking prescription pain medicines, sleeping medicines, or medicines that make you drowsy. Return to your normal activities as told by your health care provider. Ask your health care provider what activities are safe for you. Take qudv-nvn-mtrwfbr and prescription medicines only as told by your health care provider. If you smoke, do not smoke without supervision. Keep all follow-up visits as told by your health care provider. This is important. Contact a health care provider if: You have nausea or vomiting that does not get better with medicine. You cannot eat or drink without vomiting. You have pain that does not get better with medicine. You are unable to pass urine. You develop a skin rash. You have a fever. You have redness around your IV site that gets worse. Get help right away if: You have difficulty breathing. You have chest pain. You have blood in your urine or stool, or you vomit blood. Summary After the procedure, it is common to have a sore throat or nausea. It is also common to feel tired. Have a responsible adult stay with you for the first 24 hours after general anesthesia. It is important to have someone help care for you until you are awake and alert. When you feel hungry, start by eating small amounts of foods that are soft and easy to digest (bland), such as toast. Gradually return to your regular diet. Drink enough fluid to keep your urine pale yellow. Return to your normal activities as told by your health care provider. Ask your health care provider what activities are safe for you. This information is not intended to replace advice given to you by your health care provider. Make sure you discuss any questions you have with your health care provider. Document Released: 09/26/2001 Document Revised: 06/23/2018 Document Reviewed: 02/03/2018 [employer] Patient Education 2020 [employer]. Follow Up Care 05/22/2021 07:37:45 With:TORO MONTEMAYOR MD Address: [phone] When: Unknown Comments:CALL DR MONTEMAYOR WITH ANY QUESTIONS OR CONCERNS OR GO TO THE EMERGENCY ROOM WITH ANY URGENT MATTERS. [facility] Evaluation + Plan note Future Appointments [facility] Evaluation + Plan note Future Scheduled Tests Radiology* US Thyroid 12/22/22 [facility] Evaluation note* Diagnosis Onset Date Resolution Status Nodular goiter acute Weight gain acute [facility] Work Phone: Evaluation noteNo assessment information available [facility] Work Phone: Hospital course Narrative No data available for this section [facility] Hospital Discharge instructions No data available for this section [facility] Progress note No data available for this section [facility] Chief Complaint and Reason for Visit 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, 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, 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 Reason for Visit Nodular goiter Weight gain Chief Complaint SEPTOPLASTY,PARTIAL RESECTION INFERIOR TURBINATES Family History No Family History Records Found Relationship Condition Age at Onset Recorded Date/T zheng Not Specified Alcohol abuse Unknown Anxiety Unknown Depression Unknown Hypertension Unknown Advance Directives No Advanced Directives Records Found Advance Directive Response Recorded Date/ Time Living Will No May 04 8:51am Power of Net Development Manager No May 04, 2022 8:51am Summary Purpose Additional Source Comments Goals (unrecognized section and content) Goals may be documented in a n alternate section Care Team (unrecognized sect ion and content) Personnel Name: TEJAS GASTON MD Address: [address] [place] [address]- Care Team Personnel Name: ANISA RIDDLE Position: P4 Advanced Coordinator Of Genetic Services Member Role: Primary Care Physician Address: Address: [address] [place], [place] [address] [place] Care Team Related Persons Name: IBIS COURTNEY Address: Home [address], [place] [id number] [place] Name: MELANIE SALAMANCA Care Team Personnel Name: ANISA RIDDLE Position: P4 Advanced Coordinator Of Genetic Services Member Role: Primary Care Physician Address: Address: [facility] [place] [address]- [place] Care Team Related Persons Name: IBIS COURTNEY Address: Home [address], [place] [id number] [place] Name: MELANIE SALAMANCA Care Team Personnel Name: ANISA RIDDLE APRN-ATTORNEY RECRUITER Position: P4 Advanced Coordinator Of Genetic Services Member Role: Primary Care Physician Address: Address: [address] [place] [address]- Care Team Related Persons Name: IBIS COURTNEY Address: Home [address], [place] [id number] [place] Name: MELANIE SALAMANCA Care Team Personnel Name: ANISA RIDDLE USED CAR MANAGER-ATTORNEY RECRUITER Position: P4 Advanced Coordinator Of Genetic Services Member Role: Primary Care Physician Address: Address: [address] [place] [address]- Care Team Related Persons Name: IBIS COURTNEY Address: Home [address], [place] [phone] [place] Name: MELANIE SALAMANCA Care Team Personnel Name: ANISA RIDDLE USED CAR MANAGER-ATTORNEY RECRUITER Position: P4 Advanced Coordinator Of Genetic Services Member Role: Primary Care Physician Address: Address: [address] [place] [address]- Care Team Related Persons Name: IBIS COURTNEY Address: Home [address], [place] [id number] [place] Name: MELANIE SALAMANCA Care Team Personnel Name: ANISA RIDDLE APRN-ATTORNEY RECRUITER Position: P4 Advanced Coordinator Of Genetic Services Member Role: Primary Care Physician Address: Address: [address] [place] [address]- Care Team Related Persons Name: MELANIE SALAMANCA Name: MELANIE SALAMANCA Address: Home [address], [place] [id number] [place] Address: Temporary [address], [place] [id number] Care Team Personnel Name: ANISA RIDDLE APRN-ATTORNEY RECRUITER Position: P4 Advanced Coordinator Of Genetic Services Member Role: Primary Care Physician Address: Address: [address] [place] [address]- Care Team Related Persons Name: MELANIE SALAMANCA Name: MELANIE SALAMANCA Address: Home [address], [place] [id number] [place] Address: Temporary [address], [place] [id number] Care Team Personnel Name: ANISA RIDDLE APRN-ATTORNEY RECRUITER Position: P4 Advanced Coordinator Of Genetic Services Member Role: Primary Care Physician Address: [address] Telecom: Care Team Related Persons Name: MELANIE SALAMANCA Name: MELANIE SALAMANCA Care Team Personnel Name: ANISA RIDDLE APRN-ATTORNEY RECRUITER Position: P4 Advanced Coordinator Of Genetic Services Member Role: Primary Care Physician Address: [address] Telecom: Care Team Related Persons Name: MELANIE SALAMANCA Name: MELANIE SALAMANCA Care Team (unrecognized sect ion and content) Care Team Personnel Name: TEJAS GASTON MD Position: P4 Physician - Primary Care Member Role: Primary Care Physician Address: Address: [address] Care Team Related Persons Name: IBIS COURTNEY Address: Home [address], [place] [id number] [place] Name: MELANIE SALAMANCA INFORMATION SOURCE (unrecogn ized section and content) DATE CREATED AUTHOR 10/24/2022 [facility] DATE CREATED AUTHOR AUTHOR'S ORGANIZ ATION 03/10/2024 [facility] ([place]) DATE CREATED AUTHOR AUTHOR'S ORGANIZ ATION 01/10/2025 [facility] FOR RECORDS PERTAINING TO PATIENTS WHO ARE OR HAVE BEEN ENROLLED IN A CHEMICAL DEPENDENCY/SUBSTANCEABUSE PROGRAM, SOME INFORMATION MAY BE OMITTED. This clinical summary was aggregated from multiple sources. Caution should be exercised in using it in the provision of clinical care. This summary normalizes information from multiple sources, and as a consequence, information in this document may materially change the coding, format and clinical context of patient data. In addition, data may be omitted in some cases. CLINICAL DECISIONS SHOULD BE BASED ON THE PRIMARY CLINICAL RECORDS. [facility] [employer] [facility]. provides no warranty or guarantee of the accuracy or completeness of information in this document.
[2025-01-12] MEDS: Lidocaine 2% Viscous15 ML UDC 15 ML PO (11:52)
[2025-01-12 12:01] VITALS: BP 105/65; PULSE 44; RESP 18; O2SAT 100
[2025-01-12 12:23] VITALS: BP 105/65; PULSE 44; RESP 18; TEMP 37; O2SAT 100
== END 2025-01-12 12:45 | disposition home or self-care (01) ==
PROVIDERS: Emergency Provider Emergency Medicine; PCP Registered Nurse; Visit Provider Emergency Medicine
DX: R10.9 Unspecified abdominal pain (principal); R00.1 Bradycardia, unspecified; F41.9 Anxiety disorder, unspecified; Z90.710 Acquired absence of both cervix and uterus; Z87.891 Personal history of nicotine dependence; K21.9 Gastro-esophageal reflux disease without esophagitis; R06.09 Other forms of dyspnea; R11.2 Nausea with vomiting, unspecified; R07.9 Chest pain, unspecified
CPT/HCPCS: 74177; 80053; 83605; 83690; 84484; 85025; 93005; 96361; 96374; 96375; 99283; Q9967; A4216; J2405

== ENCOUNTER → 2025-01-24 | Outpatient (CLI) | payer MEDICAID, SELFPAY ==
[2025-01-24 09:18] LABS: Hematocrit 36.6 % (37-47); Hemoglobin 12.7 g/dL (12.0-15.0); Immature Granulocytes Count 0.010 X10^3/uL (0.0-0.0); Mean Corp Hgb Conc 34.7 g/dL (32-36); Mean Corpuscular Volume 87.1 fL (81-99); Mean Platelet Vol. 10.4 fl (6.2-12.0); NRBC Flagged by Analyzer 0 % (0-5); Platelet Count 223 K/mm3 (150-450); RBC Distribution Width CV 12.8 % (11.6-14.6); RBC Distribution Width SD 40.6 fl (35.1-43.9); Red Blood Count 4.20 M/mm3 (4.2-5.4); White Blood Count 6.5 K/mm3 (4.4-11.0)
[2025-01-24 10:05] LABS: AST(SGOT) 21 U/L (<=31); Alanine Aminotransfer ALT/SGPT 18 U/L (<=34); Albumin, Serum 4.4 g/dL (3.5-5.0); Alkaline Phosphatase 64 U/L (35-104); Anion Gap 10 (5-15); BUN 23 mg/dL (4-19); BUN/Creat Ratio 28.6 RATIO (10-20); Calcium,Total 9.2 mg/dL (7.6-11.0); Carbon Dioxide 23.0 mmol/L (21.0-32.0); Chloride 103 mmol/L (98-108); Globulin 2.6 g/dL (2.2-4.2); Glucose 93 mg/dL (70-99); Potassium 4.1 mmol/L (3.3-5.1)
== END | disposition home or self-care (01) ==
LOC: LAB 08:44
PROVIDERS: PCP Registered Nurse; Referring Provider Student in an Organized Health Care Education/Training Program; Visit Provider Student in an Organized Health Care Education/Training Program
DX: R19.5 Other fecal abnormalities (principal)
CPT/HCPCS: 36415; 80053; 85025

== ENCOUNTER 2025-02-26 13:43 | Day surgery (SDC) | payer MEDICAID, SELFPAY ==
[2025-02-26] VITALS (8 sets, daily range): BP systolic 98–113; BP diastolic 49–69; PULSE 45–64; RESP 12–18; TEMP 36.1–36.4; O2SAT 54–100; BMI 35.1
[2025-02-26] MEDS: Lactated Ringers 1,000 ML 15 ML IV (14:08)
--- NOTE | 2025-02-26 14:16 | PRE.ANES_ITS ---
ASA Classification* ASA Classification ASA Classification: 2 Assessment & Plan Anesthesia* Anesthesia Assessment Anesthesia Assessment: Discussed sedation and/or anesthesia options, risks, benefits, and alternatives with patient/parents/legal guardian/POA. Questions invited. The patient/parents/legal guardian/POA seems to understand and agrees to proceed with anesthesia plan. Reviewed the physical assessment, medical history, allergy history and patient home medications list prior to surgery/procedure/anesthetic and documented any changes. Performed airway and anesthesia risk assessments. Anesthesia Type Anesthesia Type: MAC History Source History Obtained from:: Patient and Chart Anesthesia Focused Assessment* Temperature: 97.6 F Pulse Rate: 64 Blood Pressure: 98/69 Respiratory Rate: 18 Pulse Ox: 99 Oxygen Delivery Method: Room Air Airway Assessment Mouth opens: >3 cm Mallampati Score: II Teeth Condition: Intact Neck Range of motion (ROM): Limited ROM (Slight Decrease) Labs Anesthesia Preop lab: CBC WBC 6.5 K/mm3 (4.4-11.0) 01/24/25 08:47 01/24/25 RBC 4.20 M/mm3 (4.2-5.4) 01/24/25 08:47 01/24/25 Hgb 12.7 g/dL (12.0-15.0) 01/24/25 08:47 01/24/25 Hct 36.6 % (37-47) L 01/24/25 08:47 01/24/25 Plt Count 223 K/mm3 (150-450) 01/24/25 08:47 01/24/25 CHEMISTRY Potassium 4.1 mmol/L (3.3-5.1) 01/24/25 08:47 01/24/25 Sodium 136 mmol/L (133-145) 01/24/25 08:47 01/24/25 BUN 23 mg/dL (4-19) H 01/24/25 08:47 01/24/25 Creatinine 0.79 mg/dL (0.70-1.20) 01/24/25 08:47 01/24/25 Glucose 93 mg/dL (70-99) 01/24/25 08:47 01/24/25 TSH 1.01 uIU/mL (0.358-3.74) 10/26/21 15:58 COAG Pre-Assessment Diagnosis/Proposed Procedure Planned Operative Procedure(s): EGD/SCOPE Anesthesia History 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 When Was Last Pacemaker Check QUESTION #4 FULL TEXT: You/Your Family Experience fever (hyperthermia) with Anesthesia Last Oral Intake Last Oral intake: Last Oral Intake NPO since 10:30 02/26/25 13:57 Meds taken in AM with sips of water? Meds patient instructed to take am of surgery Any additional information?: Yes NPO since: 10:30 (Patient finished prep at 10:30 AM.) Meds taken in AM with sips of water?: No PONV PONV - storage engineer: PONV - storage engineer Female Yes 02/21/25 13:53 HX of Motion Sickness Yes 02/21/25 13:53 HX of N/V After Surgery Yes 02/21/25 13:53 Non-Smoker Yes 02/21/25 13:53 Duration of Surgery greater No 02/21/25 13:53 than 60 minutes Number of Risk Factors 4 02/21/25 13:53 PONV Score Severe Risk 02/21/25 13:53 Height & Weight Height & Weight: Anesthesia: Height & Weight Height 5 ft 3 in 02/26/25 13:57 Weight: 90 kg 02/26/25 13:57 Body Mass Index (BMI) 35.1 02/26/25 13:57 Respiratory Assessment Respiratory Assessment - storage engineer: Respiratory Tract Infection Hx - storage engineer Hx Respiratory Tract Infection No 02/21/25 13:53 STOP Sleep Apnea STOP Sleep Apnea - storage engineer: STOP Sleep Apnea - storage engineer Hx Hypertension No 02/21/25 13:53 Hx Sleep Apnea No 02/21/25 13:53 CPAP BIPAP Do you snore loudly (louder No 02/21/25 13:53 than talking or can be heard Do you often feel tired/ No 02/21/25 13:53 fatigued/ sleepy during daytime? Has anyone observed you stop No 02/21/25 13:53 breathing during sleep? STOP Results Negative 02/21/25 13:53 QUESTION #5 FULL TEXT : Do you snore loudly (louder than talking or can be heard through closed doors)? Tobacco Use History Tobacco Use History - storage engineer: Tobacco Use History - storage engineer Tobacco Use Smoking Status Former smoker 02/21/25 13:53 Hx Tobacco Use No 02/21/25 13:53 Years Smoking Packs Smoked per Day Smoking Cessation Date was No - quit smoking greater 02/21/25 13:53 within the last 15 years than 15 years ago Hx Smoking Cessation Date 07/04/09 02/21/25 13:53 Hx Smoking Cessation No 02/21/25 13:53 Counseling Hematologic Medial History Hematologic Hx - storage engineer: Hematologic Medical Hx - environmental officer Hx of Blood Transfusion No 02/21/25 13:53 Hx of Transfusion in last 3 No 02/21/25 13:53 Months Date of Last Transfusion (if within last 3 months) Ever experience any problems No 02/21/25 13:53 with transfusion(s)? Specify any problems Hx of Preganancy in last 3 No 02/21/25 13:53 Months Nurse Filling Out Transfusion DSCHRIBER 02/21/25 13:53 & Questions: Date: 02/21/25 02/21/25 13:53 Time: 13:55 02/21/25 13:53 Patient unable to answer at this time (ie. confused, unrespo /Reproduction History /Reproductive History - storage engineer: /Reproductive Hx- storage engineer Hx Now No 02/21/25 13:53 Gestational Age (in weeks): EDC: Hx Hx Para Hx Section SAB No 02/21/25 13:53 Active Medications Active Medications: Current Medications Generic Name Dose Route Start Last Admin Trade Name Freq PRN Reason Stop Dose Admin Lactated Ringer's 1,000 mls @ 15 mls/hr 02/26/25 14:00 02/26/25 14:08 IV 15 mls/hr .Q48H KATHLEEN Administration PFSH Medical History Alcohol use Back pain Difficulty swallowing Gastric reflux Shortness of breath on exertion Anxiety Migraine headache Former smoker History of edema Nodular goiter Asthma Anemia Home Medications ?Medication ?Instructions ?Recorded ?Last Taken ?Type fluticasone propionate 50 1 - 2 spray intranasal DAILY PRN 01/12/25 02/24/25 History mcg/actuation nasal allergy symptoms spray,suspension omeprazole 40 mg capsule,delayed 40 mg PO DAILY 02/24/25 History release albuterol sulfate 90 mcg/actuation 1 puff inhalation Q 4H PRN PRN 02/21/25 Unknown History aerosol inhaler wheezing Allergy/AdvReac Type Severity Reaction Status Date / Time bee venom protein (honey Allergy Swelling Verified 02/26/25 13:56 bee) (bees) morphine AdvReac Severe swelling Verified 02/26/25 13:56 Family History Other Alcohol abuse Anxiety Depression Hypertension Surgical History Hx of rhinoplasty Hx of nasal septoplasty History of carpal tunnel surgery of right wrist History of carpal tunnel surgery of left wrist Hx laparoscopic cholecystectomy H/O total hysterectomy Previous section Social History Smoking Status: Former smoker alcohol intake: current alcohol intake frequency: holidays/special occasions only substance use type: does not use Review of Systems (Anesthesia) ROS Narrative System reviewed and no additional complaints, except as documented.
--- NOTE | 2025-02-26 14:45 | COLBX_PTH ---
PATIENT: KONG COURTNEY LOC: EN U#:[id number] AGE/SX: 39/F ROOM: RE02/26/[address]: Dr. Lamin Herrera DO : 1985 BED: DIS: 02/26/2025 SPEC #: [id number] RECD: 02/26/25 18:17 STATUS: JELLY ALONSO #: [id number] LAUREN: 02/26/25 14:[address]: Lamin Herrera DEPT: SURGICAL PATHOLOGY RECD BY: Luis Mojica ENTERED: 02/27/25 11:03 SP TYPE: COLON BX OTHR DR: Anisa Vee, CUSTOMER ORDER CLERK-C Tissues: A - Gastric mucous membrane B - Esophagus, NOS C - Ileum, NOS D - Cecum, NOS E - COLON BIOPSY Procedures: Immunohistochemical Stains Surgery Specimen Level IV HEADER OPERATION: Colonoscopy with biopsy, EGD with biopsy PRE-OP DIAGNOSIS: Right upper quadrant abdominal pain, choledocholithiasis, loose stools TISSUE SUBMITTED: A- Gastric body biopsy, B- Distal esophagus biopsy, C- Terminal ileum biopsy, D- Cecum biopsy, E- Random colon biopsy MICROSCOPIC DIAGNOSIS A. Gastric body, biopsy: Oxyntic mucosa with no specific pathologic change. IHC negative for H. pylori organisms. B. Distal esophagus, biopsy: Columnar mucosa with pancreatic acinar metaplasia, negative for goblet cell metaplasia. No squamous mucosa seen. C. Terminal ileum, biopsy: Prominent mucosal lymphoid tissue, favor reactive. D. Cecum, biopsy: No specific pathologic change. E. Colon, random biopsy: No specific pathologic change. The histologic features of microscopic colitis are not demonstrated. MICROSCOPIC DESCRIPTION Slides are reviewed. All matched controls reacted appropriately. These tests were developed and their performance characteristics determined by [facility]. They may not have been cleared or approved by the U.S. Food and Drug Administration. The FDA has determined that such clearance or approval is not necessary. The above immunohistochemical/dualISH markers are viewed by the Pathologist. GROSS DESCRIPTION A. Received in fixative is one container labeled with the patient's name and designated Gastric body biopsy. The specimen consists of one irregular fragment of light daily soft tissue that measures 0.7 cm. The specimen is totally submitted in one cassette. B. Received in fixative is one container labeled with the patient's name and designated Distal esophagus biopsy. The specimen consists of one irregular fragment of light daily soft tissue that measures 0.8 cm. The specimen is totally submitted in one cassette. C. Received in fixative is one container labeled with the patient's name and designated Terminal ileum biopsy. The specimen consists of two irregular fragments of light daily soft tissue that measure 0.3 and 0.4 cm. The specimen is totally submitted in one cassette. D. Received in fixative is one container labeled with the patient's name and designated Cecum biopsy. The specimen consists of one irregular fragment of light daily soft tissue that measures 0.6 cm. The specimen is totally submitted in one cassette. E. Received in fixative is one container labeled with the patient's name and designated Random colon biopsy. The specimen consists of two irregular fragments of light daily soft tissue that measure 0.5 and 0.7 cm. The specimen is totally submitted in one cassette. [place] 02/27/2025 CPT:38897m1,45722
--- NOTE | 2025-02-26 15:05 | PCM.HP.STD ---
HPI - General General Date of Admission: 02/26/25 Date of Service: 02/26/25 Chief Complaint: abdominal pain and diarrhea HPI Narrative LORETO COURTNEY, is a 39 F who presents with the Chief Complaint: abd pain RUQ US 7.9.25; common bile duct measuring 6.5 mm. An echogenic density measuring 1.2x .8x .6 cm is visualized within the CBD which may represent a stone. [facility] [place] [facility] 7.06.27 with chest and abd pain. Pt previously seen at ED a few days prior and was noted to have a stone in the CBD. CT showing possible stone in the CBD. LFTs and bilirubin wnl. CT abd/pelvis Unremarkable CT abdomen pelvis OV 7 On interview, pt endorsing 3 weeks of RUQ/epigastric pain, heartburn, difficulty swallowing, n/v and constipation. Pt is s/p cholecystectomy about 20 years ago. She has always struggled with regulating her bowels and typically has looser stools. She has been constipation lately with small hard stools. She did try Metamucil with no relief. SHe has been omeprazole for some time but it was recently increased to 40 mg once a day which did help with her heartburn. The right upper quadrant pain is constant. She has not been eating much due to lack of appetite. [facility] Medical History Alcohol use Back pain Difficulty swallowing Gastric reflux Shortness of breath on exertion Anxiety Migraine headache Former smoker History of edema Nodular goiter Asthma Anemia Home Medications ?Medication ?Instructions ?Recorded ?Last Taken ?Type fluticasone propionate 50 1 - 2 spray intranasal DAILY PRN 01/12/25 02/24/25 History mcg/actuation nasal allergy symptoms spray,suspension omeprazole 40 mg capsule,delayed 40 mg PO DAILY 01/12/25 02/24/25 History release albuterol sulfate 90 mcg/actuation 1 puff inhalation Q4H PRN PRN 02/21/25 Unknown History aerosol inhaler wheezing Allergy/AdvReac Type Severity Reaction Status Date / Time bee venom protein (honey Allergy Swelling Verified 02/26/25 13:56 bee) (bees) morphine AdvReac Severe swelling Verified 02/26/25 13:56 Family History Other Alcohol abuse Anxiety Depression Hypertension Surgical History Hx of rhinoplasty Hx of nasal septoplasty History of carpal tunnel surgery of right wrist History of carpal tunnel surgery of left wrist Hx laparoscopic cholecystectomy H/O total hysterectomy Previous section Social History Smoking Status: Former smoker alcohol intake: current alcohol intake frequency: holidays/special occasions only substance use type: does not use ROS Constitutional Constitutional: Denies fatigue, fever(s), poor appetite, weight gain or weight loss Gastrointestinal Gastrointestinal: Denies belching, bloating, change in bowel habits, change in stool character, chewing difficulty, coffee ground emesis, constipation, cramping, diarrhea, dyspepsia, dysphagia, early satiety, excessive flatus, fecal incontinence, heartburn, hematemesis, hematochezia, hemorrhoids, loose stools, melena, nausea, odynophagia, rectal bleeding, tenesmus, vomiting or weight changes Vital Signs Vital Signs Vital Signs: 02/26/25 13:57 02/26/25 13:57 02/26/25 14:26 Temperature 97.6 F L 97.6 F L Temperature Source Temporal Pulse Rate 64 64 Respiratory Rate 18 18 Respiratory Pattern Normal Blood Pressure 98/69 98/69 Blood Pressure Mean 78 Blood Pressure Source Monitor Blood Pressure Position Semi-Fowlers Blood Pressure Location Left Arm Pulse Ox 99 99 Oxygen Delivery Method Room Air Room Air Weight Weight: 198 lb 6.656 oz Body Mass Index (BMI) 35.1 Physical Exam Const alert, oriented x3, no apparent distress and healthy appearing General Appearance: cooperative GI normal to inspection, nondistended, normoactive bowel sounds, soft to palpation, non-tender and non-distended Percussion: normal to percussion Rectal Exam: deferred Assessment & Plan Assessment/Plan (1) Right upper quadrant abdominal pain: (2) Choledocholithiasis: (3) Loose stools: PLAN: Assessment and Plan Assessment and Plan (1) Loose stools: Status: Acute Plan: Loreto is a 39 yo female pt with a three week hx of RUQ/epigastric pain, n/v, heartburn, difficultly swallowing and constipation. Pt seen at [facility] and had RUQ US showing a stone in the CBD (s/p cholecystectomy 20 years prior). She presented to [facility] [place] [facility] where she had CT abd pelvis with a CBD measuring wnl. LFTs and bilirubin were normal. She was offered transfer to outside facility for possibly ERCP but she declined. Pt has an array of symptoms and I suspect there are multiple etiologies. Will start work up with repeat CMP to ensure liver enzymes and bilirubin have not become elevated. MRCP has been ordered however if bilirubin or LFTS are elevated she will be scheduled for ERCP vs MRCP. Due to issues with swallowing and heartburn she will be scheduled for EGD. She has always had issues with looser stools however over the past few months she has had new onset constipation. She will undergo colonoscopy. In the interim, I have increased omeprazole to 40 mg BID and recommend she start daily miralax. -CBC and CMP -MRCP -Possibly ERCP pending lab results -EGD -Colonoscopy -INcrease PPI and start miralax PRN (2) Right upper quadrant abdominal pain: Status: Acute (3) Choledocholithiasis: Status: Acute Orders: Orders Comprehensive Metabolic Profil Today R19.5 - Other fecal abnormalities CBC W/Diff, Automated Today R19.5 - Other fecal abnormalities MRCP Abdomen without Contrast Today K80.50 - Calculus of bile duct without cholangitis or cholecystitis without obstruction, R10.11 - Right upper quadrant pain, R19.5 - Other fecal abnormalities
[2025-02-26] MEDS: Lactated Ringers 500 ML IV (15:22)
--- NOTE | 2025-02-26 15:46 | PCM.POST.ANE ---
Anesthesia: Postop Eval I Current Vital Signs Temperature: 97 F Pulse Rate: 60 Blood Pressure: 107/68 Respiratory Rate: 18 Pulse Ox: 95 Oxygen Delivery Method: Room Air Assessment Airway patent: Yes Spontaneous unlabored respirations: Yes Mental status: Awake nausea: No Vomiting: No Anesthesia Complication: No Fluid Hydration Crystalloid volume administer (ml): 500 Total IV fluid infused: 500 Progress Note Anesthesia document: Postop Eval 1 completed: Yes
--- NOTE | 2025-02-26 15:52 | OP.EGD_ITS ---
Patient Name: Loreto Hernandez Procedure Date: 02/26/2025 3:13 PM Date of : 1985 Age: 39 Procedure: Upper GI endoscopy Indications: Epigastric abdominal pain, Functional Dyspepsia, Indigestion, Suspected reflux esophagitis Providers: Lamin Herrera DO Referring MD: Brenda Wagoner Medicines: Monitored Anesthesia Care Patient Profile: This is a 39 year old female. Refer to note in patient chart for documentation of history and physical. Patient has symptoms of chronic epigastric abdominal pain, chronic dyspepsia and chronic nausea. Complications: No immediate complications. Procedure: Pre-Anesthesia Assessment: - Prior to the procedure, a History and Physical was performed, and patient medications and allergies were reviewed. The patient is competent. The risks and benefits of the procedure and the sedation options and risks were discussed with the patient. All questions were answered and informed consent was obtained. Patient identification and proposed procedure were verified by the physician in the pre-procedure area. Mental Status Examination: alert and oriented. Airway Examination: normal oropharyngeal airway and neck mobility. Respiratory Examination: clear to auscultation. CV Examination: normal. Prophylactic Antibiotics: The patient does not require prophylactic antibiotics. Prior Anticoagulants: The patient has taken no anticoagulant or antiplatelet agents except for NSAID medication. ASA Grade Assessment: II - A patient with mild systemic disease. After reviewing the risks and benefits, the patient was deemed in satisfactory condition to undergo the procedure. The anesthesia plan was to use monitored anesthesia care (MAC). Immediately prior to administration of medications, the patient was re-assessed for adequacy to receive sedatives. The heart rate, respiratory rate, oxygen saturations, blood pressure, adequacy of pulmonary ventilation, and response to care were monitored throughout the procedure. The physical status of the patient was re-assessed after the procedure. After obtaining informed consent, the endoscope was passed under direct vision. Throughout the procedure, the patient's blood pressure, pulse, and oxygen saturations were monitored continuously. The colonoscope was introduced through the mouth, and advanced to the fourth part of the duodenum. Small bowel enteroscopy was deemed necessary. The upper GI endoscopy was accomplished without difficulty. The patient tolerated the procedure well. Scope In: 3:23:05 PM Scope Out: 3:26:08 PM Total Procedure Duration Time 0 hours 3 minutes 3 seconds Findings: A mild Schatzki ring was found in the lower third of the esophagus. Biopsies were taken with a cold forceps for histology. Verification of patient identification for the specimen was done. Estimated blood loss was minimal. Bilious fluid was found in the stomach. Suspect gastroparesis due to patient symptoms and retained gastric contents. No gross lesions were noted in the entire examined duodenum. Impression: - Mild Schatzki ring. Biopsied. - Bilious gastric fluid. - Gastroparesis. - No gross lesions in the entire examined duodenum. Recommendation: - Discharge patient to home. - Resume previous diet. - Continue present medications. - Await pathology results. Procedure Code(s): --- Professional --- 76155, Small intestinal endoscopy, enteroscopy beyond second portion of duodenum, not including ileum; with biopsy, single or multiple CPT copyright 2021 [employer]. All rights reserved. The codes documented in this report are preliminary and upon bonded strand operator review may be revised to meet current compliance requirements. Lamin Herrera DO 02/26/2025 3:52:20 PM This report has been signed electronically. Number of Addenda: 0 Note Initiated On: 02/26/2025 3:13 PM
--- NOTE | 2025-02-26 15:52 | OP.PROVAT_ITS ---
02/26/2025 Brenda Wagoner Re : Upper GI endoscopy procedure for Loreto Hernandez Dear Mariusz This procedure was performed on Wednesday, February 26, 2025. My impressions and recommendations are as follows: Impressions : - Mild Schatzki ring. Biopsied. - Bilious gastric fluid. - Gastroparesis. - No gross lesions in the entire examined duodenum. Recommendations : - Discharge patient to home. - Resume previous diet. - Continue present medications. - Await pathology results. My findings are described in the full procedure note, which is enclosed. If I can be of further assistance, please feel free to contact me at . Sincerely, Lamin Herrera, 02/26/2025 3:52:20 PM This report has been signed electronically.
--- NOTE | 2025-02-26 15:56 | OP.PROVAT_ITS ---
02/26/2025 Brenda Wagoner Re : Colonoscopy procedure for Loreto Hernandez Dear Mariusz This procedure was performed on Wednesday, February 26, 2025. My impressions and recommendations are as follows: Impressions : - Diverticulosis in the recto-sigmoid colon and in the sigmoid colon. - Redundant colon. - Congested mucosa in the sigmoid colon, in the ascending colon and in the cecum. Biopsied. - Congested mucosa in the terminal ileum. Biopsied. Recommendations : - Discharge patient to home. - Resume previous diet. - Continue present medications. - Await pathology results. - Repeat colonoscopy in 10 years for screening purposes. My findings are described in the full procedure note, which is enclosed. If I can be of further assistance, please feel free to contact me at . Sincerely, Lamin Herrera, 02/26/2025 3:55:32 PM This report has been signed electronically.
--- NOTE | 2025-02-26 15:56 | OP.COLON_ITS ---
Patient Name: Loreto Hernandez Procedure Date: 02/26/2025 3:26 PM Date of : 1985 Age: 39 Procedure: Colonoscopy Indications: Generalized abdominal pain, Chronic diarrhea Providers: DO Claire Styles MD: Brenda Wagoner Medicines: Monitored Anesthesia Care Patient Profile: This is a 39 year old female. Refer to note in patient chart for documentation of history and physical. Patient has symptoms of chronic epigastric abdominal pain, chronic dyspepsia and chronic nausea. Last Colonoscopy: none. The patient's first colonoscopy is today. Complications: No immediate complications. Procedure: Pre-Anesthesia Assessment: - Prior to the procedure, a History and Physical was performed, and patient medications and allergies were reviewed. The patient is competent. The risks and benefits of the procedure and the sedation options and risks were discussed with the patient. All questions were answered and informed consent was obtained. Patient identification and proposed procedure were verified by the physician in the pre-procedure area. Mental Status Examination: alert and oriented. Airway Examination: normal oropharyngeal airway and neck mobility. Respiratory Examination: clear to auscultation. CV Examination: normal. Prophylactic Antibiotics: The patient does not require prophylactic antibiotics. Prior Anticoagulants: The patient has taken no anticoagulant or antiplatelet agents except for NSAID medication. ASA Grade Assessment: II - A patient with mild systemic disease. After reviewing the risks and benefits, the patient was deemed in satisfactory condition to undergo the procedure. The anesthesia plan was to use monitored anesthesia care (MAC). Immediately prior to administration of medications, the patient was re-assessed for adequacy to receive sedatives. The heart rate, respiratory rate, oxygen saturations, blood pressure, adequacy of pulmonary ventilation, and response to care were monitored throughout the procedure. The physical status of the patient was re-assessed after the procedure. After I obtained informed consent, the scope was passed under direct vision. Throughout the procedure, the patient's blood pressure, pulse, and oxygen saturations were monitored continuously. The colonoscope was introduced through the anus and advanced to the terminal ileum. The colonoscopy was performed without difficulty. The patient tolerated the procedure well. The quality of the bowel preparation was adequate. The terminal ileum, ileocecal valve, appendiceal orifice, and rectum were photographed. Scope In: 3:28:07 PM Scope Withdrawal Time 0 hours 9 minutes 48 seconds Scope Out: 3:40:22 PM Total Procedure Duration Time 0 hours 12 minutes 15 seconds Findings: The perianal and digital rectal examinations were normal. A few small-mouthed diverticula were found in the recto-sigmoid colon and sigmoid colon. The sigmoid colon was redundant. An area of mildly congested mucosa was found in the sigmoid colon, in the ascending colon and in the cecum. Biopsies were taken with a cold forceps for histology. Verification of patient identification for the specimen was done. Estimated blood loss was minimal. A patchy area of the terminal ileum was congested. Biopsies were taken with a cold forceps for histology. Verification of patient identification for the specimen was done. Estimated blood loss was minimal. Impression: - Diverticulosis in the recto-sigmoid colon and in the sigmoid colon. - Redundant colon. - Congested mucosa in the sigmoid colon, in the ascending colon and in the cecum. Biopsied. - Congested mucosa in the terminal ileum. Biopsied. Recommendation: - Discharge patient to home. - Resume previous diet. - Continue present medications. - Await pathology results. - Repeat colonoscopy in 10 years for screening purposes. Procedure Code(s): --- Professional --- 35078, Colonoscopy, flexible; with biopsy, single or multiple CPT copyright 2021 [employer]. All rights reserved. The codes documented in this report are preliminary and upon cheesemaking laborer review may be revised to meet current compliance requirements. Lamin Herrera DO 02/26/2025 3:55:32 PM This report has been signed electronically. Number of Addenda: 0 Note Initiated On: 02/26/2025 3:26 PM
== END 2025-02-26 16:46 | disposition home or self-care (01) ==
LOC: EN 13:43 → AC 13:45
PROVIDERS: PCP Registered Nurse; Referring Provider Registered Nurse; Visit Provider Internal Medicine Gastroenterology
PROC: 0DJD8ZZ Inspection of Lower Intestinal Tract, Via Natural or Artificial Opening Endoscopic (ICD-10-PCS; CPT 45378; principal; 2025-02-26 14:40)
DX: K22.70 Barrett's esophagus without dysplasia (principal); Q43.8 Other specified congenital malformations of intestine; K31.84 Gastroparesis; Z87.891 Personal history of nicotine dependence; K80.50 Calculus of bile duct without cholangitis or cholecystitis without obstruction; Z90.49 Acquired absence of other specified parts of digestive tract; Z79.899 Other long term (current) drug therapy; J45.909 Unspecified asthma, uncomplicated; K22.2 Esophageal obstruction; K21.9 Gastro-esophageal reflux disease without esophagitis
CPT/HCPCS: 45380; 44361; 88305; 88342

== ENCOUNTER → 2025-03-01 | Outpatient (CLI) | payer MEDICAID, SELFPAY ==
--- NOTE | 2025-03-01 14:03 | MRI_ITS ---
PROCEDURE: MRCP ABDOMEN WITHOUT CONTRAST 03/01/2025 REASON FOR EXAM: RUQ PAIN, ?CBD STONE TECHNIQUE: Procedure Code: MRIMRCP Modality: MR Procedure: MRCP ABDOMEN WITHOUT CONTRAST Multiplanar and multisequence images were obtained. COMPARISON: Abdominal CT 01/12/2025. FINDINGS: Liver: Normal in size. No focal lesion is seen in the liver. Biliary: The gallbladder is surgically absent. Mild postoperative prominence of the CBD and proximal intrahepatic biliary ducts. CBD measures up to 5 mm in diameter. No filling defects are appreciated within the biliary ductal system to indicate choledocholithiasis. Pancreas: Unremarkable. No focal lesion or ductal dilatation. Spleen: Normal in size. Subcentimeter benign-appearing cyst posteriorly. Adrenals: Normal. No nodules. Kidneys: Unremarkable. No mass or hydronephrosis. Peritoneum / Retroperitoneum: Unremarkable. No ascites or lymphadenopathy. Major Vessels: Normal in course and caliber. Bones: Minimal degenerative changes of the visualized spine. MRI/MRCP Abdomen without Contrast IMPRESSION: Status post cholecystectomy. Mild postoperative prominence of the CBD and prox imal intrahepatic biliary ducts without evidence for stricture or choledocholithiasis. No acute pathology. Reading Location: [id number]
--- NOTE | 2025-03-01 15:46 | NURSING ---
LISA Locke was called to evaluate pt post-MRI for redness on chest and pt describes a burning skin sensation on chest and ears, repair tech concerned about hives. Pt did not have contrast during MRI. Upon initial assessment at approximately 1505 pt breathing normally at 16bpm. Bilaterally pt's ears are red as well as approximately 1cm in front of each ear. Pt's chest is also red. Pt had an MRCP study done where her chest was not under an MRI coil. Pt mentioned she wore the headphones and the headphone cord was over her chest. Pt also states her back feels hot. VS taken at 1510 BP:113/74 HR 54 Resp 16 SpO2 100%. LISA Locke asked if the pt felt comfortable to sit and have a snack while waiting in radiology to see if the redness lessened at all. Pt agreeable. Pt given water and saltines. At 1520 repair tech, Tonie came to see pt as well. Possible scenarios discussed with the patient: MRI hydrogen ions making pt feel off as she had described, pt having sensitivity to cleaning solution used on headphones, anxiety during MRI. VS taken at 1520 BP: 147/89 HR: 59 Resp 16 SpO2 100%. Pt's redness has minimized slightly, still red bilateral ears, chest and back. Pt does not feel she needs to be seen in ED. Pt advised to return to the ED if she feels any shortness of breath or swelling of throat or tongue. Pt observed for a total of 30 minutes post-MRI and taken to main entrance via wheelchair.
== END | disposition home or self-care (01) ==
LOC: MRI 14:00
PROVIDERS: PCP Registered Nurse; Referring Provider Student in an Organized Health Care Education/Training Program; Visit Provider Student in an Organized Health Care Education/Training Program
DX: R19.5 Other fecal abnormalities (principal); R10.11 Right upper quadrant pain; K80.50 Calculus of bile duct without cholangitis or cholecystitis without obstruction
CPT/HCPCS: 74181; J2405